=== PATIENT | female | born 1970 | race Caucasian/White ===

== ENCOUNTER → 2017-09-11 15:13 | Outpatient (CLI) | payer MEDICAID, SELFPAY ==
--- NOTE | 2017-09-11 | DI.MG.S_ITS ---
BILATERAL DIGITAL SCREENING MAMMOGRAM 3D/2D WITH CAD: 09/11/2017 CLINICAL: Routine screening. Baseline exam. Family history of breast cancer. No prior exams were available for comparison. The tissue of both breasts is heterogeneously dense. This may lower the sensitivity of mammography. Current study was also evaluated with a Computer Aided Detection (CAD) system. No significant masses, calcifications, or other findings are seen in either breast. IMPRESSION: NEGATIVE There is no mammographic evidence of malignancy. A 1 year screening mammogram is recommended. This exam was interpreted at Station ID: [id number]. NOTE: For mammograms, a report in lay terms will be sent to the patient. Approximately 15% of breast malignancies will not be visualized mammographically. In the management of a palpable breast mass, a negative mammogram must not discourage biopsy of a clinically suspicious lesion. Electronically Signed By: Gualberto amado/cat:09/11/2017 16:01:21 letter sent: Normal Exam ACR BI-RADS Category 1: Negative [id number]
== END ==
PROVIDERS: PCP Family Medicine; Visit Provider Family Medicine
DX: Z12.31 Encounter for screening mammogram for malignant neoplasm of breast (principal); Z80.3 Family history of malignant neoplasm of breast
CPT/HCPCS: 77063; 77067

== ENCOUNTER → 2017-09-17 16:05 | Outpatient (CLI) | payer MEDICAID, SELFPAY ==
--- NOTE | 2017-09-17 16:07 | DI.US.S_ITS ---
PROCEDURE: US PELVIC COMPLETE INDICATIONS: IUD strings lost TECHNIQUE: Real-time scanning was performed of the pelvic organs, with image documentation. Additional endovaginal scanning was necessary due to incomplete visualization of the adnexal and endometrial structures by transabdominal scanning. COMPARISON: CT, ABD/PELVIS W/CON (PNL), 02/05/2006, 11:21. FINDINGS: Transabdominal scanning: Limited scanning through the kidneys shows no hydronephrosis. No pathologic free abdominal or pelvic fluid. Endovaginal scanning: Uterus: Uterus is normal in size at 7.7 x 3.8 x 4.7 cm. The endometrium is not well-visualized. Intrauterine device in expected position. Ovaries: Bilateral simple ovarian cysts are present measuring up to 2.1 cm on the right and 3.2 cm on the left. There is a mildly complex cyst present also within the right ovary measuring up to 1.8 cm. Doppler assessment demonstrates no internal flow. IMPRESSION: 1. Intrauterine device in expected position. 2. Bilateral ovarian cysts, one of which on the right is mildly complex measuring up to 1.8 cm. Recommend short-term followup pelvic ultrasound in 6-12 weeks to assess for interval resolution. Dictated by: Uriah NAVAA Interpreted: Tanja Santiago MD on 09/17/2017 at 16:57 Approved by: Tanja Santiago MD, PhD on 09/18/2017 at 9:27
== END ==
PROVIDERS: PCP Family Medicine; Visit Provider Family Medicine
DX: T83.32XA Displacement of intrauterine contraceptive device, initial encounter (principal); N83.291 Other ovarian cyst, right side; N83.292 Other ovarian cyst, left side
CPT/HCPCS: 76830; 76856

== ENCOUNTER → 2017-10-14 10:50 | Outpatient (CLI) | payer MEDICAID, SELFPAY ==
[2017-10-14 14:27] LABS: Urine N gonorrhoeae NOT DETECTED
[2017-10-14 14:46] LABS: Urine Chlamydia NOT DETECTED
== END ==
PROVIDERS: PCP Family Medicine; Visit Provider Physician Assistant
DX: N72 Inflammatory disease of cervix uteri (principal)
CPT/HCPCS: 87070; 87075; 87205; 87210; 87491; 87591

== ENCOUNTER → 2018-01-06 09:51 | Outpatient (CLI) | payer MEDICAID, SELFPAY | PROVIDERS: PCP Family Medicine; Visit Provider Family Medicine | DX: N89.9 Noninflammatory disorder of vagina, unspecified (principal); N76.0 Acute vaginitis; N75.0 Cyst of Bartholin's gland | CPT/HCPCS: 87070; 87147; 87205; 87491; 87591 ==

== ENCOUNTER → 2018-01-21 14:32 | Outpatient (CLI) | payer MEDICAID, SELFPAY ==
--- NOTE | 2018-01-21 14:34 | DI.US.S_ITS ---
PROCEDURE: US PELVIC COMPLETE INDICATIONS: FOLLOW-UP OVARIAN CYSTS TECHNIQUE: Real-time scanning was performed of the pelvic organs, with image documentation. Additional endovaginal scanning was necessary due to incomplete visualization of the adnexal and endometrial structures by transabdominal scanning. COMPARISON: [facility], US, US PELVIC COMPLETE, 09/17/2017, 16:24. FINDINGS: Transabdominal scanning: Limited scanning through the kidneys shows no hydronephrosis. No pathologic free abdominal or pelvic fluid. Endovaginal scanning: Uterus: Uterus is normal in size at 8.1 x 3.5 x 4.8 cm. The endometrium not well-seen. IUD in expected position. 1.6 cm intramural fibroid and there is a small adjacent calcification measuring 5.0 mm. Ovaries: Right ovary measures 2.6 x 1.5 x 1.4 cm and the left 5.1 x 3.8 x 3.4 cm. Previously visualized complex right ovarian cyst has resolved. There is a new complex cyst involving the left ovary measuring 3.1 x 2.6 x 3.1 cm. 2 additional simple cyst involving the left ovary measuring up to 2.3 cm. Cyst visualized within the cul-de-sac measuring 4.3 x 2.6 x 3.3 cm. IMPRESSION: 1. Resolved previously visualized complex right ovarian cyst. 2. Apparent new complex cyst now involving the left ovary with fine low level echoes measure up to 3.1 cm which may represent a small hemorrhagic cyst or possibly an endometrioma. Short-term followup pelvic ultrasound in 6-12 weeks is recommended to assess for interval resolution. 3. 2 simple cysts involving the left ovary measuring up to 2.3 cm. 4. Presumed parovarian cyst within the cul-de-sac measuring up to 4.3 cm which can also be reassessed on followup examination. Dictated by: Uriah Varela [facility] Interpreted: Tanja Santiago MD on 01/21/2018 at 15:21 Approved by: Tanja Santiago MD, PhD on 01/21/2018 at 16:39
== END ==
PROVIDERS: PCP Family Medicine; Visit Provider Family Medicine
DX: N83.292 Other ovarian cyst, left side (principal); D25.1 Intramural leiomyoma of uterus; N85.8 Other specified noninflammatory disorders of uterus; Z97.5 Presence of (intrauterine) contraceptive device
CPT/HCPCS: 76830; 76856

== ENCOUNTER 2018-06-17 15:15 | Outpatient (RCR) | payer MEDICAID, SELFPAY ==
--- NOTE | 2018-05-12 16:05 | PT.OIE ---
Current Diagnoses Radiculopathy, lumbar region (05/12/18) Past Medical History (Last Reviewed 01/08/18 @ 18:36 by Silva Laws DO) Anxiety (Chronic 2006) Chronic back pain (Chronic 1994) Depression (Chronic 2006) Frequent UTI (Chronic Unknown) Genital warts (Chronic 1991) IBS (irritable bowel syndrome) (Chronic 2007) Painful menstrual periods (Chronic 1991) Abnormal Pap smear of cervix (Resolved 1991) Chickenpox (Resolved 1977) Chlamydia (Resolved 1985) Endometriosis (Resolved 1991) Fibroids (Resolved Unknown) Heavy menstrual period (Resolved 1991) Past Surgical History (Last Reviewed 01/08/18 @ 18:36 by Silva Laws DO) Hx of tonsillectomy (Resolved 1978) Hx of tubal ligation (Resolved 1994) Provider Visit Care Team Role Provider Type Silva Laws DO Attending Provider Physician Primary Care Provider Specialty: Family Practice Address: [address] [place] [address] Email: [email or web address] Physical Therapy Initial Evaluation PT-OP-A Visit Information Start: 05/12/18 17:01 Freq: Status: Active Protocol: Document 05/12/18 16:05 RCC (Rec: 05/12/18 17:30 RCC [email or web address]) Out-Patient Physical Therapy Visit Information Visit Information Visit Type Initial Evaluation Visit Start Time 16:05 Visit Stop Time 16:50 Total Visit Minutes 45 Visit Number 1 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 ago Current Complaints low back pain radiating into R buttock History of Current Condition Pt is a 47 y/o female presenting to physical therapy with a c/o R sided low back pain, with pain into R buttock . She notes occasionally pain into the R posterior and lateral thigh, with tingling but denies numbness. Denies any saddle numbness, or changes in bowel and bladder function. Pt notes a low back injury in her 20's when she was carrying a heavy back of concrete mix, she tripped and dropped the bag, bent forward, caught the bag but had multiple pops in low back and found to have multiple herniated discs. She has had chronic low back pain, which would come and go since then. Over the past month, pt notes pain has intensified, improving somewhat with anti- inflammatories, heat and ice. Pt had done PT in the past with good results. No new FRANSISCO for increased pain, but does admit that pain increased after a trip to/from [email or web address] from this area (prolonged sitting in car). 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 She works full-time. Future Testing and Treatments Planned radiograph and MRI if not improving Treatment Goals Patient/Caregiver Goals to be able to go to the gym to do cardio and weight lifting, improve core strength Prior Functional Status Baseline Function- Work/School no increase in back pain with work related tasks Current Functional Impairments (Reported) Functional Limitations- Work/School increased pain while at work due to prolonged standing, twisting, lifting Personal Factors Other Personal Factors That May Effect current every day smoker, h/o Therapy/Recovery disc herniations in her age of 20's. PT-OP-C Subjective Start: 05/12/18 17:01 Freq: Status: Active Protocol: Document 05/12/18 16:05 RCC (Rec: 05/12/18 17:30 RCC [email or web address]) OP-PT Subjective Patient Comments Patient Comments Low back pain was getting better this week until yesterday, she has had increased pain Patient Questionnaires Oswestry Low Back Index Oswestry Score 22 OP-PT Pain Assessment Location R low back and buttock Intensity 2 Scale Used Numeric (1 - 10) Frequency Intermittent Pain Aggravating Factors Position Standing Sitting Lifting Pain Alleviating Factors Cold Heat Medication PT-OP-D Balance Start: 05/12/18 17:01 Freq: Status: Active Protocol: Document 05/12/18 16:05 RCC (Rec: 05/12/18 17:30 RCC [email or web address]) Balance Tests Single Limb Standing Single Limb- Right 15 sec Single Limb- Left 15 sec PT-OP-F Manual Assessment Start: 05/12/18 17:01 Freq: Status: Active Protocol: Document 05/12/18 16:05 RCC (Rec: 05/12/18 17:30 RCC [email or web address]) Manual Assessments Soft Tissue Assessment Soft Tissue Mobility Assessment moderate tension in R QL, L1-5 paraspinals, piriformis, gluteus medius and jennifer Joint Mobility Assessment Joint Mobility Assessment hypermobile L1, L3-5 PT-OP-H Neuro Start: 05/12/18 17:01 Freq: Status: Active Protocol: Document 05/12/18 16:05 RCC (Rec: 05/12/18 17:30 RCC [email or web address]) Sensation Evaluation Gross Sensation Gross Sensation WNL Deep Tendon Reflex & Clonus Assessment Deep Tendon Reflex Bilateral Achilles Deep Tendon Reflex 2+ Normal Right Patellar Deep Tendon Reflex 2+ Normal Left Patellar Deep Tendon Reflex 3+ Normal But Brisk Ankle Clonus Bilateral Clonus Assessment Absent PT-OP-J Posture/Palpation/Skin Start: 05/12/18 17:01 Freq: Status: Active Protocol: Document 05/12/18 16:05 RCC (Rec: 05/12/18 17:30 RCC [email or web address]) Posture Evaluation Comments Posture Comments Mild lateral sidebent position to the L in the lumbar spine, pelvic shift to the R in frontal plane, increased WB on the LLE PT-OP-K Range of Motion Start: 05/12/18 17:01 Freq: Status: Active Protocol: Document 05/12/18 16:05 RCC (Rec: 05/12/18 17:30 RCC [email or web address]) Lumbar Spine Range of Motion Lumbar Spine Active Percentage Testing Position Standing Lateral Flexion Left 75 Lateral Flexion Right 50 ROM Limitations Soft Tissue Tightness Pain Active Degrees Testing Position Standing Flexion 80 Extension 15 ROM Limitations Soft Tissue Tightness Pain PT-OP-L Special Tests Start: 05/12/18 17:01 Freq: Status: Active Protocol: Document 05/12/18 16:05 RCC (Rec: 05/12/18 17:30 RCC [email or web address]) Special Tests Lumbar Spine Special Tests Prone Instability Test Test Results positive R Comments L1, L3-5 Slump Test Results positive B Manual Traction Test Results negative Straight Leg Raise Test Results positive R Hip Special Tests Scour Test Test Results negative B RHONA Test Results positive R Neural Special Tests- Lower Body Sciatic Nerve Tension Test Results positive B Femoral Nerve Tension Test Results positive R PT-OP-M Strength Start: 05/12/18 17:01 Freq: Status: Active Protocol: Document 05/12/18 16:05 RCC (Rec: 05/12/18 17:30 RCC [email or web address]) Hip Strength Hip Manual Muscle Testing Right Flexion (L2) 4+ Good+ Adduction 5 Normal External Rotation 5 Normal Internal Rotation 5 Normal Left Flexion (L2) 5 Normal Adduction 5 Normal External Rotation 5 Normal Internal Rotation 5 Normal Knee Strength Knee Manual Muscle Testing Right Flexion (S2) 5 Normal Extension (L3) 4+ Good+ Left Flexion (S2) 5 Normal Extension (L3) 5 Normal Ankle/Foot Strength Ankle and Foot Manual Muscle Testing Right Dorsiflexion (L4) 5 Normal Plantarflexion (S1) 4 Good Inversion 5 Normal Eversion (S1) 5 Normal Comments 15 reps SL heel raise Left Dorsiflexion (L4) 5 Normal Plantarflexion (S1) 5 Normal Inversion 5 Normal Eversion (S1) 5 Normal Comments 25 reps SL heel raise Toe Strength Toe Manual Muscle Testing Right Great Toe Extension 5 Normal Left Great Toe Extension 5 Normal PT-OP-Q Treatments Start: 05/12/18 17:01 Freq: Status: Active Protocol: Document 05/12/18 16:05 [facility] (Rec: 05/12/18 17:30 RCC [email or web address]) Therapeutic Exercises Supine Exercises SKC Side bilateral Reps/Minutes 30 sec hold piriformis stretch Side right Reps/Minutes 30 sec gluteal sets Side bilateral Reps/Minutes x10 Comments 5 sec hold (unable to do unilateral) TA activation Supine Exercise Name transverse abdominal activation Side bilateral Reps/Minutes x10 Comments 5 sec hold PT-OP-T Assessment and Plan Start: 05/12/18 17:01 Freq: Status: Active Protocol: Document 05/12/18 16:05 [facility] (Rec: 05/12/18 17:30 RCC [email or web address]) Physical Therapy Assessment Rehab Potential Rehabilitation Potential Good Evaluation Complexity Number of Personal Factors/Comorbidities 1-2 Number of Body Systems Impaired 4 or More Clinical Presentation at Evaluation Stable Impairments Impairments Pain Posture ROM Soft Tissue Mobility Strength Goals LE strength Impairment R hip and knee flexion weakness Alf Goal (LTG) 5/5 hip flexion and knee flexion with manual muscle testing without low back or buttock pain prior to d/c. LTG Duration 6 weeks Recreational Activities Impairment unable to go to the gym due to low back pain Short Term Goal (STG) pt will participate in gym cardio and resistance training 2 days per week for 45 min without increased low back pain. 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 LTG Duration 6 weeks Pain- low back and buttock Impairment 2/10 rating Alf Goal (LTG) 0/10 low back pain with normal work-related tasks prior to d /c. LTG Duration 6 weeks Modified Oswestry Impairment 22% perceived disability Short Term Goal (STG) <12% Modified Oswestry score to demonstrate improvements with functional activities STG Duration 3 weeks Business Education Instructor Goal (LTG) <6% Modified Oswestry score to demonstrate improvements with functional activities LTG Duration 6 weeks Assessment Summary Assessment Pt overall presents with increased tension/tone in the R quadratus lumborum, piriformis, gluteals, and lumbar paraspinals, as well as hypermobility of L1 and L3-5, with pain noted on the R with PA mobilizations. Pt would greatly benefit from skilled physical therapy interventions to decrease low back and buttock pain, centralize her symptoms, improve LE strength and core stability and to return to prior level of recreational activities and work-related tasks without increased low back pain. Pt's neuro signs WNL at this time, but positive SLR noted on the R. Pain mostly into extension of the lumbar spine, no pain with forward flexion, therefore will need to guide pt into activities that do not aggravate her low back pain once her tone is decreased. She was set up with a HEP today, and would benefit from Pt 1x/wk for 6 wks to continue to progress her HEP. Physical Therapy Plan Frequency and Duration Frequency of Treatment 1x/Week Duration of Treatment 6 weeks Plan of Care Start Date 05/12/18 Plan of Care End Date 06/23/18 Therapeutic Interventions Therapeutic Interventions Aquatic Therapy Home Exercise Program Joint Mobilizations Manual Therapy Neuromuscular Re-education Patient/Caregiver Education Self-Care/Home Management Soft Tissue Mobilization Taping Therapeutic Activities Therapeutic Exercises Modalities Cold Pack/Ice Massage Electric Stimulation Hot Packs Traction- Mechanical Ultrasound Next Visit Focus/Plan Next Note Type Treatment Note Next Visit Plan progress core stabilization as tolerated (start with flexion bias), modalities and manual therapy for pain control.
--- NOTE | 2018-06-10 16:45 | PT.OTN ---
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 ago Current Complaints low back pain radiating into R buttock History of Current Condition Pt is a 47 y/o female presenting to physical therapy with a c/o R sided low back pain, with pain into R buttock . She notes occasionally pain into the R posterior and lateral thigh, with tingling but denies numbness. Denies any saddle numbness, or changes in bowel and bladder function. Pt notes a low back injury in her 20's when she was carrying a heavy back of concrete mix, she tripped and dropped the bag, bent forward, caught the bag but had multiple pops in low back and found to have multiple herniated discs. She has had chronic low back pain, which would come and go since then. Over the past month, pt notes pain has intensified, improving somewhat with anti- inflammatories, heat and ice. Pt had done PT in the past with good results. No new FRANSISCO for increased pain, but does admit that pain increased after a trip to/from [place] from this area (prolonged sitting in car). 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 She works full-time. Future Testing and Treatments Planned radiograph and MRI if not improving Treatment Goals Patient/Caregiver Goals to be able to go to the gym to do cardio and weight lifting, improve core strength Prior Functional Status Baseline Function- Work/School no increase in back pain with work related tasks Current Functional Impairments (Reported) Functional Limitations- Work/School increased pain while at work due to prolonged standing, twisting, lifting Personal Factors Other Personal Factors That May Effect current every day smoker, h/o Therapy/Recovery disc herniations in her age of 20's. PT-OP-C Subjective Start: 05/12/18 17:01 Freq: Status: Active Protocol: Document 06/10/18 16:45 RCC (Rec: 06/10/18 17:55 RCC [email or web address]) OP-PT Subjective Patient Comments Patient Comments Pt states her pain has been good this week, she has joined [employer]. PT-OP-D Balance Start: 05/12/18 17:01 Freq: Status: Active Protocol: Document 05/12/18 16:05 RCC (Rec: 05/12/18 17:30 RCC [email or web address]) Balance Tests Single Limb Standing Single Limb- Right 15 sec Single Limb- Left 15 sec PT-OP-F Manual Assessment Start: 05/12/18 17:01 Freq: Status: Active Protocol: Document 06/10/18 16:45 RCC (Rec: 06/10/18 17:55 RCC [email or web address]) Manual Assessments Other Manual Assessments Other Manual Assessments neutral/even ASIS in supine PT-OP-H Neuro Start: 05/12/18 17:01 Freq: Status: Active Protocol: Document 05/12/18 16:05 RCC (Rec: 05/12/18 17:30 RCC [email or web address]) Sensation Evaluation Gross Sensation Gross Sensation WNL Deep Tendon Reflex & Clonus Assessment Deep Tendon Reflex Bilateral Achilles Deep Tendon Reflex 2+ Normal Right Patellar Deep Tendon Reflex 2+ Normal Left Patellar Deep Tendon Reflex 3+ Normal But Brisk Ankle Clonus Bilateral Clonus Assessment Absent PT-OP-J Posture/Palpation/Skin Start: 05/12/18 17:01 Freq: Status: Active Protocol: Document 05/12/18 16:05 RCC (Rec: 05/12/18 17:30 RCC [email or web address]) Posture Evaluation Comments Posture Comments Mild lateral sidebent position to the L in the lumbar spine, pelvic shift to the R in frontal plane, increased WB on the LLE PT-OP-K Range of Motion Start: 05/12/18 17:01 Freq: Status: Active Protocol: Document 05/12/18 16:05 RCC (Rec: 05/12/18 17:30 RCC [email or web address]) Lumbar Spine Range of Motion Lumbar Spine Active Percentage Testing Position Standing Lateral Flexion Left 75 Lateral Flexion Right 50 ROM Limitations Soft Tissue Tightness Pain Active Degrees Testing Position Standing Flexion 80 Extension 15 ROM Limitations Soft Tissue Tightness Pain PT-OP-L Special Tests Start: 05/12/18 17:01 Freq: Status: Active Protocol: Document 05/12/18 16:05 RCC (Rec: 05/12/18 17:30 RCC [email or web address]) Special Tests Lumbar Spine Special Tests Prone Instability Test Test Results positive R Comments L1, L3-5 Slump Test Results positive B Manual Traction Test Results negative Straight Leg Raise Test Results positive R Hip Special Tests Scour Test Test Results negative B RHONA Test Results positive R Neural Special Tests- Lower Body Sciatic Nerve Tension Test Results positive B Femoral Nerve Tension Test Results positive R PT-OP-M Strength Start: 05/12/18 17:01 Freq: Status: Active Protocol: Document 05/12/18 16:05 RCC (Rec: 05/12/18 17:30 RCC [email or web address]) Hip Strength Hip Manual Muscle Testing Right Flexion (L2) 4+ Good+ Adduction 5 Normal External Rotation 5 Normal Internal Rotation 5 Normal Left Flexion (L2) 5 Normal Adduction 5 Normal External Rotation 5 Normal Internal Rotation 5 Normal Knee Strength Knee Manual Muscle Testing Right Flexion (S2) 5 Normal Extension (L3) 4+ Good+ Left Flexion (S2) 5 Normal Extension (L3) 5 Normal Ankle/Foot Strength Ankle and Foot Manual Muscle Testing Right Dorsiflexion (L4) 5 Normal Plantarflexion (S1) 4 Good Inversion 5 Normal Eversion (S1) 5 Normal Comments 15 reps SL heel raise Left Dorsiflexion (L4) 5 Normal Plantarflexion (S1) 5 Normal Inversion 5 Normal Eversion (S1) 5 Normal Comments 25 reps SL heel raise Toe Strength Toe Manual Muscle Testing Right Great Toe Extension 5 Normal Left Great Toe Extension 5 Normal PT-OP-Q Treatments Start: 05/12/18 17:01 Freq: Status: Active Protocol: Document 06/10/18 16:45 RCC (Rec: 06/10/18 17:55 RCC [email or web address]) Cardio Equipment Elliptical Duration (Minutes) 2 Resistance 1 Other retro Recumbent Elliptical (Biodex) Duration (Minutes) 7 Resistance 1 Therapeutic Exercises Supine Exercises supine on foam roll Reps/Minutes 1 min Comments lying on foam roll working on PPT to maintain neutral spine sciatic nerve glide Side bilateral Reps/Minutes x5 each LE Comments tensioner PPT Supine Exercise Name posterior pelvic tilt Side bilateral Reps/Minutes x10 Comments tactile cuing SKC Side bilateral Reps/Minutes 30 sec hold TA activation Supine Exercise Name transverse abdominal activation Side bilateral Reps/Minutes x10 Comments 5 sec hold Standing Exercises triceps push down Side bilateral Resistance L4 Reps/Minutes x15 Other Exercises angry cat Side bilateral Reps/Minutes x10 Comments back to neutral (no cow/camel) PT-OP-T Assessment and Plan Start: 05/12/18 17:01 Freq: Status: Active Protocol: Document 06/10/18 16:45 RCC (Rec: 06/10/18 17:55 RCC [email or web address]) Physical Therapy Assessment Assessment Summary Assessment Pt required tactile cuing for PPT, as well as quadruped angry cat activity. She continues to require verbal cuing for core stabilization with standing exercises, but overall tolerated exercises well without c/o pain. Physical Therapy Plan Frequency and Duration Frequency of Treatment 1x/Week Duration of Treatment 6 weeks Plan of Care Start Date 05/12/18 Plan of Care End Date 06/23/18 Next Visit Focus/Plan Next Note Type Treatment Note Next Visit Plan advance core stabilization, TA and PPT on foam roll
--- NOTE | 2018-06-17 16:30 | PT.OTN ---
Current Diagnoses Radiculopathy, lumbar region (06/17/18) Physical Therapy Treatment Note PT-OP-A Visit Information Start: 05/12/18 17:01 Freq: Status: Active Protocol: Document 06/17/18 16:18 SA (Rec: 06/17/18 16:30 SA [email or web address]) Out-Patient Physical Therapy Visit Information Visit Information Visit Type Treatment Note Visit Start Time 15:15 Visit Stop Time 15:55 Total Visit Minutes 40 Visit Number 3 Number of TMD TEACHER Visits 1 PT-OP-B Current Condition Start: 05/12/18 17:01 Freq: Status: Active Protocol: Document 05/12/18 16:05 RCC (Rec: 05/12/18 17:30 RCC [email or web address]) Current Condition History of Current Condition Onset Date 1 mo. ago Current Complaints low back pain radiating into R buttock History of Current Condition Pt is a 47 y/o female presenting to physical therapy with a c/o R sided low back pain, with pain into R buttock . She notes occasionally pain into the R posterior and lateral thigh, with tingling but denies numbness. Denies any saddle numbness, or changes in bowel and bladder function. Pt notes a low back injury in her 20's when she was carrying a heavy back of concrete mix, she tripped and dropped the bag, bent forward, caught the bag but had multiple pops in low back and found to have multiple herniated discs. She has had chronic low back pain, which would come and go since then. Over the past month, pt notes pain has intensified, improving somewhat with anti- inflammatories, heat and ice. Pt had done PT in the past with good results. No new FRANSISCO for increased pain, but does admit that pain increased after a trip to/from [email or web address] from this area (prolonged sitting in car). 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 She works full-time. Future Testing and Treatments Planned radiograph and MRI if not improving Treatment Goals Patient/Caregiver Goals to be able to go to the gym to do cardio and weight lifting, improve core strength Prior Functional Status Baseline Function- Work/School no increase in back pain with work related tasks Current Functional Impairments (Reported) Functional Limitations- Work/School increased pain while at work due to prolonged standing, twisting, lifting Personal Factors Other Personal Factors That May Effect current every day smoker, h/o Therapy/Recovery disc herniations in her age of 20's. PT-OP-C Subjective Start: 05/12/18 17:01 Freq: Status: Active Protocol: Document 06/17/18 16:18 SA (Rec: 06/17/18 16:30 SA [email or web address]) OP-PT Subjective Patient Comments Patient Comments Pt reports progress, almost completely symtom free. Much more aware of core and able to stailize better with work tasks. PT-OP-D Balance Start: 05/12/18 17:01 Freq: Status: Active Protocol: Document 05/12/18 16:05 RCC (Rec: 05/12/18 17:30 RCC [email or web address]) Balance Tests Single Limb Standing Single Limb- Right 15 sec Single Limb- Left 15 sec PT-OP-F Manual Assessment Start: 05/12/18 17:01 Freq: Status: Active Protocol: Document 06/10/18 16:45 RCC (Rec: 06/10/18 17:55 RCC [email or web address]) Manual Assessments Other Manual Assessments Other Manual Assessments neutral/even ASIS in supine PT-OP-H Neuro Start: 05/12/18 17:01 Freq: Status: Active Protocol: Document 05/12/18 16:05 RCC (Rec: 05/12/18 17:30 RCC [email or web address]) Sensation Evaluation Gross Sensation Gross Sensation WNL Deep Tendon Reflex & Clonus Assessment Deep Tendon Reflex Bilateral Achilles Deep Tendon Reflex 2+ Normal Right Patellar Deep Tendon Reflex 2+ Normal Left Patellar Deep Tendon Reflex 3+ Normal But Brisk Ankle Clonus Bilateral Clonus Assessment Absent PT-OP-J Posture/Palpation/Skin Start: 05/12/18 17:01 Freq: Status: Active Protocol: Document 05/12/18 16:05 RCC (Rec: 05/12/18 17:30 RCC [email or web address]) Posture Evaluation Comments Posture Comments Mild lateral sidebent position to the L in the lumbar spine, pelvic shift to the R in frontal plane, increased WB on the LLE PT-OP-K Range of Motion Start: 05/12/18 17:01 Freq: Status: Active Protocol: Document 05/12/18 16:05 RCC (Rec: 05/12/18 17:30 RCC [email or web address]) Lumbar Spine Range of Motion Lumbar Spine Active Percentage Testing Position Standing Lateral Flexion Left 75 Lateral Flexion Right 50 ROM Limitations Soft Tissue Tightness Pain Active Degrees Testing Position Standing Flexion 80 Extension 15 ROM Limitations Soft Tissue Tightness Pain PT-OP-L Special Tests Start: 05/12/18 17:01 Freq: Status: Active Protocol: Document 05/12/18 16:05 RCC (Rec: 05/12/18 17:30 RCC [email or web address]) Special Tests Lumbar Spine Special Tests Prone Instability Test Test Results positive R Comments L1, L3-5 Slump Test Results positive B Manual Traction Test Results negative Straight Leg Raise Test Results positive R Hip Special Tests Scour Test Test Results negative B RHONA Test Results positive R Neural Special Tests- Lower Body Sciatic Nerve Tension Test Results positive B Femoral Nerve Tension Test Results positive R PT-OP-M Strength Start: 05/12/18 17:01 Freq: Status: Active Protocol: Document 05/12/18 16:05 [facility] (Rec: 05/12/18 17:30 RCC [email or web address]) Hip Strength Hip Manual Muscle Testing Right Flexion (L2) 4+ Good+ Adduction 5 Normal External Rotation 5 Normal Internal Rotation 5 Normal Left Flexion (L2) 5 Normal Adduction 5 Normal External Rotation 5 Normal Internal Rotation 5 Normal Knee Strength Knee Manual Muscle Testing Right Flexion (S2) 5 Normal Extension (L3) 4+ Good+ Left Flexion (S2) 5 Normal Extension (L3) 5 Normal Ankle/Foot Strength Ankle and Foot Manual Muscle Testing Right Dorsiflexion (L4) 5 Normal Plantarflexion (S1) 4 Good Inversion 5 Normal Eversion (S1) 5 Normal Comments 15 reps SL heel raise Left Dorsiflexion (L4) 5 Normal Plantarflexion (S1) 5 Normal Inversion 5 Normal Eversion (S1) 5 Normal Comments 25 reps SL heel raise Toe Strength Toe Manual Muscle Testing Right Great Toe Extension 5 Normal Left Great Toe Extension 5 Normal PT-OP-Q Treatments Start: 05/12/18 17:01 Freq: Status: Active Protocol: Document 06/17/18 16:18 SA (Rec: 06/17/18 16:30 SA [email or web address]) Cardio Equipment Recumbent Elliptical (Biodex) Duration (Minutes) 8 Resistance 2 Therapeutic Exercises Supine Exercises [place] stretch Side bilateral Reps/Minutes 20 x 2 each supine on foam roll Reps/Minutes 3 min Comments lying on foam roll working on PPT to maintain neutral spine sciatic nerve glide Side bilateral Reps/Minutes x5 each LE Comments tensioner PPT Supine Exercise Name posterior pelvic tilt Side bilateral Reps/Minutes x10 Comments tactile cuing SKC Side bilateral Reps/Minutes 30 sec hold TA activation Supine Exercise Name transverse abdominal activation Side bilateral Reps/Minutes x10 Comments 5 sec hold Sidelying Exercises PT ball pelvic tilts Equipment Used 65 cm ball Reps/Minutes 10x Sitting Exercises PT ball pelvic clocks Equipment Used 65 cm ball Reps/Minutes 10x Comments clock/counter clockwise Other Exercises angry cat Side bilateral Reps/Minutes 12x Comments back to neutral (no cow/camel) PT-OP-T Assessment and Plan Start: 05/12/18 17:01 Freq: Status: Active Protocol: Document 06/17/18 16:18 SA (Rec: 06/17/18 16:30 SA [email or web address]) Physical Therapy Assessment Progress Towards Goals Progress Towards Goals Progressing Toward Goals Assessment Summary Assessment Pt progressing well with significant decrease in LB symptoms, consistent with HEP. Given pigeon stretch and PT ball pelvic exercises for HEP. Pt tolerated progressions well. Physical Therapy Plan Next Visit Focus/Plan Next Note Type Treatment Note Next Visit Plan Pt states she feels really good and asks to move next appt out 2 weeks. Updated HEP, reviewed body mechanics for work and discussed progressions at gym where she plans to go 2x/wk. Re-assess next visit in 2 weeks.
--- NOTE | 2018-07-07 13:50 | PT.OPDS ---
Current Diagnoses Radiculopathy, lumbar region (06/17/18) Provider Visit Care Team Role Provider Type Silva Laws DO Attending Provider Physician Primary Care Provider Specialty: Family Practice Address: [address] [place] [address], [id number] Email: [email or web address] Visit Number Visit Number 3 Discharge Summary PT-OP-B Current Condition Start: 05/12/18 17:01 Freq: Status: Active Protocol: Document 05/12/18 16:05 RCC (Rec: 05/12/18 17:30 RCC [email or web address]) Current Condition History of Current Condition Onset Date 1 mo. ago Current Complaints low back pain radiating into R buttock History of Current Condition Pt is a 47 y/o female presenting to physical therapy with a c/o R sided low back pain, with pain into R buttock . She notes occasionally pain into the R posterior and lateral thigh, with tingling but denies numbness. Denies any saddle numbness, or changes in bowel and bladder function. Pt notes a low back injury in her 20's when she was carrying a heavy back of concrete mix, she tripped and dropped the bag, bent forward, caught the bag but had multiple pops in low back and found to have multiple herniated discs. She has had chronic low back pain, which would come and go since then. Over the past month, pt notes pain has intensified, improving somewhat with anti- inflammatories, heat and ice. Pt had done PT in the past with good results. No new FRANSISCO for increased pain, but does admit that pain increased after a trip to/from [employer] from this area (prolonged sitting in car). 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 Future Testing and Treatments Planned radiograph and MRI if not improving Treatment Goals Patient/Caregiver Goals to be able to go to the gym to do cardio and weight lifting, improve core strength Prior Functional Status Baseline Function- Work/School no increase in back pain with work related tasks Current Functional Impairments (Reported) Functional Limitations- Work/School increased pain while at work due to prolonged standing, twisting, lifting Personal Factors Other Personal Factors That May Effect current every day smoker, h/o Therapy/Recovery disc herniations in her age of 20's. PT-OP-C Subjective Start: 05/12/18 17:01 Freq: Status: Active Protocol: Document 07/07/18 13:46 RCC (Rec: 07/07/18 13:50 RCC [email or web address]) OP-PT Subjective Patient Comments Patient Comments Pt called into the clinic and requested d/c at this time, leaving a message stating she was doing great and does not feel like she needs to come to physical therapy anymore. PT-OP-D Balance Start: 05/12/18 17:01 Freq: Status: Active Protocol: Document 05/12/18 16:05 RCC (Rec: 05/12/18 17:30 RCC [email or web address]) Balance Tests Single Limb Standing Single Limb- Right 15 sec Single Limb- Left 15 sec PT-OP-F Manual Assessment Start: 05/12/18 17:01 Freq: Status: Active Protocol: Document 06/10/18 16:45 RCC (Rec: 06/10/18 17:55 RCC [email or web address]) Manual Assessments Other Manual Assessments Other Manual Assessments neutral/even ASIS in supine PT-OP-H Neuro Start: 05/12/18 17:01 Freq: Status: Active Protocol: Document 05/12/18 16:05 RCC (Rec: 05/12/18 17:30 RCC [email or web address]) Sensation Evaluation Gross Sensation Gross Sensation WNL Deep Tendon Reflex & Clonus Assessment Deep Tendon Reflex Bilateral Achilles Deep Tendon Reflex 2+ Normal Right Patellar Deep Tendon Reflex 2+ Normal Left Patellar Deep Tendon Reflex 3+ Normal But Brisk Ankle Clonus Bilateral Clonus Assessment Absent PT-OP-J Posture/Palpation/Skin Start: 05/12/18 17:01 Freq: Status: Active Protocol: Document 05/12/18 16:05 RCC (Rec: 05/12/18 17:30 RCC [email or web address]) Posture Evaluation Comments Posture Comments Mild lateral sidebent position to the L in the lumbar spine, pelvic shift to the R in frontal plane, increased WB on the LLE PT-OP-K Range of Motion Start: 05/12/18 17:01 Freq: Status: Active Protocol: Document 05/12/18 16:05 RCC (Rec: 05/12/18 17:30 RCC [email or web address]) Lumbar Spine Range of Motion Lumbar Spine Active Percentage Testing Position Standing Lateral Flexion Left 75 Lateral Flexion Right 50 ROM Limitations Soft Tissue Tightness Pain Active Degrees Testing Position Standing Flexion 80 Extension 15 ROM Limitations Soft Tissue Tightness Pain PT-OP-L Special Tests Start: 05/12/18 17:01 Freq: Status: Active Protocol: Document 05/12/18 16:05 RCC (Rec: 05/12/18 17:30 RCC [email or web address]) Special Tests Lumbar Spine Special Tests Prone Instability Test Test Results positive R Comments L1, L3-5 Slump Test Results positive B Manual Traction Test Results negative Straight Leg Raise Test Results positive R Hip Special Tests Scour Test Test Results negative B RHONA Test Results positive R Neural Special Tests- Lower Body Sciatic Nerve Tension Test Results positive B Femoral Nerve Tension Test Results positive R PT-OP-M Strength Start: 05/12/18 17:01 Freq: Status: Active Protocol: Document 05/12/18 16:05 RCC (Rec: 05/12/18 17:30 [facility] [email or web address]) Hip Strength Hip Manual Muscle Testing Right Flexion (L2) 4+ Good+ Adduction 5 Normal External Rotation 5 Normal Internal Rotation 5 Normal Left Flexion (L2) 5 Normal Adduction 5 Normal External Rotation 5 Normal Internal Rotation 5 Normal Knee Strength Knee Manual Muscle Testing Right Flexion (S2) 5 Normal Extension (L3) 4+ Good+ Left Flexion (S2) 5 Normal Extension (L3) 5 Normal Ankle/Foot Strength Ankle and Foot Manual Muscle Testing Right Dorsiflexion (L4) 5 Normal Plantarflexion (S1) 4 Good Inversion 5 Normal Eversion (S1) 5 Normal Comments 15 reps SL heel raise Left Dorsiflexion (L4) 5 Normal Plantarflexion (S1) 5 Normal Inversion 5 Normal Eversion (S1) 5 Normal Comments 25 reps SL heel raise Toe Strength Toe Manual Muscle Testing Right Great Toe Extension 5 Normal Left Great Toe Extension 5 Normal PT-OP-T Assessment and Plan Start: 05/12/18 17:01 Freq: Status: Active Protocol: Document 07/07/18 13:46 RCC (Rec: 07/07/18 13:50 [facility] [email or web address]) Physical Therapy Assessment Assessment Summary Assessment Pt self-reported feeling great and requesting d/c from physical therapy at this point. Pt was trained on core stability activities as well as proper pelvic alignment and positioning with relation to work-related tasks and functional activities. Objective measures were unable to be taken since initial evaluation on 05/12/2018. Pt attended only 3 physical therapy sessions including her initial evaluation. Recommend pt follow up with her PCP if symptoms return or worsen. She has an established HEP and should continue to perform this as instructed. Physical Therapy Plan Discharge Physical Therapy Discharge Reasons Patient Request
== END 2018-07-21 10:17 | disposition home or self-care (01) ==
LOC: PHYS 15:15
PROVIDERS: PCP Family Medicine; Visit Provider Family Medicine
DX: M54.16 Radiculopathy, lumbar region (principal)
CPT/HCPCS: 97110; 97161

== ENCOUNTER → 2020-08-16 10:49 | Outpatient (CLI) | payer OTHER, MEDICAID, SELFPAY ==
--- NOTE | 2020-08-16 | DI.RAD.S_ITS ---
PROCEDURE: XR LUMBAR SPINE 2-3V INDICATIONS: LOW BACK PAIN TECHNIQUE: 3 views of the lumbar spine were acquired. COMPARISON: None. FINDINGS: Bones: 5 [id number] vertebrae are present. There is normal bony alignment. No vertebral body compression fractures. No suspicious bony lesions. Convex right thoracolumbar scoliosis present. Disc space narrowing and hypertrophic facet joints noted at the thoracolumbar junction as well as in the lower lumbar spine particularly at L4-5 and L5-S1. Soft tissues: Overlying bowel gas pattern is normal. No suspicious soft tissue calcifications. Intrauterine device noted in the midline, and there are several surgical clips present as well IMPRESSION: Multilevel degenerative disc disease and arthropathy particularly lower lumbar spine. Associated degenerative thoracolumbar dextroscoliosis. Dictated by: Angelo Pina M.D. on 08/16/2020 at 12:46 Approved by: Angelo Pina M.D. on 08/16/2020 at 13:32
== END ==
PROVIDERS: PCP Family Medicine; Referring Provider Chiropractor; Visit Provider Chiropractor
DX: M54.5 Low back pain (principal); M51.36 Other intervertebral disc degeneration, lumbar region; M51.37 Other intervertebral disc degeneration, lumbosacral region; M47.816 Spondylosis without myelopathy or radiculopathy, lumbar region; M47.817 Spondylosis without myelopathy or radiculopathy, lumbosacral region; M41.35 Thoracogenic scoliosis, thoracolumbar region
CPT/HCPCS: 72100

== ENCOUNTER 2021-02-17 11:40 | Emergency (ER) | payer OTHER, MEDICAID, SELFPAY ==
[2021-02-17 12:01] VITALS: BP 134/88; PULSE 77; RESP 18; TEMP 36.9; O2SAT 99; BMI 22.8
--- NOTE | 2021-02-17 12:46 | ED_ITS ---
HPI - Back Pain/Injury General Chief Complaint: Back Pain/Injury Stated Complaint: bowel issues Time Seen by Provider: 02/17/21 12:45 Source: patient Mode of arrival: Ambulatory Limitations: no limitations History of Present Illness HPI Narrative: This is a 50-year-old female who comes in with complaint of rectal spasm and pain. Patient has a history of IBS and levator an eye syndrome. 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 Patient states since then she has had i ntermittent flares she can usually control it with hot baths and ibuprofen but for the last 2 days she has not. She has had quite a bit of rectal pain and spasm. 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 She denies fevers or chills. She denies any abdominal pain, no back or flank pain. No dysuria urgency or frequency. No black or bloody stools. She has been stooling but states the very small ?rabbit turds?. She states it is hard for her to have bowel movements when it is spasmed and painful. She does not take any other daily medications at this point. She has asked her physician for refills of her mental but does not have any. Patient denies any other major medical issues. She does smoke she drinks alcohol but does not use any illicit drugs. Related Data Previous Rx's Medication Instructions Recorded naproxen 500 mg tablet 500 mg PO BID #60 tab 04/13/18 oxycodone-acetaminophen 5 mg-325 2 tab PO Q4-6H PRN #24 tab 04/13/18 mg tablet (Percocet) bupropion HCl 300 mg 24 hr tablet, 300 mg PO QAM #90 tab 09/06/18 extended release dicyclomine 20 mg tablet 20 mg PO Q6H #120 tab 02/03/19 dicyclomine 20 mg tablet 20 mg PO QID PRN #20 tab 02/17/21 Allergies Allergy/AdvReac Type Severity Reaction Status Date / Time meperidine [From Demerol] Allergy Severe paralysis Verified 04/13/18 09:11 Penicillins [PENICILLINS] Allergy Unknown Verified 04/13/18 09:11 Review of Systems Review of Systems ROS Unobtainable: All systems reviewed & are unremarkable except as noted in HPI and below Patient History Medical History Abnormal Pap smear of cervix (1991) Anxiety (2006) Chickenpox (1977) Chlamydia (1985) Chronic back pain (1994) Depression (2006) Endometriosis (1991) Fibroids (Unknown) Frequent UTI (Unknown) Genital warts (1991) Heavy menstrual period (1991) IBS (irritable bowel syndrome) (2007) Painful menstrual periods (1991) Surgical History Hx of tonsillectomy (1978) Hx of tubal ligation (1994) Family History (Updated 10/21/17 @ 12:43 by Gisela Mckeon LPN) Father Age: 73 Heart disease Hypertension High cholesterol Mother Mental health problem Grandfather Heart disease Hypertension Grandmother No problems noted. Grandfather No problems noted. Grandmother Cancer Social History Smoking Status: Current every day smoker alcohol intake: current Smoking Status: Current every day smoker alcohol intake frequency: 3 or more drinks per day Substance Use Type: does not use Exam Narrative Exam Narrative: GENERAL: Alert and oriented x three, female in mild distress. HEENT: Head normocephalic, atraumatic, EOMI, pupils reactive, face symmetric, moist mucous membranes NECK: Supple, full range of motion CARDIOVASCULAR: Regular rate and rhythm without murmurs, rubs or gallops. RESPIRATORY: Breath sounds equal bilaterally, no wheezes rales or rhonchi. ABDOMEN: Soft, nontender. Normoactive bowel sounds all 4 quadrants. No guarding or rebound, rigidity, no mass, patient politely defers rectal exam. : No CVA tenderness EXTREMITIES: Normal range of motion, no clubbing or edema. Neurovascularly intact NEUROLOGICAL: Cranial nerves II through XII grossly intact. Moving all extremities SKIN: Warm, dry, no petechiae, no rashes or lesions. Initial Vital Signs Initial Vital Signs: Vital Signs Temperature 98.4 F 02/17/21 12:01 Pulse Rate 77 02/17/21 12:01 Respiratory Rate 18 02/17/21 12:01 Blood Pressure 134/88 02/17/21 12:01 Pulse Oximetry 99 02/17/21 12:01 Course Orders Ordered: Discontinued Medications Dicyclomine HCl (Dicyclomine 10 Mg Capsule) 20 mg PO NOW ONE Stop: 02/17/21 12:54 Last Admin: 02/17/21 13:09 Dose: 20 mg Documented by: GT Vital Signs Vital signs: Vital Signs - 8 hr 02/17/21 12:01 Temperature 98.4 F Pulse Rate 77 Respiratory Rate 18 Blood Pressure 134/88 Pulse Oximetry 99 MDM - Back Pain/Injury MDM Narrative Medical decision making narrative: This is a 50-year-old female who is having acute on chronic pain with rectal spasm which is typical of her Levator Ani Syndrome. She has had good relief with Bentyl in the past she was on it daily for many years but has not taken it for the past 2 years. She has tried hot baths and typical treatments which are appropriate with minimal improvement. Discussed short prescription for Bentyl and discussing with her physician about possibly using it as needed when she is not able to control her symptoms otherwise. Patient feels comfortable with this plan. Discharge Plan Departure Patient Disposition: Home Clinical Impression: Rectal sphincter spasm Activity Restrictions/Additional Instructions: Follow-up with your physician. This medication may be helpful as an intermittent medication when your symptoms flare. It is not recommended to take every day chronically. Continue with hot baths regularly. You may take dicyclomine 1 tablet every 6 hours as needed. If you are having hard stools or constipation short course of fiber or high- fiber foods can be helpful. Make sure you are drinking plenty of water so that these are effective. Prescription sent to [facility] in [place] Please return for fevers, new or worsening abdominal, back or rectal pain, black or bloody stools, vomiting, difficulty or inability to have a bowel movement, new urinary symptoms or other new or concerning symptoms. Prescriptions: New dicyclomine 20 mg tablet 20 mg PO QID PRN (Reason: spasms) Qty: 20 RF: 0 No Action oxycodone-acetaminophen [Percocet] 5-325 mg tablet 2 tab PO Q4-6H PRN (Reason: pain) Qty: 24 RF: 0 naproxen 500 mg tablet 500 mg PO BID Qty: 60 RF: 0 bupropion HCl 300 mg tablet extended release 24 hr 300 mg PO QAM Qty: 90 RF: 3 dicyclomine 20 mg tablet 20 mg PO Q6H Qty: 120 RF: 0 Referrals: Apple Summers MD [Primary Care Provider] -
[2021-02-17] MEDS: DICYCLOMINE 10 MG CAPSULE 20 MG PO (13:09)
== END 2021-02-17 13:15 | disposition home or self-care (01) ==
PROVIDERS: Emergency Provider Emergency Medicine; PCP Family Medicine
DX: K59.4 Anal spasm (principal)

== ENCOUNTER 2021-02-17 19:55 | Emergency (ER) | payer OTHER, MEDICAID, SELFPAY ==
[2021-02-17 19:57] VITALS: BP 157/94; PULSE 111; RESP 24; TEMP 36.8; O2SAT 95
== END 2021-02-17 21:46 | disposition left against medical advice (07) ==
PROVIDERS: Emergency Provider Emergency Medicine; PCP Family Medicine
DX: R10.9 Unspecified abdominal pain (principal)

== ENCOUNTER 2021-02-17 23:36 | Emergency (ER) | payer OTHER, MEDICAID, SELFPAY ==
[2021-02-17 23:50] VITALS: BP 185/115; PULSE 109; RESP 20; TEMP 37.3; O2SAT 100; BMI 23.6
--- NOTE | 2021-02-18 | ED.ABDPAIN ---
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 SHe had largely been well controlled for some time and had been taken off of her chronic meds (Bentyl) by her PCP about 2 years ago. She presents with about 3 days of severe rectal spasms. She was seen and evaluated earlier today and had the diagnosis of rectal spasm with prescription for Bentyl. She returns because after going home she was unable to control her symptoms. She denies any fever chills, she has had no nausea or vomiting and she denies any other abdominal pain. She states she has had no rectal bleeding or discharge. She denies hemorrhoids or other problems. Years ago she had the diagnosis of rectal prolapse and had a surgery which significantly helped her. She tends to experience significant relief when using a warm bath with Epson salts but during this episode her symptoms seem to come back immediately after getting out of the bath. She denies any dysuria, frequency or urgency. She otherwise denies any obvious provocation or palliation, she has no radiation, she states that it is keeping her awake at night which is admittedly making it more difficult for her to tolerate Related Data Previous Rx's Medication Instructions Recorded naproxen 500 mg tablet 500 mg PO BID #60 tab 04/13/18 oxycodone-acetaminophen 5 mg-325 2 tab PO Q4-6H PRN #24 tab 04/13/18 mg tablet (Percocet) bupropion HCl 300 mg 24 hr tablet, 300 mg PO QAM #90 tab 09/06/18 extended release dicyclomine 20 mg tablet 20 mg PO Q6H #120 tab 02/03/19 dicyclomine 20 mg tablet 20 mg PO QID PRN #20 tab 02/17/21 cyclobenzaprine 10 mg tablet 10 mg PO TID PRN #14 tab 02/18/21 oxycodone 5 mg tablet 5 mg PO Q4-6H PRN #10 tab 02/18/21 Allergies Allergy/AdvReac Type Severity Reaction Status Date / Time meperidine [From Demerol] Allergy Severe paralysis Verified 04/13/18 09:11 Penicillins [PENICILLINS] Allergy Unknown Verified 04/13/18 09:11 Review of Systems Review of Systems Narrative: GENERAL: Denies chills, fatigue, malaise, fever, sweats. HEENT: Denies sinus pain, ear pain, sore throat, difficulty swallowing, dizziness. RESPIRATORY: Denies dyspnea, cough, wheezing, hemoptysis, sputum. CARDIOVASCULAR: Denies chest pain, palpitations, orthopnea, edema, GASTROINTESTINAL: See HPI : Denies dysuria, frequency, incontinence, hematuria, urinary retention. MUSCULOSKELETAL: denies weakness, joint pain, or bony pain SKIN: Denies rash, skin lesions, or other NEUROLOGIC: Denies weakness, headache, numbness, change in speech, confusion, seizures, incoordination. PSYCHIATRIC: No concerning psychosocial issues. 12 point review of systems is negative except for those stated above Patient History Medical History Abnormal Pap smear of cervix (1991) Anxiety (2006) Chickenpox (1977) Chlamydia (1985) Chronic back pain (1994) Depression (2006) Endometriosis (1991) Fibroids (Unknown) Frequent UTI (Unknown) Genital warts (1991) Heavy menstrual period (1991) IBS (irritable bowel syndrome) (2007) Painful menstrual periods (1991) Surgical History Hx of tonsillectomy (1978) Hx of tubal ligation (1994) Family History Father Age: 73 Heart disease Hypertension High cholesterol Mother Mental health problem Grandfather Heart disease Hypertension Grandmother No problems noted. Grandfather No problems noted. Grandmother Cancer Social History Smoking Status: Current every day smoker alcohol intake: current Smoking Status: Current every day smoker alcohol intake frequency: 3 or more drinks per day Substance Use Type: does not use Exam Narrative Exam Narrative: GEN: AOx3 and in mild distress, tearful EYES: Pupils are equal, round, and reactive to light and accommodation. Extraoccular muscles are intact bilaterally. There is no subconjunctival hemorrhage or exudate. CHEST: Lungs are clear to auscultation bilaterally and free of wheezes, rales, or rhonchi. Heart rate is regular rhythm, there are no murmurs, clicks, rubs, or gallops. There is no chest wall tenderness. ABD: Abdomen is soft and nontender. There is no guarding or rebound. Bowel sounds are normal in all 4 quadrants. There is no mass or organomegaly. RECTAL: no bleeding, hemorrhoid, obvious fissure or internal mass EXT: Full painless ROM of all extremities with no loss of sensation or strength. SKIN: Warm, pink, and dry. No erythema or rash Initial Vital Signs Initial Vital Signs: Vital Signs Temperature 99.1 F 02/17/21 23:50 Pulse Rate 109 H 02/17/21 23:50 Respiratory Rate 20 02/17/21 23:50 Blood Pressure 185/115 H 02/17/21 23:50 Pulse Oximetry 100 02/17/21 23:50 Course Orders Ordered: Discontinued Medications Cyclobenzaprine HCl (Cyclobenzaprine 10 Mg Prepack) 1 bottle MISC SEEINSTR ONE Stop: 02/18/21 00:10 Last Admin: 02/18/21 00:22 Dose: 1 bottle Documented by: TAE Oxycodone/Acetaminophen (Oxycodone/Apap 5/325 Prepack) 1 bottle MISC SEEINSTR ONE Stop: 02/18/21 00:10 Last Admin: 02/18/21 00:22 Dose: 1 bottle Documented by: TAE Vital Signs Vital signs: Vital Signs - 8 hr 02/17/21 23:50 Temperature 99.1 F Pulse Rate 109 H Respiratory Rate 20 Blood Pressure 185/115 H Pulse Oximetry 100 Discharge Plan Departure Patient Disposition: Home Clinical Impression: Rectal sphincter spasm Activity Restrictions/Additional Instructions: *You have been diagnosed with [rectal pain due to spasming.] *What to do: *Please continue to take your regular medications as directed. [x ] New medication prescriptions sent to your pharmacy: [[facility] in [place] ] [ ] New medication written as a paper prescription [ ] No new medications given *Please follow up with your primary care provider in 2-3 days, call for an appointment. Let them know you were seen in the Emergency Department and that we ask that you be seen in follow up. We will electronically transmit a record of today's note if your PCP is in our system *I've also included contact information for our local surgery office. Please call the number listed below for follow-up, let them know you were seen in the emergency department and we would like you to be seen in follow-up. I will externally transmitted record of today's no *If you do not have a primary care provider please contact the [facility] Resource line at [phone]. They will ask some questions about your medical history and help get you set up with a doctor in the community. *Return to Emergency Department if you should have any new, worsening or concerning symptoms, such as [fever greater than 101 F, shaking chills, worsening pain, persistent vomiting or other bothersome symptoms] Prescriptions: New oxycodone 5 mg tablet 5 mg PO Q4-6H PRN (Reason: pain) Qty: 10 RF: 0 cyclobenzaprine 10 mg tablet 10 mg PO TID PRN (Reason: muscle spasm) Qty: 14 RF: 0 No Action oxycodone-acetaminophen [Percocet] 5-325 mg tablet 2 tab PO Q4-6H PRN (Reason: pain) Qty: 24 RF: 0 naproxen 500 mg tablet 500 mg PO BID Qty: 60 RF: 0 bupropion HCl 300 mg tablet extended release 24 hr 300 mg PO QAM Qty: 90 RF: 3 dicyclomine 20 mg tablet 20 mg PO Q6H Qty: 120 RF: 0 dicyclomine 20 mg tablet 20 mg PO QID PRN (Reason: spasms) Qty: 20 RF: 0 Referrals: Apple Summers MD [Primary Care Provider] -
[2021-02-18] MEDS: OXYCODONE/APAP 5/325 PREPACK 1 BOTTLE MISC (00:22)
[2021-02-18] MEDS: CYCLOBENZAPRINE 10 MG PREPACK 1 BOTTLE MISC (00:22)
== END 2021-02-18 00:27 | disposition home or self-care (01) ==
PROVIDERS: Emergency Provider Emergency Medicine; PCP Family Medicine
DX: K59.4 Anal spasm (principal); R10.9 Unspecified abdominal pain
CPT/HCPCS: 99281; 99282; 99283

== ENCOUNTER 2021-09-13 21:04 | Emergency (ER) | payer OTHER, MEDICAID, SELFPAY ==
[2021-09-13 21:18] VITALS: BP 167/92; PULSE 76; PULSE 98; RESP 16; TEMP 37.1; O2SAT 97; BMI 24.3
--- NOTE | 2021-09-13 21:27 | ED.NEUROSD ---
HPI - Neuro Symptoms/Deficit General Chief Complaint: Neuro Symptoms/Deficit Stated Complaint: Sharp pain in head, arm numb/not working right Time Seen by Provider: 09/13/21 21:16 Source: patient Mode of arrival: Ambulatory Limitations: no limitations History of Present Illness HPI Narrative: Patient is a 51-year-old female who comes to the emergency department for evaluation of a sudden onset of a sharp headache that has now resolved and now stating that her right arm is not working right. States she was sitting on the couch drinking beer when the symptoms started. Headache which sharp. Lasted for seconds and then completely resolved. She states that since that time she is unable to use her right hand normally. She states that it is tingling from her wrist to her fingers. She reports no other symptoms associated with the event. On Anticoagulants: No Related Data Previous Rx's Medication Instructions Recorded naproxen 500 mg tablet 500 mg PO BID #60 tabs 04/13/18 oxycodone-acetaminophen 5 mg-325 2 tab PO Q4-6H PRN pain #24 tabs 04/13/18 mg tablet (Percocet) bupropion HCl 300 mg 24 hr tablet, 300 mg PO QAM #90 tabs 09/06/18 extended release dicyclomine 20 mg tablet 20 mg PO Q6H #120 tabs 02/03/19 dicyclomine 20 mg tablet 20 mg PO QID PRN spasms #20 tabs 02/17/21 cyclobenzaprine 10 mg tablet 10 mg PO TID PRN muscle spasm #14 02/18/21 tabs oxycodone 5 mg tablet 5 mg PO Q4-6H PRN pain #10 tabs 02/18/21 Allergies Allergy/AdvReac Type Severity Reaction Status Date / Time meperidine [From Demerol] Allergy Severe paralysis Verified 04/13/18 09:11 Penicillins [PENICILLINS] Allergy Unknown Verified 04/13/18 09:11 amoxicillin Allergy Verified 09/13/21 21:18 Review of Systems Constitutional Constitutional: Reports system reviewed and no additional complaints, except as documented, Denies fever(s) and Reports headache(s) Eyes Eyes: Denies blurry vision, Denies change in vision and Denies diplopia ENT Ears, Nose, Mouth, and Throat: Denies vertigo, Reports headache(s) and Denies sore throat Cardiovascular Cardiovascular: Denies chest pain, Denies lightheadedness and Denies dyspnea Respiratory Respiratory: Denies cough and Denies dyspnea Gastrointestinal Gastrointestinal: Denies abdominal pain, Denies nausea and Denies vomiting Genitourinary Genitourinary: Reports system reviewed and no additional complaints, except as documented Musculoskeletal Musculoskeletal: Reports system reviewed and no additional complaints, except as documented Integumentary/Breasts Skin/Breast: Reports system reviewed and no additional complaints, except as documented Neurologic Neurologic: Reports system reviewed and no additional complaints, except as documented, Reports as per HPI, Denies vertigo and Reports headache(s) Psychiatric Psychiatric: Reports system reviewed and no additional complaints, except as documented Hematologic/Lymphatic On Anticoagulants: No Allergic/Immunologic Allergic/Immunologic: Reports system reviewed and no additional complaints, except as documented Patient History Medical History Abnormal Pap smear of cervix (1991) Anxiety (2006) Chickenpox (1977) Chlamydia (1985) Chronic back pain (1994) Depression (2006) Endometriosis (1991) Fibroids (Unknown) Frequent UTI (Unknown) Genital warts (1991) Heavy menstrual period (1991) IBS (irritable bowel syndrome) (2007) Painful menstrual periods (1991) Surgical History Hx of tonsillectomy (1978) Hx of tubal ligation (1994) Family History Father Age: 73 Heart disease Hypertension High cholesterol Mother Mental health problem Grandfather Heart disease Hypertension Grandmother No problems noted. Grandfather No problems noted. Grandmother Cancer Social History Smoking Status: Current every day smoker alcohol intake: current Smoking Status: Current every day smoker alcohol intake frequency: 3 or more drinks per day Substance Use Type: does not use Exam Initial Vital Signs Initial Vital Signs: Vital Signs Temperature 98.8 F 09/13/21 21:18 Pulse Rate 76 09/13/21 21:18 Respiratory Rate 16 09/13/21 21:18 Blood Pressure 167/92 H 09/13/21 21:18 Pulse Oximetry 97 09/13/21 21:18 Oxygen Delivery Method 09/13/21 21:18 Const General: cooperative HENMT Head: normal to inspection and normocephalic Mouth: moist mucous membranes Eyes Pupils: PERRL EOM: EOM intact bilaterally Chest Chest: normal inspection of the chest Resp Effort & Inspection: normal respiratory effort Auscultation: clear to auscultation bilaterally Cardio Rate: regular rate Rhythm: regular rhythm GI Inspection: normal to inspection and non-distended Skin General: no rashes or lesions noted Neuro General: patient alert, patient awake, gait normal and moves all extremities Cranial Nerves: CN's II-XI intact bilaterally Cognition: normal cognition Speech: speech normal Gait: normal gait Motor: muscle tone normal throughout and strength 5/5 throughout Sensory Exam: other (Reports decreased sensation to light touch from her wrist or fingers of the) Coordination: [id number] test normal and [id number] test normal Extrem General: normal to inspection and capillary refill normal Psych Appearance: disheveled Affect: anxious affect Scores NIH Stroke Scale Level of Conciousness: Alert, keenly responsive Ask month/age: Answers both questions correctly. Open/close eyes, close hand: Performs both tasks correctly Best gaze horizontal: Normal Visual cheng: No visual loss Facial palsy: Normal symetrical movement Left arm drift: No drift for full 10 sec Right arm drift: No drift for full 10 sec Left leg drift: No drift for full 5 sec Right leg drift: No drift for full 5 sec Limb ataxia: Absent Sensory on face/arms/legs: Mild to moderate sensory loss, can tell touch Best language: No aphasia, normal Dysarthria: Normal Extinction or inattention: No abnormality Total NIH Stroke scale score: 1 Course Orders Ordered: ED Orders 09/13/21 21:22 Basic Metabolic Panel Stat Complete Blood Count AUTO DIFF Stat 09/13/21 21:28 CT head/brain wo con Stat Vital Signs Vital signs: Vital Signs - 8 hr 09/13/21 21:18 09/13/21 21:18 09/13/21 21:30 Temperature 98.8 F Pulse Rate 76 98 H 76 Respiratory Rate 16 23 Blood Pressure 167/92 H Pulse Oximetry 97 97 97 Oxygen Delivery Method Room Air 09/13/21 21:31 09/13/21 21:31 09/13/21 22:00 Temperature Pulse Rate 77 70 Respiratory Rate 22 18 Blood Pressure 143/93 H Pulse Oximetry 95 93 Oxygen Delivery Method MDM - Neuro Symptoms/Deficit Lab Data Attestation: I reviewed the patient's lab results. Result diagrams: 09/13/21 21:22 09/13/21 21:22 Labs: Lab Results 09/13/21 09/13/21 Range/Units 21:22 21:22 WBC 9.5 (4.5-11.0) X10^3/uL RBC 4.25 (4.0-5.2) X10^6/uL Hgb 14.4 (12.0-16.0) g/dL Hct 41.4 (36-46) % MCV 97.5 (80-100) fL MCH 33.8 (26-34) PG MCHC 34.7 (30-36) % RDW 13.5 (11.6-14.8) % Plt Count 236 (150-400) X10^3/uL Neut % (Auto) 45.9 L (50-75) % Lymph % (Auto) 44.1 H (25-40) % [place] % (Auto) 8.5 (3-14) % Eos % (Auto) 0.4 L (2-4) % Baso % (Auto) 1.1 (0-2) % Neut # (Auto) 4400 (4878-4350) /uL Lymph # (Auto) 4200 (1164-0317) /uL [place] # (Auto) 800 (0-900) /uL Eos # (Auto) 0 (0-450) /uL Baso # (Auto) 100 (0-100) /uL Sodium 139 (137-145) mmol/L Potassium 3.7 (3.4-5.1) mmol/L Chloride 105 (98-107) mmol/L Carbon Dioxide 21 L (22-32) mmol/L BUN 9 (7-17) mg/dL Creatinine 0.73 (0.52-1.04) mg/dL Estimated GFR > 60 (>60) mL/min BUN/Creatinine Ratio 12.3 (6-22) Glucose 100 (70-100) mg/dL Calcium 8.6 (8.4-10.2) mg/dL Imaging Data CT scan - head: Radiologist's Impression: [address] [address] [address] Scan Report Signed Patient: Ines Novoa MR#: [id number] : 1970 Acct:[id number] Age/Sex: 51 / F Date of Service: 09/13/21 Loc: ED Accession Number: [id number] ?? Procedure: CT head/brain wo con Ordering Provider: Zach Orozco D.O. PROCEDURE:? CT HEAD/BRAIN WO CON ? INDICATIONS:? headache and right hand numb ? TECHNIQUE:? Noncontrast 5 mm thick angled axial sections acquired from the foramen magnum to the vertex, with coronal and sagittal reformats.? For radiation dose reduction, the following was used:? automated exposure control, adjustment of mA and/or kV according to patient size.? ? COMPARISON:? None. ? FINDINGS:? Image quality:? Excellent.? ? CSF spaces:? Basal cisterns are patent.? No extra-axial fluid collections.? Ventricles are normal in size and shape.? ? Brain:? No intracranial hemorrhage, mass, or mass effect.? Ely-white matter interface appears preserved.? ? Skull and face:? Calvarium and visualized facial bones are intact, without suspicious lesions.? ? Sinuses:? Visualized sinuses and mastoids are clear.? ? IMPRESSION:? ? 1. No acute intracranial abnormality. ? ? Dictated by: Hermes Garcia M.D. on 09/13/2021 at 21:53 ? ? Approved by: Hermes Garcia M.D. on 09/13/2021 at 21:54? [facility] Narrative Medical decision making narrative: Patient states her headache resolved prior to coming to the ER. Is difficult for her to describe her symptoms other than stating that her right arm was not working appropriately. She is anti score of 1 for subjective decreased sensation to light touch from her wrist to her fingers of her right hand. She reports no sensation changes to the right forearm compared to the left or the right upper arm compared to the left. She is able to do finger to nose. Strength is equal bilateral. He did take her a longer time to squeeze my fingers with her right hand compared to her left but she was able to do it and it was equal. Head CT was unremarkable however prior to my re-evaluation of the patient and informing her of the results of the CT scan the patient decided that she wanted to leave the emergency department. I was unable to talk with the patient prior to discharge that she was not given the results of her head CT nor discharge instructions nor return precautions. Discharge Plan Departure Patient Disposition: Left Against Medical Advice Clinical Impression: Hand paresthesia Prescriptions: No Action oxycodone-acetaminophen [Percocet] 5-325 mg tablet 2 tab PO Q4-6H PRN (Reason: pain) Qty: 24 0RF naproxen 500 mg tablet 500 mg PO BID Qty: 60 0RF bupropion HCl 300 mg tablet extended release 24 hr 300 mg PO QAM Qty: 90 3RF dicyclomine 20 mg tablet 20 mg PO Q6H Qty: 120 0RF dicyclomine 20 mg tablet 20 mg PO QID PRN (Reason: spasms) Qty: 20 0RF oxycodone 5 mg tablet 5 mg PO Q4-6H PRN (Reason: pain) Qty: 10 0RF cyclobenzaprine 10 mg tablet 10 mg PO TID PRN (Reason: muscle spasm) Qty: 14 0RF Referrals: Apple Summers MD [Primary Care Provider] - Stand Alone Forms: Against Medical Advice
--- NOTE | 2021-09-13 21:28 | DI.CT.S_ITS ---
PROCEDURE: CT HEAD/BRAIN WO CON INDICATIONS: headache and right hand numb TECHNIQUE: Noncontrast 5 mm thick angled axial sections acquired from the foramen magnum to the vertex, with coronal and sagittal reformats. For radiation dose reduction, the following was used: automated exposure control, adjustment of mA and/or kV according to patient size. COMPARISON: None. FINDINGS: Image quality: Excellent. CSF spaces: Basal cisterns are patent. No extra-axial fluid collections. Ventricles are normal in size and shape. Brain: No intracranial hemorrhage, mass, or mass effect. Ely-white matter interface appears preserved. Skull and face: Calvarium and visualized facial bones are intact, without suspicious lesions. Sinuses: Visualized sinuses and mastoids are clear. IMPRESSION: 1. No acute intracranial abnormality. Dictated by: Hermes Garcia M.D. on 09/13/2021 at 21:53 Approved by: Hermes Garcia M.D. on 09/13/2021 at 21:54
[2021-09-13 21:30] VITALS: PULSE 76; RESP 23; O2SAT 97
[2021-09-13 21:31] VITALS: BP 143/93; PULSE 77; RESP 22; O2SAT 95
[2021-09-13 21:38] LABS: Add Manual Diff / Slide Review NO; Basophils Absolute Auto 100 /uL (0-100); Basophils Percent Auto 1.1 % (0-2); Eosinophils Absolute Auto 0 /uL (0-450); Eosinophils Percent Auto 0.4 % (2-4); Hematocrit 41.4 % (36-46); Hemoglobin 14.4 g/dL (12.0-16.0); Lymphocytes Absolute Auto 4200 /uL (1100-4500); Lymphocytes Percent Auto 44.1 % (25-40); Mean Corpuscular HGB Conc 34.7 % (30-36); Mean Corpuscular Hemoglobin 33.8 PG (26-34); Mean Corpuscular Volume 97.5 fL (80-100); Monocytes Absolute Auto 800 /uL (0-900); Monocytes Percent Auto 8.5 % (3-14); Neutrophils Absolute Auto 4400 /uL (1500-7000); Neutrophils Percent Auto 45.9 % (50-75); Platelet Count 236 X10^3/uL (150-400); Red Blood Cell Count 4.25 X10^6/uL (4.0-5.2); Red Cell Distribution Width 13.5 % (11.6-14.8); White Blood Cell Count 9.5 X10^3/uL (4.5-11.0)
[2021-09-13 21:40] LABS: BUN Creatinine Ratio 12.3 (6-22); Blood Urea Nitrogen 9 mg/dL (7-17); Calcium 8.6 mg/dL (8.4-10.2); Carbon Dioxide 21 mmol/L (22-32); Chloride 105 mmol/L (98-107); Estimated Glomerular Filt Rate > 60 mL/min (>60); Glucose 100 mg/dL (70-100); HEMOLYSIS < 15 (0-50); Potassium 3.7 mmol/L (3.4-5.1); Sodium 139 mmol/L (137-145)
[2021-09-13 22:00] VITALS: PULSE 70; RESP 18; O2SAT 93
--- NOTE | 2021-09-13 22:44 | PC.NURSE ---
Pt left the ER without notifying staff. This RN attempted to walk after pt as she left the ER, but pt did not turn back. Pt had taken her own IV out and left it in her room. Provider had not spoken to pt regarding her results.
== END 2021-09-13 22:45 | disposition left against medical advice (07) ==
PROVIDERS: Emergency Provider Emergency Medicine; PCP Family Medicine
DX: R20.2 Paresthesia of skin (principal); R51.9 Headache, unspecified
CPT/HCPCS: 36415; 70450; 80048; 85025; 99283; 99284

== ENCOUNTER 2022-03-13 21:19 | Emergency (ER) | payer OTHER, MEDICAID, SELFPAY ==
[2022-03-13 21:25] VITALS: BP 112/72; PULSE 90; RESP 18; TEMP 36.6; O2SAT 97
--- NOTE | 2022-03-13 21:51 | DI.RAD.S_ITS ---
PROCEDURE: XR ACUTE ABDOMEN SERIES INDICATIONS: abdominal pain, decreased BM TECHNIQUE: One view chest and two views of the abdomen were acquired. COMPARISON: None. FINDINGS: Surgical changes and devices: None. Chest: Lungs are clear. Heart size is normal. No pleural effusions. No pneumoperitoneum. Abdomen: Bowel gas pattern appears within normal limits. No suspicious calcifications. An IUD and bilateral metallic clips are demonstrated in the uterus as well as Essure devices. Bones: No suspicious bony lesions. IMPRESSION: 1. No evidence of pneumoperitoneum. Dictated by: Hermes Garcia M.D. on 03/13/2022 at 23:23 Approved by: Hermes Garcia M.D. on 03/13/2022 at 23:27
--- NOTE | 2022-03-13 21:55 | PC.NURSE ---
Ambulatory to xray with steady gait
--- NOTE | 2022-03-13 22:08 | PC.NURSE ---
Returns to the room from radiology - ambulatory with steady gait
--- NOTE | 2022-03-14 06:14 | ED.ABDPAIN ---
HPI - Abdominal Pain General Chief Complaint: Abdominal Pain Stated Complaint: abd pain Time Seen by Provider: 03/13/22 21:21 Source: patient Mode of arrival: Ambulatory History of Present Illness HPI narrative: 51F smoker presents with a chief complaint abdominal pain and decreased bowel movements over the past few days. She states that a few weeks ago she had a laparoscopic surgery at an outside facility to help prepare a rectocele and has been taking pain medications. She denies nausea or vomiting. She is had no fever or chills. She states her pain is worse when she moves and improves with rest. She denies dysuria, frequency or urgency but does have a difficult time urinating. She denies runny nose, sore throat or cough. She has no chest pain or shortness of breath. Related Data Previous Rx's Medication Instructions Recorded naproxen 500 mg tablet 500 mg PO BID #60 tabs 04/13/18 oxycodone-acetaminophen 5 mg-325 2 tab PO Q4-6H PRN pain #24 tabs 04/13/18 mg tablet (Percocet) bupropion HCl 300 mg 24 hr tablet, 300 mg PO QAM #90 tabs 09/06/18 extended release dicyclomine 20 mg tablet 20 mg PO Q6H #120 tabs 02/03/19 dicyclomine 20 mg tablet 20 mg PO QID PRN spasms #20 tabs 02/17/21 cyclobenzaprine 10 mg tablet 10 mg PO TID PRN muscle spasm #14 02/18/21 tabs oxycodone 5 mg tablet 5 mg PO Q4-6H PRN pain #10 tabs 02/18/21 Allergies Allergy/AdvReac Type Severity Reaction Status Date / Time meperidine [From Demerol] Allergy Severe paralysis Verified 04/13/18 09:11 Penicillins [PENICILLINS] Allergy Unknown Verified 04/13/18 09:11 amoxicillin Allergy Verified 09/13/21 21:18 Review of Systems Review of Systems Narrative: GENERAL: Denies chills, fatigue, malaise, fever, sweats. HEENT: Denies sinus pain, ear pain, sore throat, difficulty swallowing, dizziness. RESPIRATORY: Denies dyspnea, cough, wheezing, hemoptysis, sputum. CARDIOVASCULAR: Denies chest pain, palpitations, orthopnea, edema, GASTROINTESTINAL: See HPI : See HPI MUSCULOSKELETAL: denies weakness, joint pain, or bony pain SKIN: Denies rash, skin lesions, or other NEUROLOGIC: Denies weakness, headache, numbness, change in speech, confusion, seizures, incoordination. PSYCHIATRIC: No concerning psychosocial issues. 12 point review of systems is negative except for those stated above Patient History Medical History Abnormal Pap smear of cervix (1991) Anxiety (2006) Chickenpox (1977) Chlamydia (1985) Chronic back pain (1994) Depression (2006) Endometriosis (1991) Fibroids (Unknown) Frequent UTI (Unknown) Genital warts (1991) Heavy menstrual period (1991) IBS (irritable bowel syndrome) (2007) Painful menstrual periods (1991) Surgical History Hx of tonsillectomy (1978) Hx of tubal ligation (1994) Family History Father Age: 74 Heart disease Hypertension High cholesterol Mother Mental health problem Grandfather Heart disease Hypertension Grandmother No problems noted. Grandfather No problems noted. Grandmother Cancer Social History Smoking Status: Current every day smoker alcohol intake: current Smoking Status: Current every day smoker alcohol intake frequency: 3 or more drinks per day Substance Use Type: does not use Exam Narrative Exam Narrative: GENERAL: 51] year old patient appears stated age. Well-developed patient, in mild distress. HEAD: Atraumatic. Normocephalic. EYES: Pupils equal round and reactive. Extraocular motions intact. No scleral icterus. No injection or drainage. ENT: Nose without bleeding, purulent drainage. Throat without erythema, tonsillar hypertrophy or exudate. Airway patent. NECK: Trachea midline. Non tender CARDIOVASCULAR: Regular rate and rhythm without murmurs, gallops, or rubs. RESPIRATORY: Clear to auscultation. Breath sounds equal bilaterally. No wheezes, rales, or rhonchi. GASTROINTESTINAL: Abdomen soft, moderate generalized tenderness, nondistended. Bowel sounds present in all 4 quadrants. Incisions are clean, dry and intact EXTREMITIES: No edema or joint tenderness. BACK: Nontender without deformity or crepitance. No flank tenderness. NEURO: AOx3. SKIN: No rash or erythema of visible areas Initial Vital Signs Initial Vital Signs: Vital Signs Temperature 98 F 03/13/22 21:25 Pulse Rate 90 03/13/22 21:25 Respiratory Rate 18 03/13/22 21:25 Blood Pressure 112/72 03/13/22 21:25 Pulse Oximetry 97 03/13/22 21:25 Oxygen Delivery Method 03/13/22 21:25 Course Course Course Narrative: Bedside bladder scan notes about 150 cc of urine. Orders Ordered: ED Orders 03/13/22 21:51 XR acute abdomen series Stat MDM - Abdominal Pain Imaging Data Abdominal x-ray: Radiologist's Impression: Close Chest/Abdomen X-ray (Signed) Hermes Garcia - 03/13/[address] (Signed) Hermes Garcia - 09/13/21 Lumbar Spine X-Ray (Signed) Angelo Pina - 08/16/20 Pelvis Ultrasound (Signed) Tanja Santiago - 01/21/18 Pelvis Ultrasound (Signed) Tanja Santiago - 09/17/17 Mammogram Screening (Signed) [place] - 09/11/17 [place] [address] XRay Report Signed Patient: Ines Novoa MR#: [id number] : 1970 Acct:[id number] Age/Sex: 51 / F Date of Service: 03/13/22 Loc: ED Accession Number: [id number] ?? Procedure: XR acute abdomen series Ordering Provider: Luis Enrique Rodriguez D.O. PROCEDURE:? XR ACUTE ABDOMEN SERIES ? INDICATIONS:? abdominal pain, decreased BM ? TECHNIQUE:? One view chest and two views of the abdomen were acquired.? ? COMPARISON:? None. ? FINDINGS:? ? Surgical changes and devices:? None.? ? Chest:? Lungs are clear.? Heart size is normal.? No pleural effusions.? No pneumoperitoneum.? ? Abdomen:? Bowel gas pattern appears within normal limits.? No suspicious calcifications.? An IUD and bilateral metallic clips are demonstrated in the uterus as well as Essure devices. ? Bones:? No suspicious bony lesions.? ? IMPRESSION:? ? 1. No evidence of pneumoperitoneum. ? ? Dictated by: Hermes Garcia M.D. on 03/13/2022 at 23:23 ? ? Approved by: Hermes Garcia M.D. on 03/13/2022 at 23:27 ? [facility] Narrative Medical decision making narrative: 51-year-old female smoker with relatively recent abdominal surgery presents with generalized abdominal pain and decreased bowel movements. Acute abdominal series is reassuring and demonstrates no sign of perforation or obstruction. Patient refused any further evaluation or workup and left against medical advice. She was awake, alert and oriented, speaking clearly without slurring and able to walk a straight line, she clearly demonstrating capacity to make her own decisions. She understands the risks and benefit of leaving prior to our evaluation which could include but is not limited to severe intra-abdominal problems such as problem with her surgery, significant infection, sepsis which could result in permanent disability or even . She understands that she may return immediately for any change and needs not fear any repercussions. She plans to follow up with her doctors and will return for worsening symptoms Discharge Plan Departure Patient Disposition: Left Against Medical Advice Clinical Impression: Patient left care setting after refusal of treatment Prescriptions: No Action oxycodone-acetaminophen [Percocet] 5-325 mg tablet 2 tab PO Q4-6H PRN (Reason: pain) Qty: 24 0RF naproxen 500 mg tablet 500 mg PO BID Qty: 60 0RF bupropion HCl 300 mg tablet extended release 24 hr 300 mg PO QAM Qty: 90 3RF dicyclomine 20 mg tablet 20 mg PO Q6H Qty: 120 0RF dicyclomine 20 mg tablet 20 mg PO QID PRN (Reason: spasms) Qty: 20 0RF oxycodone 5 mg tablet 5 mg PO Q4-6H PRN (Reason: pain) Qty: 10 0RF cyclobenzaprine 10 mg tablet 10 mg PO TID PRN (Reason: muscle spasm) Qty: 14 0RF Stand Alone Forms: Against Medical Advice
== END 2022-03-13 23:25 | disposition left against medical advice (07) ==
PROVIDERS: Emergency Provider Emergency Medicine; PCP Family Medicine
DX: R10.84 Generalized abdominal pain (principal); Z53.29 Procedure and treatment not carried out because of patient's decision for other reasons
CPT/HCPCS: 51798; 74022; 99283

== ENCOUNTER → 2022-06-10 16:02 | Outpatient (CLI) | payer OTHER, MEDICAID, SELFPAY ==
--- NOTE | 2022-06-10 16:05 | DI.RAD.S_ITS ---
PROCEDURE: XR LUMBAR SPINE 2-3V INDICATIONS: Lumbar pain TECHNIQUE: 3 views of the lumbar spine were acquired. COMPARISON: [facility], , XR LUMBAR SPINE 2-3V, 08/16/2020, 11:01. FINDINGS: Mild lumbar levoscoliosis centered at L3. No listhesis. Vertebral body heights maintained. Diffuse mild to moderate degenerative changes in the lumbar spine from L2-L3 through L5-S1 characterized by disc height loss and degenerative endplate change. Moderate to severe facet hypertrophy resulting in at least [id number] neural foraminal narrowing from L3-L4 through L5-S1. IMPRESSION: At least moderate lumbar spine degenerative changes from L2-L3 through L5-S1. Findings similar to 08/16/2020 exam. MRI could be considered. Dictated by: Armin Chaney M.D. on 06/11/2022 at 11:28 Approved by: Armin Chaney M.D. on 06/11/2022 at 11:29
== END ==
PROVIDERS: PCP Family Medicine; Referring Provider Family Medicine; Visit Provider Family Medicine
DX: M47.816 Spondylosis without myelopathy or radiculopathy, lumbar region (principal); M47.817 Spondylosis without myelopathy or radiculopathy, lumbosacral region; M54.50 Low back pain, unspecified
CPT/HCPCS: 72100

== ENCOUNTER → 2023-02-12 11:26 | Outpatient (CLI) | payer OTHER, MEDICAID, SELFPAY ==
--- NOTE | 2023-02-12 11:27 | DI.MG.S_ITS ---
BILATERAL DIGITAL SCREENING MAMMOGRAM 3D/2D WITH CAD: 02/12/2023 CLINICAL: Routine screening. Family history of breast cancer. Comparison is made to exam dated: 09/11/2017 mammogram - . There are scattered areas of fibroglandular density in both breasts (category b / 25%-50% glandular tissue). Current study was also evaluated with a Computer Aided Detection (CAD) system. No significant masses, calcifications, or other findings are seen in either breast. There has been no significant interval change. IMPRESSION: NEGATIVE There is no mammographic evidence of malignancy. A 1 year screening mammogram is recommended. Based on the Tyrer Cuzick model (a risk assessment model) the patient's lifetime risk is 15.7% and her 10 year risk is 4.0%. According to the ACR, ACS, and NCCN guidelines, an annual breast MRI exam along with mammogram is recommended if the patient's lifetime risk is 20% or greater. This exam was interpreted at Station ID: [id number]. NOTE: For mammograms, a report in lay terms will be sent to the patient. Approximately 15% of breast malignancies will not be visualized mammographically. In the management of a palpable breast mass, a negative mammogram must not discourage biopsy of a clinically suspicious lesion. Electronically Signed By: Polly [email or web address]/cat:02/12/2023 17:00:43 letter sent: Normal Exam ACR BI-RADS Category 1: Negative [id number]
== END ==
PROVIDERS: PCP Family Medicine; Referring Provider Family Medicine; Visit Provider Family Medicine
DX: Z12.31 Encounter for screening mammogram for malignant neoplasm of breast (principal); Z80.3 Family history of malignant neoplasm of breast
CPT/HCPCS: 77063; 77067

== ENCOUNTER 2023-06-17 17:28 | Emergency (ER) | payer OTHER, MEDICAID, SELFPAY ==
[2023-06-17 17:34] VITALS: BP 111/70; PULSE 70; RESP 20; TEMP 36.1; O2SAT 96; BMI 25.8
--- NOTE | 2023-06-17 18:15 | ED_ITS ---
HPI - Female Genitourinary General Chief complaint: Urogenital-Female Stated complaint: thinks she has a uti Time Seen by Provider: 06/17/23 17:53 Source: patient Mode of arrival: Ambulatory History of Present Illness HPI Narrative: 53-year-old female presents for 1 week of urinary frequency, cloudy urine. Patient thinks that she may have a urinary tract infection. She states that she has felt ?lousy? over the last 2-3 days, but today she felt very fatigued and wanted to spend all day in bed. Her symptoms today caused her to come to the emergency department. She denies back pain, fevers, chills, nausea, vomiting. Denies recent antibiotic use or recent UTI. Related Data Previous Rx's Medication Instructions Recorded naproxen 500 mg tablet 500 mg PO BID #60 tabs 04/13/18 oxycodone-acetaminophen 5 mg-325 2 tab PO Q4-6H PRN pain #24 tabs 04/13/18 mg tablet (Percocet) bupropion HCl 300 mg 24 hr tablet, 300 mg PO QAM #90 tabs 09/06/18 extended release dicyclomine 20 mg tablet 20 mg PO Q6H #120 tabs 02/03/19 dicyclomine 20 mg tablet 20 mg PO QID PRN spasms #20 tabs 02/17/21 cyclobenzaprine 10 mg tablet 10 mg PO TID PRN muscle spasm #14 02/18/21 tabs oxycodone 5 mg tablet 5 mg PO Q4-6H PRN pain #10 tabs 02/18/21 cephalexin 500 mg capsule 500 mg PO Q12H #14 caps 06/17/23 Allergies Allergy/AdvReac Type Severity Reaction Status Date / Time meperidine [From Demerol] Allergy Severe paralysis Verified 04/13/18 09:11 Penicillins [PENICILLINS] Allergy Unknown Verified 04/13/18 09:11 amoxicillin Allergy Verified 09/13/21 21:18 Review of Systems Review of Systems Narrative: See HPI Patient History Medical History Anxiety (2006) Chickenpox (1977) Chronic back pain (1994) Fibroids (Unknown) Heavy menstrual period (1991) Painful menstrual periods (1991) Endometriosis (1991) Genital warts (1992) Chlamydia (1985) Abnormal Pap smear of cervix (1991) Frequent UTI (Unknown) IBS (irritable bowel syndrome) (2007) Depression (2007) Surgical History Hx of tubal ligation (1994) Hx of tonsillectomy (1978) Family History Father Age: 74 Heart disease Hypertension High cholesterol Mother Mental health problem Grandfather Heart disease Hypertension Grandmother No problems noted. Grandfather No problems noted. Grandmother Cancer tobacco type: cigarettes alcohol intake frequency: 3 or more drinks per day Alcohol type: beer Substance Use Type: does not use Exam Initial Vital Signs Initial Vital Signs: Vital Signs Temperature 97.0 F L 06/17/23 17:34 Pulse Rate 70 06/17/23 17:34 Respiratory Rate 20 06/17/23 17:34 Blood Pressure 111/70 06/17/23 17:34 Pulse Oximetry 96 06/17/23 17:34 Oxygen Delivery Method Room Air 06/17/23 17:34 Const: Awake, alert, no acute distress, nontoxic appearing Cardiac: regular rate, regular rhythm RESP: unlabored, clear bilaterally, no wheezing GI: Soft, nontender, nondistended, no rebound, no guarding MSK back: No midline tenderness, no CVA tenderness bilaterally Skin: Warm, Dry, intact, no rashes Neuro: AO x3, CN II-XII grossly intact, moves all extremities Course Orders Ordered: ED Orders 06/17/23 17:50 Urine Culture Stat Urine Microscopic Stat Discontinued Medications Ondansetron HCl (Ondansetron 4 Mg/2 Ml Inj) 4 mg IV NOW PRN PRN Reason: Nausea And Vomiting Ondansetron HCl (Ondansetron 4 Mg Odt) 4 mg SL NOW PRN PRN Reason: Nausea And Vomiting Vital Signs Vital signs: Vital Signs - 8 hr 06/17/23 17:34 06/17/23 18:18 06/17/23 18:18 Temperature 97.0 F L Pulse Rate 70 75 Respiratory Rate 20 Blood Pressure 111/70 103/68 Pulse Oximetry 96 99 Oxygen Delivery Method Room Air 06/17/23 18:19 06/17/23 18:19 Temperature Pulse Rate 72 Respiratory Rate Blood Pressure 115/69 Pulse Oximetry 98 Oxygen Delivery Method MDM - Female Genitourinary Lab Data Labs: Lab Results 06/17/23 Range/Units 17:50 Urine RBC 0-1/hpf (0-5/HPF) Urine WBC 1-5/hpf (0-5/HPF) Ur Squamous Epith Cells 0-1 /hpf (0-5/HPF) Urine Bacteria Many (>30) H (None) Ur Culture Indicated? Specimen cultured Vol Urine Centrifuged 10ml (spun) Urine Dip Bedside Urine Glucose Negative Bedside Urine Bilirubin - Negative Bedside Urine Ketone - Negative Urine Specific Morrison 1.010 Bedside Urine Occult Blood + Bedside Urine pH 7.5 Bedside Urine Protein - Negative Bedside Urine Urobilinogen - Negative Bedside Urine Nitrite + Positive Bedside Urine Leukocytes - Negative Esterase MDM Narrative Medical decision making narrative: Nontoxic patient presenting for symptoms consistent with urinary tract infection. Physical exam is benign, there is no CVA tenderness, vitals are normal, no concern for pyelonephritis or sepsis at this time. Patient advised of urinalysis results, antibiotics sent to pharmacy of choice. ED return precautions discussed at bedside. Patient expressed understanding of the plan and is in agreement at this time. All questions answered at the time of discharge. Discharge Plan Departure Patient Disposition: Home Clinical Impression: Urinary tract infection Instructions: DI for Urinary Tract Infection (UTI) Activity Restrictions/Additional Instructions: Drink plenty of fluids. When you use the restroom wipe from front to back to prevent introducing infection. If you have sexual intercourse urinate immediately afterwards Prescriptions: New cephalexin 500 mg capsule 500 mg PO Q12H Qty: 14 0RF No Action oxycodone-acetaminophen [Percocet] 5-325 mg tablet 2 tab PO Q4-6H PRN (Reason: pain) Qty: 24 0RF naproxen 500 mg tablet 500 mg PO BID Qty: 60 0RF bupropion HCl 300 mg tablet extended release 24 hr 300 mg PO QAM Qty: 90 3RF dicyclomine 20 mg tablet 20 mg PO Q6H Qty: 120 0RF dicyclomine 20 mg tablet 20 mg PO QID PRN (Reason: spasms) Qty: 20 0RF oxycodone 5 mg tablet 5 mg PO Q4-6H PRN (Reason: pain) Qty: 10 0RF cyclobenzaprine 10 mg tablet 10 mg PO TID PRN (Reason: muscle spasm) Qty: 14 0RF Referrals: Stephenie Bear MD [Primary Care Provider] - Stand Alone Forms: Patient Portal/API
[2023-06-17 18:18] VITALS: BP 103/68; PULSE 75; O2SAT 99
[2023-06-17 18:18] LABS: Bacteria Urine Many (>30); Culture Indicated Urine Specimen Cultured; RBC Urine 0-1/HPF (0-5/HPF); Squamous Epithelial Cell Urine 0-1 /HPF (0-5/HPF); Urine Volume 10mL (spun); WBC Urine 1-5/HPF (0-5/HPF)
[2023-06-17 18:19] VITALS: BP 115/69; PULSE 72; O2SAT 98
== END 2023-06-17 18:35 | disposition home or self-care (01) ==
PROVIDERS: Emergency Medicine; Emergency Provider Emergency Medicine; PCP Family Medicine
DX: N39.0 Urinary tract infection, site not specified (principal)
CPT/HCPCS: 81003; 81015; 87077; 87086; 87186; 99282

== ENCOUNTER 2023-06-30 20:36 | Emergency (ER) | payer OTHER, MEDICAID, SELFPAY ==
[2023-06-30] VITALS (9 sets, daily range): BP systolic 91–163; BP diastolic 59–66; PULSE 68–80; RESP 19; TEMP 36.3–36.9; O2SAT 96–99; BMI 23.6
--- NOTE | 2023-06-30 20:58 | DI.RAD.S_ITS ---
PROCEDURE: XR CHEST 1V INDICATIONS: SOB TECHNIQUE: One view of the chest was acquired. COMPARISON: None. FINDINGS: Surgical changes and devices: None. Lungs and pleura: Lungs are clear. No pleural effusions or pneumothorax. Mediastinum: Mediastinal contours appear normal. Heart size is normal. Bones and chest wall: No suspicious bony lesions. Overlying soft tissues appear unremarkable. IMPRESSION: No acute cardiopulmonary abnormality is seen. Dictated by: Desmond Herbert M.D. on 06/30/2023 at 21:44 Approved by: Desmond Herbert M.D. on 06/30/2023 at 21:46
--- NOTE | 2023-06-30 20:59 | PC.NURSE ---
Pt states she thinks she just needs a new prescription for antibiotics. Pt denied any chest pain, abd pain, denied any fevers. Does endorse general malaise and fatigue.
[2023-06-30 21:46] LABS: Influenza A - CEPHEID Flu A NEGATIVE (NEGATIVE); Influenza B - CEPHEID Flu B NEGATIVE (NEGATIVE); Respiratory Syncytial Virus Negative (Negative)
[2023-06-30 21:48] LABS: COVID-19 CEPHEID 4-PLEX PCR Negative (Negative)
--- NOTE | 2023-06-30 22:03 | ED.GENADULT ---
HPI - General Adult General Chief complaint: Shortness of Breath/Dyspnea Stated complaint: difficulty breathing, sick Time Seen by Provider: 06/30/23 20:53 Source: patient Mode of arrival: Ambulatory History of Present Illness HPI narrative: patient is a 53-year-old female. She does smoke. No diagnose lung issues. Was seen here in the emergency department several weeks ago. Was diagnosed with a urinary tract infection. She was having UTI symptoms at the time. She completed the course of antibiotics. States those symptoms have improved however she still feels poorly. Having quite a bit of malaise. No chest pain. She is having difficulty breathing specifically with exertion. No cough. No fevers. She did see her primary care provider. She would labs drawn. She was told that everything was low she does not know specifically what the lab values were. She has not followed up with her primary doctor regarding this. She denies abdominal pain. No lower extremity swelling. States she has not short of breath when she lays down at night. She has no chest pain with exertion. Related Data Home Medications Medication Instructions Recorded Confirmed dicyclomine 20 mg tablet 20 mg PO BID 06/30/23 06/30/23 losartan 50 mg-hydrochlorothiazide 1 tab PO DAILY 06/30/23 06/30/23 12.5 mg tablet Allergies Allergy/AdvReac Type Severity Reaction Status Date / Time meperidine [From Demerol] Allergy Severe paralysis Verified 06/30/23 20:39 Penicillins [PENICILLINS] AdvReac Unknown Hives Verified 06/30/23 20:39 amoxicillin AdvReac Hives Verified 06/30/23 20:39 Review of Systems Constitutional Constitutional: Reports system reviewed and no additional complaints, except as documented Cardiovascular Cardiovascular: Reports system reviewed and no additional complaints, except as documented Respiratory Respiratory: Reports system reviewed and no additional complaints, except as documented Gastrointestinal Gastrointestinal: Reports system reviewed and no additional complaints, except as documented Integumentary/Breasts Skin/Breast: Reports system reviewed and no additional complaints, except as documented Patient History Medical History Anxiety (2006) Chickenpox (1977) Chronic back pain (1994) Fibroids (Unknown) Heavy menstrual period (1991) Painful menstrual periods (1991) Endometriosis (1991) Genital warts (1991) Chlamydia (1985) Abnormal Pap smear of cervix (1991) Frequent UTI (Unknown) IBS (irritable bowel syndrome) (2007) Depression (2007) Surgical History Hx of tubal ligation (1994) Hx of tonsillectomy (1978) Family History Father Age: 74 Heart disease Hypertension High cholesterol Mother Mental health problem Grandfather Heart disease Hypertension Grandmother No problems noted. Grandfather No problems noted. Grandmother Cancer Social History Smoking Status: Current every day smoker alcohol intake: current Smoking Status: Current every day smoker tobacco type: cigarettes alcohol intake frequency: 3 or more drinks per day Alcohol type: beer Substance Use Type: does not use Exam Initial Vital Signs Initial Vital Signs: Vital Signs Temperature 97.3 F L 06/30/23 20:39 Pulse Rate 80 06/30/23 20:39 Respiratory Rate 19 06/30/23 20:39 Blood Pressure 97/59 L 06/30/23 20:39 Pulse Oximetry 97 06/30/23 20:39 Oxygen Delivery Method Room Air 06/30/23 20:39 HENMT Head: normal to inspection and normocephalic Resp Effort & Inspection: normal respiratory effort Auscultation: clear to auscultation bilaterally Cardio Rate: regular rate Rhythm: regular rhythm GI Inspection: normal to inspection Skin General: no rashes or lesions noted Neuro General: patient alert, patient awake and moves all extremities Extrem General: No edema Course Orders Ordered: ED Orders 06/30/23 20:58 XR chest 1V Stat EKG-12 Lead Stat 06/30/23 21:04 Covid-19 + FLU A/B + RSV - PCR Stat 06/30/23 22:11 Complete Blood Count AUTO DIFF Stat Comprehensive Metabolic Panel Stat D Dimer Stat Lipase Stat NT-proBNP (BNP-Adult 18+) Stat Troponin & CK Cardiac Panel Stat Vital Signs Vital signs: Vital Signs - 8 hr 06/30/23 20:39 06/30/23 20:52 06/30/23 20:54 Temperature 97.3 F L 98.4 F Pulse Rate 80 68 Respiratory Rate 19 Blood Pressure 97/59 L Pulse Oximetry 97 98 99 Oxygen Delivery Method Room Air Room Air 06/30/23 20:55 06/30/23 22:10 06/30/23 22:16 Temperature Pulse Rate 70 Respiratory Rate Blood Pressure 91/60 163/63 H Pulse Oximetry 98 Oxygen Delivery Method Room Air 06/30/23 22:16 06/30/23 22:34 06/30/23 23:32 Temperature 98.2 F Pulse Rate 68 Respiratory Rate Blood Pressure Pulse Oximetry 97 97 Oxygen Delivery Method Room Air Room Air 06/30/23 23:33 06/30/23 23:33 Temperature Pulse Rate 73 Respiratory Rate Blood Pressure 104/66 Pulse Oximetry 96 Oxygen Delivery Method Room Air Medical Decision Making Lab Data Lab results reviewed: Yes I reviewed the patient's lab results. 06/30/23 22:11 06/30/23 22:11 Labs: Lab Results 06/30/23 06/30/23 Range/Units 21:04 22:11 WBC 10.0 (4.5-11.0) X10^3/uL RBC 4.00 (4.0-5.2) X10^6/uL Hgb 13.7 (12.0-16.0) g/dL Hct 39.5 (36-46) % MCV 98.6 (80-100) fL MCH 34.2 H (26-34) PG MCHC 34.7 (30-36) % RDW 14.2 (11.6-14.8) % Plt Count 276 (150-400) X10^3/uL Neut % (Auto) 46.4 L (50-75) % Lymph % (Auto) 40.2 H (25-40) % [place] % (Auto) 11.8 (3-14) % Eos % (Auto) 0.2 L (2-4) % Baso % (Auto) 1.4 (0-2) % Neut # (Auto) 4600 (1741-1618) /uL Lymph # (Auto) 4000 (8403-4768) /uL [place] # (Auto) 1200 H (0-900) /uL Eos # (Auto) 0 (0-450) /uL Baso # (Auto) 100 (0-100) /uL D-Dimer 367 (<500) ng/ml Sodium 139 (137-145) mmol/L Potassium 3.2 L (3.4-5.1) mmol/L Chloride 101 (98-107) mmol/L Carbon Dioxide 31 (22-32) mmol/L BUN 13 (7-17) mg/dL Creatinine 1.18 H (0.52-1.04) mg/dL Estimated GFR 56 L (>60) mL/min BUN/Creatinine Ratio 11.0 (6-22) Glucose 98 (70-100) mg/dL Calcium 8.9 (8.4-10.2) mg/dL Total Bilirubin 0.6 (0.2-1.3) mg/dL AST 30 (14-36) IU/L ALT 22 (<35) IU/L Alkaline Phosphatase 108 (38-126) U/L Total Creatine Kinase 105 (30-135) U/L Troponin I < 0.012 (0.01-0.034) ng/mL NT-Pro-B Natriuret Pep 81 (<125) pg/mL Total Protein 7.2 (6.3-8.2) g/dL Albumin 4.1 (3.5-5.0) g/dL Globulin 3.1 (1.7-4.1) g/dL Albumin/Globulin Ratio 1.3 (1.0-2.8) Lipase 86 (23-300) U/L SARS-CoV-2 (PCR) Negative (Negative) Influenza A (RT-PCR) Flu a negative (NEGATIVE) Influenza B (RT-PCR) Flu b negative (NEGATIVE) RSV (PCR) Negative (Negative) Imaging Data Chest x-ray: Radiologist's Impression: PROCEDURE: XR CHEST 1V INDICATIONS: SOB TECHNIQUE: One view of the chest was acquired. COMPARISON: None. FINDINGS: Surgical changes and devices: None. Lungs and pleura: Lungs are clear. No pleural effusions or pneumothorax. Mediastinum: Mediastinal contours appear normal. Heart size is normal. Bones and chest wall: No suspicious bony lesions. Overlying soft tissues appear unremarkable. IMPRESSION: No acute cardiopulmonary abnormality is seen. ECG Data Attestation: I personally reviewed and interpreted this ECG as follows: Interpretation: sinus rhythm Ventricular rate is 71 Normal axis Normal QRS Nonspecific ST T wave changes MDM Narrative Medical decision making narrative: Patient is having dyspnea on exertion but is not in heart failure today. BNP is normal. EKG is unremarkable. Chest x-ray is unremarkable. No signs of infection. D-dimer is negative. Low suspicion for ACS. There was no indication for antibiotics. She was no lower extremity swelling. I had a extensive discussion with her regarding her symptoms. She understands that there was no definitive diagnosis made today although it does not appear to be anything emergent based on her workup today. We discussed specific return precautions. Will have her contact her primary doctor for follow-up as she may need further evaluation to include pulmonary function tests. She was given return precautions. She expressed understanding and agreement. Discharge Plan Departure Patient Disposition: Home Clinical Impression: Shortness of Breath Instructions: DI for Shortness of Breath, How to Manage Shortness of Breath Activity Restrictions/Additional Instructions: I do recommend that you continue to take all of your medications as directed. Contact your primary care doctor to discuss further evaluation to include potentially having pulmonary function tests. Return to the emergency department for new or worsening symptoms. Prescriptions: No Action losartan-hydrochlorothiazide 50-12.5 mg tablet 1 tab PO DAILY dicyclomine 20 mg tablet 20 mg PO BID Referrals: Stephenie Bear MD [Primary Care Provider] - Stand Alone Forms: Patient Portal/API
[2023-06-30 22:18] LABS: Add Manual Diff / Slide Review NO; Basophils Absolute Auto 100 /uL (0-100); Basophils Percent Auto 1.4 % (0-2); Eosinophils Absolute Auto 0 /uL (0-450); Eosinophils Percent Auto 0.2 % (2-4); Hematocrit 39.5 % (36-46); Hemoglobin 13.7 g/dL (12.0-16.0); Lymphocytes Absolute Auto 4000 /uL (1100-4500); Lymphocytes Percent Auto 40.2 % (25-40); Mean Corpuscular HGB Conc 34.7 % (30-36); Mean Corpuscular Hemoglobin 34.2 PG (26-34); Mean Corpuscular Volume 98.6 fL (80-100); Monocytes Absolute Auto 1200 /uL (0-900); Monocytes Percent Auto 11.8 % (3-14); Neutrophils Absolute Auto 4600 /uL (1500-7000); Neutrophils Percent Auto 46.4 % (50-75); Platelet Count 276 X10^3/uL (150-400); Red Cell Distribution Width 14.2 % (11.6-14.8)
[2023-06-30 22:30] LABS: HEMOLYSIS < 15 (0-50)
[2023-06-30 22:35] LABS: Alanine Aminotransferase 22 IU/L (<35); Albumin 4.1 g/dL (3.5-5.0); Albumin Globulin Ratio 1.3 (1.0-2.8); Alkaline Phosphatase 108 U/L (38-126); Aspartate Aminotransferase 30 IU/L (14-36); Bilirubin Total 0.6 mg/dL (0.2-1.3); Blood Urea Nitrogen 13 mg/dL (7-17); Calcium 8.9 mg/dL (8.4-10.2); Carbon Dioxide 31 mmol/L (22-32); Chloride 101 mmol/L (98-107); Creatine Kinase 105 U/L (30-135); Estimated Glomerular Filt Rate 56 mL/min (>60); Globulin 3.1 g/dL (1.7-4.1); Glucose 98 mg/dL (70-100); Lipase 86 U/L (23-300); Potassium 3.2 mmol/L (3.4-5.1); Sodium 139 mmol/L (137-145); Total Protein 7.2 g/dL (6.3-8.2)
[2023-06-30 22:45] LABS: NT-proBNP (BNP-Adult 18+) 81 pg/mL (<125)
[2023-06-30 22:46] LABS: D Dimer 367 ng/ml (<500)
[2023-06-30 22:49] LABS: Troponin I < 0.012 ng/mL (0.01-0.034)
== END 2023-06-30 23:40 | disposition home or self-care (01) ==
PROVIDERS: Emergency Provider Emergency Medicine; PCP Family Medicine
DX: R53.81 Other malaise (principal); R06.02 Shortness of breath
CPT/HCPCS: 0241U; 36415; 71045; 80053; 82550; 83690; 83880; 84484; 85025; 85379; 93005; 99283; 99284

== ENCOUNTER 2023-07-05 17:39 | Emergency (ER) | payer OTHER, MEDICAID, SELFPAY ==
[2023-07-05] VITALS (10 sets, daily range): BP systolic 99–147; BP diastolic 60–85; PULSE 70–103; RESP 14–20; TEMP 36.6; O2SAT 94–99; BMI 24.3
[2023-07-05 18:19] LABS: Add Manual Diff / Slide Review NO; Basophils Absolute Auto 100 /uL (0-100); Basophils Percent Auto 0.7 % (0-2); Eosinophils Absolute Auto 0 /uL (0-450); Eosinophils Percent Auto 0.1 % (2-4); Hematocrit 40.5 % (36-46); Hemoglobin 13.9 g/dL (12.0-16.0); Lymphocytes Absolute Auto 3700 /uL (1100-4500); Lymphocytes Percent Auto 33.9 % (25-40); Mean Corpuscular HGB Conc 34.2 % (30-36); Mean Corpuscular Hemoglobin 33.5 PG (26-34); Mean Corpuscular Volume 97.9 fL (80-100); Monocytes Absolute Auto 700 /uL (0-900); Monocytes Percent Auto 6.4 % (3-14); Neutrophils Absolute Auto 6400 /uL (1500-7000); Neutrophils Percent Auto 58.9 % (50-75); Platelet Count 249 X10^3/uL (150-400); Red Blood Cell Count 4.14 X10^6/uL (4.0-5.2); Red Cell Distribution Width 13.6 % (11.6-14.8); White Blood Cell Count 10.8 X10^3/uL (4.5-11.0)
[2023-07-05] MEDS: SODIUM CHLORIDE 0.9% 1,000 ML 1000 ML IV (18:23)
[2023-07-05 18:24] LABS: Alanine Aminotransferase 29 IU/L (<35); Albumin 4.1 g/dL (3.5-5.0); Albumin Globulin Ratio 1.4 (1.0-2.8); Alkaline Phosphatase 118 U/L (38-126); Aspartate Aminotransferase 53 IU/L (14-36); BUN Creatinine Ratio 15.5 (6-22); Bilirubin Total 0.7 mg/dL (0.2-1.3); Blood Urea Nitrogen 13 mg/dL (7-17); Calcium 8.6 mg/dL (8.4-10.2); Carbon Dioxide 27 mmol/L (22-32); Chloride 98 mmol/L (98-107); Estimated Glomerular Filt Rate > 60 mL/min (>60); Glucose 106 mg/dL (70-100); HEMOLYSIS < 15 (0-50); Lipase 80 U/L (23-300); Potassium 3.2 mmol/L (3.4-5.1); Sodium 136 mmol/L (137-145); Total Protein 7.1 g/dL (6.3-8.2)
[2023-07-05] MEDS: KETOROLAC 30 MG/ML VIAL 15 MG IV (18:25)
[2023-07-05] MEDS: ONDANSETRON 4 MG/2 ML INJ IV (18:26)
--- NOTE | 2023-07-05 19:17 | ED_ITS ---
HPI - Abdominal Pain General Chief Complaint: Abdominal Pain Stated Complaint: abd pain Time Seen by Provider: 07/05/23 18:15 Source: patient Mode of arrival: Ambulatory Limitations: no limitations History of Present Illness HPI narrative: This is a 53-year-old female, chronic tobacco abuse, hypertension history of IBS, prior rectal prolapse with surgery x3 who presents with concern/complaint of abdominal pain, rectal pain and recurrent prolapse. Patient states that it we will sort of go back inside after she has a bowel but has not increasingly painful. She states she has had surgery 3 times on the rectum for this. She follows with Dr. Higgins at [facility]. She states she had recently been ill with bronchitis and a UTI was slowly improving but still feeling unwell. She has had chronic diarrhea which is normal for her. She does describe a small amount of blood in her stool which she states is typical from hemorrhoids. She has been bloated increasingly distended and also had pain in her lower abdomen. She has had some nausea and vomiting intermittently over the last couple weeks. She states no fevers or chills. Her cough and cold symptoms have improved. She has had multiple colonoscopies in the past, tubal ligation had a device placed in her uterus for fibroid. She is on prescription medication for hypertension. Patient states she is allergies to penicillin, Demerol and sulfa. She does use tobacco daily, she does drink alcohol, no recreational drugs. Dr. Liriano is her primary care at the [facility]. She follows with Dr. Higgins at [facility] surgically and follows with gastroenterology. Related Data Home Medications Medication Instructions Recorded Confirmed dicyclomine 20 mg tablet 20 mg PO BID 06/30/23 06/30/23 losartan 50 mg-hydrochlorothiazide 1 tab PO DAILY 06/30/23 06/30/23 12.5 mg tablet Previous Rx's Medication Instructions Recorded ondansetron 4 mg disintegrating 4 mg PO Q6H PRN nausea and 07/05/23 tablet vomiting #10 tabs oxycodone-acetaminophen 5 mg-325 1 tab PO Q6H PRN pain #5 tabs 07/05/23 mg tablet (Percocet) Allergies Allergy/AdvReac Type Severity Reaction Status Date / Time meperidine [From Demerol] Allergy Severe paralysis Verified 06/30/23 20:39 Penicillins [PENICILLINS] AdvReac Unknown Hives Verified 06/30/23 20:39 amoxicillin AdvReac Hives Verified 06/30/23 20:39 Review of Systems Review of Systems ROS Unobtainable: All systems reviewed & are unremarkable except as noted in HPI and below Patient History Medical History (Updated 07/05/23 @ 20:52 by Lesly Dasilva DO) Anxiety (2006) Chickenpox (1977) Chronic back pain (1994) Fibroids (Unknown) Heavy menstrual period (1991) Painful menstrual periods (1991) Endometriosis (1991) Genital warts (1991) Chlamydia (1985) Abnormal Pap smear of cervix (1991) Frequent UTI (Unknown) IBS (irritable bowel syndrome) (2007) Depression (2006) Surgical History Hx of tubal ligation (1994) Hx of tonsillectomy (1978) Family History Father Age: 75 Heart disease Hypertension High cholesterol Mother Mental health problem Grandfather Heart disease Hypertension Grandmother No problems noted. Grandfather No problems noted. Grandmother Cancer Social History Smoking Status: Current every day smoker alcohol intake: current Smoking Status: Current every day smoker tobacco type: cigarettes alcohol intake frequency: 3 or more drinks per day Alcohol type: beer Substance Use Type: does not use Exam Narrative Exam Narrative: GENERAL: Alert and oriented x three, [id number] distress. HEENT: Head normocephalic, atraumatic, EOMI, pupils reactive, face symmetric, moist mucous membranes NECK: Supple, full range of motion CARDIOVASCULAR: Regular rate and rhythm without murmurs, rubs or gallops. RESPIRATORY: Breath sounds equal bilaterally, no wheezes rales or rhonchi. ABDOMEN: Soft, generalized abdominal discomfort, moderately distended. Normoactive bowel sounds all 4 quadrants. No guarding or rebound, rigidity, no mass, on rectal exam no prolapse visualized, patient does appear to have a small external hemorrhoid. On digital rectal exam patient has tenderness but no mass. : No CVA tenderness EXTREMITIES: Normal range of motion, no clubbing or edema. Neurovascularly intact NEUROLOGICAL: Cranial nerves II through XII grossly intact. Moving all extremities SKIN: Warm, dry, no petechiae, no rashes or lesions. Initial Vital Signs Initial Vital Signs: Vital Signs Temperature 97.9 F 07/05/23 17:40 Pulse Rate 103 H 07/05/23 17:40 Respiratory Rate 20 07/05/23 17:40 Blood Pressure 141/65 H 07/05/23 17:40 Pulse Oximetry 96 07/05/23 17:40 Oxygen Delivery Method Room Air 07/05/23 17:40 Course Orders Ordered: ED Orders 07/05/23 17:48 EKG-12 Lead Stat 07/05/23 17:57 Complete Blood Count AUTO DIFF Stat Comprehensive Metabolic Panel Stat Lipase Stat 07/05/23 19:33 Urine Microscopic Stat 07/05/23 19:42 CT abdomen pelvis w con Stat Discontinued Medications Sodium Chloride (Normal Saline 0.9%) 1,000 mls @ 1,000 mls/hr IV BOLUS ONE Stop: 07/05/23 19:15 Last Infusion: 07/05/23 21:04 Dose: Infused Documented By: Admin: 07/05/23 18:23 Dose: 1,000 mls/hr Documented By: GHISLAINE Ketorolac Tromethamine (Ketorolac 30 Mg/Ml Vial) 15 mg IV NOW ONE Stop: 07/05/23 18:17 Last Admin: 07/05/23 18:25 Dose: 15 mg Documented By: GHISLAINE Morphine Sulfate (Morphine 4 Mg/Ml Inj) 4 mg IV NOW ONE Stop: 07/05/23 19:44 Last Admin: 07/05/23 20:01 Dose: 4 mg Documented By: MALLORY Ondansetron HCl (Ondansetron 4 Mg Odt) 4 mg PO NOW PRN PRN Reason: Nausea And Vomiting Ondansetron HCl (Ondansetron 4 Mg/2 Ml Inj) 4 mg IV NOW PRN PRN Reason: Nausea And Vomiting Last Admin: 07/05/23 18:26 Dose: 4 mg Documented By: GHISLAINE Oxycodone/Acetaminophen (Oxycodone/Apap 5/325 Prepack) 1 bottle MISC DIRECTED ONE Stop: 07/05/23 20:57 Last Admin: 07/05/23 21:04 Dose: 1 bottle Documented By: MALLORY Vital Signs Vital signs: Vital Signs - 8 hr 07/05/23 17:40 07/05/23 18:10 07/05/23 18:11 Temperature 97.9 F Pulse Rate 103 H Respiratory Rate 20 Blood Pressure 141/65 H 99/66 Pulse Oximetry 96 99 Oxygen Delivery Method Room Air 07/05/23 18:11 07/05/23 18:30 07/05/23 18:30 Temperature Pulse Rate 88 78 Respiratory Rate 18 Blood Pressure 121/70 Pulse Oximetry 95 96 Oxygen Delivery Method 07/05/23 19:00 07/05/23 19:30 07/05/23 19:35 Temperature Pulse Rate 70 81 Respiratory Rate 16 18 Blood Pressure 147/85 H Pulse Oximetry 98 Oxygen Delivery Method 07/05/23 19:35 07/05/23 20:01 07/05/23 20:02 Temperature Pulse Rate 81 77 Respiratory Rate 14 18 Blood Pressure 124/60 Pulse Oximetry 94 97 Oxygen Delivery Method 07/05/23 20:02 07/05/23 20:30 07/05/23 20:30 Temperature Pulse Rate 79 73 Respiratory Rate 20 18 Blood Pressure 136/62 Pulse Oximetry 97 96 Oxygen Delivery Method MDM - Abdominal Pain Lab Data 07/05/23 17:57 07/05/23 17:57 Labs: Lab Results 07/05/23 07/05/23 Range/Units 17:57 19:33 WBC 10.8 (4.5-11.0) X10^3/uL RBC 4.14 (4.0-5.2) X10^6/uL Hgb 13.9 (12.0-16.0) g/dL Hct 40.5 (36-46) % MCV 97.9 (80-100) fL MCH 33.5 (26-34) PG MCHC 34.2 (30-36) % RDW 13.6 (11.6-14.8) % Plt Count 249 (150-400) X10^3/uL Neut % (Auto) 58.9 (50-75) % Lymph % (Auto) 33.9 (25-40) % [place] % (Auto) 6.4 (3-14) % Eos % (Auto) 0.1 L (2-4) % Baso % (Auto) 0.7 (0-2) % Neut # (Auto) 6400 (9620-0388) /uL Lymph # (Auto) 3700 (6649-3191) /uL [place] # (Auto) 700 (0-900) /uL Eos # (Auto) 0 (0-450) /uL Baso # (Auto) 100 (0-100) /uL Sodium 136 L (137-145) mmol/L Potassium 3.2 L (3.4-5.1) mmol/L Chloride 98 (98-107) mmol/L Carbon Dioxide 27 (22-32) mmol/L BUN 13 (7-17) mg/dL Creatinine 0.84 (0.52-1.04) mg/dL Estimated GFR > 60 (>60) mL/min BUN/Creatinine Ratio 15.5 (6-22) Glucose 106 H (70-100) mg/dL Calcium 8.6 (8.4-10.2) mg/dL Total Bilirubin 0.7 (0.2-1.3) mg/dL AST 53 H (14-36) IU/L ALT 29 (<35) IU/L Alkaline Phosphatase 118 (38-126) U/L Total Protein 7.1 (6.3-8.2) g/dL Albumin 4.1 (3.5-5.0) g/dL Globulin 3.0 (1.7-4.1) g/dL Albumin/Globulin Ratio 1.4 (1.0-2.8) Lipase 80 (23-300) U/L Urine RBC None seen (0-5/HPF) Urine WBC None seen (0-5/HPF) Ur Squamous Epith Cells 0-1 /hpf (0-5/HPF) Urine Bacteria Few (2-10) H (None) Ur Culture Indicated? Cult not indicated Vol Urine Centrifuged 10ml (spun) Point of care testing: Urine Dip Bedside Urine Glucose Negative Bedside Urine Bilirubin - Negative Bedside Urine Ketone - Negative Urine Specific [place] 1.01 Bedside Urine Occult Blood +/- Bedside Urine pH 7.5 Bedside Urine Protein +/- 15 Bedside Urine Urobilinogen - Negative Bedside Urine Nitrite - Negative Bedside Urine Leukocytes - Negative Esterase Imaging Data CT scan - abdomen/pelvis: Radiologist's Impression: Close Abdomen/Pelvis CT (Signed) Lila Gamble - 07/05/23 Launch?[address] [address] [address] Scan Report Signed Patient: Ines Novoa MR#: [id number] : 1970 Acct:[id number] Age/Sex: 53 / F Date of Service: 07/05/23 Loc: ED Accession Number: [id number] Procedure: CT abdomen pelvis w con Ordering Provider: Lesly Dasilva D.O. PROCEDURE: CT ABDOMEN PELVIS W CON INDICATIONS: rectal pain/abd pain, hx of prolapse sx x 3, none on exam TECHNIQUE: After the administration of intravenous contrast, axial sections acquired from the lung bases to the pubic symphysis. Coronal and sagittal reformats were performed. For radiation dose reduction, the following was used: automated exposure control, adjustment of mA and/or kV according to patient size. COMPARISON: Pelvic ultrasound 01/21/2018. FINDINGS: Image quality: Diagnostic. Lower Chest: No significant findings. ABDOMEN: Liver: No solid mass. Hepatic steatosis. Gallbladder: No radiopaque gallstones or wall thickening. Biliary ducts: No biliary dilation. Pancreas: No ductal dilation. Spleen: Size is within normal limits. Adrenal Glands: There is a 1.6 centimeter left adrenal nodule (2/25). Kidneys and Ureters: No hydronephrosis. No solid mass. No complex renal cystic lesion which requires follow up. Stomach and Bowel: Normal colonic caliber, without significant wall thickening. Mild rectal wall thickening with hyperdense material. No surrounding inflammation. A few scattered colonic diverticula without acute inflammation. Peritoneum: No abnormal intraperitoneal fluid. No free air. Ventral Wall: No significant ventral hernia. Abdominal Nodes: No retroperitoneal or mesenteric adenopathy by size criteria. Vessels: Aorta and inferior vena cava are normal in size. PELVIS: Pelvic Organs: IUD is present. Uterine calcifications, as previously seen on prior pelvic ultrasound. Surgical clips are seen in the bilateral adnexal region. Left adnexal 2.7 centimeter left simple appearing cystic structure, probable ovarian cyst. Bladder: No bladder wall thickening, accounting for underdistention. Pelvic Nodes: No enlarged lymph nodes. Miscellaneous: No inguinal hernias are seen. Bones: No aggressive osseous abnormality. Degenerative changes of the visualized spine. No acute vertebral body compression fracture. IMPRESSION: Mild rectal wall thickening with hyperdense material may represent postsurgical changes. Left adrenal 1.6 centimeter nodule is indeterminate. Recommend nonemergent adrenal protocol CT or MRI. Hepatic steatosis. Approved by: Lila Gamble M.D.,Ph.D. on 07/05/2023 at 20:24 ECG Data Attestation: I personally reviewed and interpreted this ECG as follows: Prior ECG tracings: not available for review Interpretation: Sinus rhythm rate 88 UT 154 QRS 82 [address]TC [address] No acute [address] elevation depression noted. Patient has prior from June 29 with no acute change. MDM Narrative Medical decision making narrative: 53-year-old female with acute on chronic rectal pain, abdominal pain with history of rectal prolapse and levator and I muscle issues with surgery x3 in the past most recently in the past year with Dr. Higgins at [facility]. Patient has had chronic diarrhea which is not new or different but has had increased rectal pain and feels like-she is having prolapse out she sometimes test push the rectum back in. It has been increasing uncomfortable and she does not have follow up until mid July with Dr. Higgins's. She is also describing some distention abdominal pain in his had some intermittent nausea and vomiting. Patient is hemodynamically stable. Labs show white count of 10.8 hemoglobin of 13.9 platelets of 249. Chemistry shows a sodium of 136 potassium of 3.2, chloride 98 CO2 of 27 BUN 13 creatinine 0.84, glucose of 106, total bili is 0.7 with a AST of 53 otherwise negative LFTs. Lipase is 80. Point of care urine shows protein specific gravity is 1.010 EKG shows sinus rhythm with no acute EKG changes. Discussed with patient with her abdominal discomfort on top of her rectal pain, as well as intermittent nausea vomiting felt appropriate to get a CT abdomen pelvis to rule out for partial obstruction, colitis/diverticulitis or fluid collection. Imaging shows left adrenal nodule 1.6 cm indeterminate recommend nonurgent adrenal protocol CT or MRI, hepatic steatosis and mild rectal wall thickening with hyperdense material could represent postsurgical changes. There is no surrounding inflammation and a few diverticula without scattered inflammation. Discussed with patient plan for her to follow up with her surgeon Dr. Higgins on July 16. Short course of pain medication and follow up for of the adrenal nodule reveiwed. Patient answered all questions. Patient did request prescription for Zofran as well. Discharge Plan Departure Patient Disposition: Home Clinical Impression: Anal or rectal pain, Adrenal nodule Activity Restrictions/Additional Instructions: Follow up with Dr. Higgins. Your imaging does show some thickening at the rectum but this could be secondary to postsurgical changes there are no inflammatory changes or obvious infection changes today. Your CT does show an adrenal nodule that is 1.6 cm, discussed with your physician they may follow up with an adrenal protocol CT or MRI. You may take Tylenol up to a 1000 mg every 6 hours as needed for pain. If you take the Percocet do not take Tylenol with this. Maximum Tylenol is 4000 mg in 24 hours. This medication can make you sleepy do not drive, perform hazardous activities or make any major decisions while taking it. This medication will make you constipated please take a stool softener once to twice daily until stools are soft and regular. Prescription sent to [facility] in [place]. Please return for fevers, persistent vomiting, lightheadedness or passing out, new or worsening abdominal back or flank pain, persistently black or bloody stools or other new or concerning changes. Prescriptions: New oxycodone-acetaminophen [Percocet] 5-325 mg tablet 1 tab PO Q6H PRN (Reason: pain) Qty: 5 0RF ondansetron 4 mg tablet,disintegrating 4 mg PO Q6H PRN (Reason: nausea and vomiting) Qty: 10 0RF No Action losartan-hydrochlorothiazide 50-12.5 mg tablet 1 tab PO DAILY dicyclomine 20 mg tablet 20 mg PO BID Referrals: Stephenie Bear MD [Primary Care Provider] - Konstantin Higgins MD [Non-Staff] - Stand Alone Forms: Patient Portal/API
--- NOTE | 2023-07-05 19:42 | DI.CT.S_ITS ---
PROCEDURE: CT ABDOMEN PELVIS W CON INDICATIONS: rectal pain/abd pain, hx of prolapse sx x 3, none on exam TECHNIQUE: After the administration of intravenous contrast, axial sections acquired from the lung bases to the pubic symphysis. Coronal and sagittal reformats were performed. For radiation dose reduction, the following was used: automated exposure control, adjustment of mA and/or kV according to patient size. COMPARISON: Pelvic ultrasound 01/21/2018. FINDINGS: Image quality: Diagnostic. Lower Chest: No significant findings. ABDOMEN: Liver: No solid mass. Hepatic steatosis. Gallbladder: No radiopaque gallstones or wall thickening. Biliary ducts: No biliary dilation. Pancreas: No ductal dilation. Spleen: Size is within normal limits. Adrenal Glands: There is a 1.6 centimeter left adrenal nodule (2/). Kidneys and Ureters: No hydronephrosis. No solid mass. No complex renal cystic lesion which requires follow up. Stomach and Bowel: Normal colonic caliber, without significant wall thickening. Mild rectal wall thickening with hyperdense material. No surrounding inflammation. A few scattered colonic diverticula without acute inflammation. Peritoneum: No abnormal intraperitoneal fluid. No free air. Ventral Wall: No significant ventral hernia. Abdominal Nodes: No retroperitoneal or mesenteric adenopathy by size criteria. Vessels: Aorta and inferior vena cava are normal in size. PELVIS: Pelvic Organs: IUD is present. Uterine calcifications, as previously seen on prior pelvic ultrasound. Surgical clips are seen in the bilateral adnexal region. Left adnexal 2.7 centimeter left simple appearing cystic structure, probable ovarian cyst. Bladder: No bladder wall thickening, accounting for underdistention. Pelvic Nodes: No enlarged lymph nodes. Miscellaneous: No inguinal hernias are seen. Bones: No aggressive osseous abnormality. Degenerative changes of the visualized spine. No acute vertebral body compression fracture. IMPRESSION: Mild rectal wall thickening with hyperdense material may represent postsurgical changes. Left adrenal 1.6 centimeter nodule is indeterminate. Recommend nonemergent adrenal protocol CT or MRI. Hepatic steatosis. Approved by: Lila Gamble M.D.,Ph.D. on 07/05/2023 at 20:24
[2023-07-05 19:56] LABS: Bacteria Urine Few (2-10); Culture Indicated Urine Cult Not Indicated; RBC Urine None Seen (0-5/HPF); Squamous Epithelial Cell Urine 0-1 /HPF (0-5/HPF); Urine Volume 10mL (spun); WBC Urine None Seen (0-5/HPF)
[2023-07-05] MEDS: MORPHINE 4 MG/ML INJ IV (20:01)
[2023-07-05] MEDS: OXYCODONE/APAP 5/325 PREPACK 1 BOTTLE MISC (21:04)
== END 2023-07-05 21:12 | disposition home or self-care (01) ==
PROVIDERS: Emergency Provider Emergency Medicine; PCP Family Medicine
DX: K62.89 Other specified diseases of anus and rectum (principal); E27.8 Other specified disorders of adrenal gland; R10.9 Unspecified abdominal pain
CPT/HCPCS: 36415; 74177; 80053; 81003; 81015; 83690; 85025; 93005; 93010; 96361; 96374; 96375; 99284; J1885; J2270; J2405; Q9967

== ENCOUNTER 2023-07-17 13:56 | Emergency (ER) | payer OTHER, SELFPAY ==
[2023-07-17 14:23] VITALS: BP 137/71; PULSE 79; RESP 18; TEMP 36.4; O2SAT 99; BMI 24.3
[2023-07-17 14:42] LABS: Add Manual Diff / Slide Review NO; Basophils Absolute Auto 100 /uL (0-100); Basophils Percent Auto 0.9 % (0-2); Eosinophils Absolute Auto 0 /uL (0-450); Eosinophils Percent Auto 0.3 % (2-4); Hematocrit 36.6 % (36-46); Hemoglobin 12.6 g/dL (12.0-16.0); Lymphocytes Absolute Auto 2800 /uL (1100-4500); Lymphocytes Percent Auto 33.9 % (25-40); Mean Corpuscular HGB Conc 34.6 % (30-36); Mean Corpuscular Volume 98.3 fL (80-100); Monocytes Absolute Auto 700 /uL (0-900); Monocytes Percent Auto 8.4 % (3-14); Neutrophils Absolute Auto 4700 /uL (1500-7000); Neutrophils Percent Auto 56.5 % (50-75); Platelet Count 295 X10^3/uL (150-400); Red Blood Cell Count 3.72 X10^6/uL (4.0-5.2); Red Cell Distribution Width 14.5 % (11.6-14.8); White Blood Cell Count 8.3 X10^3/uL (4.5-11.0)
[2023-07-17 14:56] LABS: Alanine Aminotransferase 21 IU/L (<35); Albumin 3.9 g/dL (3.5-5.0); Albumin Globulin Ratio 1.3 (1.0-2.8); Alkaline Phosphatase 106 U/L (38-126); Aspartate Aminotransferase 34 IU/L (14-36); BUN Creatinine Ratio 15.7 (6-22); Bilirubin Total 0.4 mg/dL (0.2-1.3); Blood Urea Nitrogen 8 mg/dL (7-17); Calcium 8.7 mg/dL (8.4-10.2); Carbon Dioxide 25 mmol/L (22-32); Chloride 102 mmol/L (98-107); Estimated Glomerular Filt Rate > 60 mL/min (>60); Globulin 3.1 g/dL (1.7-4.1); Glucose 122 mg/dL (70-100); HEMOLYSIS < 15 (0-50); Lipase 64 U/L (23-300); Sodium 137 mmol/L (137-145)
[2023-07-17 14:58] LABS: Potassium 2.7 mmol/L (3.4-5.1)
--- NOTE | 2023-07-17 15:38 | DI.CT.S_ITS ---
PROCEDURE: CT ABDOMEN PELVIS W CON INDICATIONS: pain hx rectal prolapse swelling, right sided pain TECHNIQUE: After the administration of intravenous contrast, axial sections acquired from the lung bases to the pubic symphysis. Coronal and sagittal reformats were performed. For radiation dose reduction, the following was used: automated exposure control, adjustment of mA and/or kV according to patient size. COMPARISON: [facility], CT, CT ABDOMEN PELVIS W CON, 07/05/2023, 19:46. FINDINGS: Image quality: Diagnostic. Lower Chest: No significant findings. ABDOMEN: Liver: No solid mass. Gallbladder: No radiopaque gallstones or wall thickening. Biliary ducts: No biliary dilation. Pancreas: No ductal dilation. Spleen: Size is within normal limits. Adrenal Glands: No adrenal nodules. Kidneys and Ureters: No hydronephrosis. No solid mass. No complex renal cystic lesion which requires follow up. Stomach and Bowel: There is fatty infiltration of the wall of the right colon suggesting chronic inflammation. The wall of the right colon and cecum is not abnormally thickened. An appendix is not visualized. There are no findings suggesting acute appendicitis. No dilated loops of bowel or thickened loops of bowel noted. Distal rectal clips. Peritoneum: No abnormal intraperitoneal fluid. No free air. Ventral Wall: No significant ventral hernia. Abdominal Nodes: No retroperitoneal or mesenteric adenopathy by size criteria. Vessels: Aorta and inferior vena cava are normal in size. PELVIS: Pelvic Organs: An IUD is in place. Bilateral adnexal clips are noted. Posterior pelvic floor relaxation is noted. Bladder: No bladder wall thickening, accounting for underdistention. Pelvic Nodes: No enlarged lymph nodes. Miscellaneous: No inguinal hernias are seen. Bones: No aggressive osseous abnormality. Lumbar degenerative change. IMPRESSION: 1. No evidence acute abdominal process. 2. There is a degree of posterior pelvic floor relaxation. Dictated by: Manjinder oNlasco M.D. on 07/17/2023 at 16:24 Approved by: Manjinder Nolasco M.D. on 07/17/2023 at 16:41
[2023-07-17 17:25] VITALS: BP 125/66; PULSE 74; O2SAT 98
[2023-07-17 17:38] VITALS: BP 125/94; PULSE 70; O2SAT 98
[2023-07-17 18:00] VITALS: BP 142/72; PULSE 70; O2SAT 95
--- NOTE | 2023-07-17 18:17 | ED_ITS ---
HPI - Abdominal Pain General Chief Complaint: Abdominal Pain Stated Complaint: per pt extended belly for 3hrs, swelling on feet Time Seen by Provider: 07/17/23 15:39 Source: patient Mode of arrival: Ambulatory History of Present Illness HPI narrative: 53-year-old female presents for evaluation of generalized abdominal bloating as well as bilateral ankle swelling. Patient has history of rectal prolapse requiring surgical correction, she was at her surgeon's office when she complained of abdominal distention and bloating and she states her surgeon told her to come to the ER for evaluation. Ankles have been swollen for several weeks, nothing seems to make this better or worse. Patient denies chest pain, shortness of breath, history of heart failure. Related Data Home Medications Medication Instructions Recorded Confirmed dicyclomine 20 mg tablet 20 mg PO BID 06/30/23 06/30/23 losartan 50 mg-hydrochlorothiazide 1 tab PO DAILY 06/30/23 06/30/23 12.5 mg tablet Previous Rx's Medication Instructions Recorded ondansetron 4 mg disintegrating 4 mg PO Q6H PRN nausea and 07/05/23 tablet vomiting #10 tabs oxycodone-acetaminophen 5 mg-325 1 tab PO Q6H PRN pain #5 tabs 07/05/23 mg tablet (Percocet) Allergies Allergy/AdvReac Type Severity Reaction Status Date / Time meperidine [From Demerol] Allergy Severe paralysis Verified 06/30/23 20:39 Penicillins [PENICILLINS] AdvReac Unknown Hives Verified 06/30/23 20:39 amoxicillin AdvReac Hives Verified 06/30/23 20:39 Review of Systems Review of Systems Narrative: Negative except as noted above Patient History Medical History Anxiety (2006) Chickenpox (1977) Chronic back pain (1994) Fibroids (Unknown) Heavy menstrual period (1991) Painful menstrual periods (1991) Endometriosis (1991) Genital warts (1991) Chlamydia (1985) Abnormal Pap smear of cervix (1991) Frequent UTI (Unknown) IBS (irritable bowel syndrome) (2007) Depression (2006) Surgical History Hx of tubal ligation (1994) Hx of tonsillectomy (1978) Family History Father Age: 75 Heart disease Hypertension High cholesterol Mother Mental health problem Grandfather Heart disease Hypertension Grandmother No problems noted. Grandfather No problems noted. Grandmother Cancer Social History Smoking Status: Current every day smoker alcohol intake: current Smoking Status: Current every day smoker tobacco type: cigarettes alcohol intake frequency: 3 or more drinks per day Alcohol type: beer Substance Use Type: does not use Exam Initial Vital Signs Initial Vital Signs: Vital Signs Temperature 97.5 F L 07/17/23 14:23 Pulse Rate 79 07/17/23 14:23 Respiratory Rate 18 07/17/23 14:23 Blood Pressure 137/71 07/17/23 14:23 Pulse Oximetry 99 07/17/23 14:23 Oxygen Delivery Method Room Air 07/17/23 14:23 Const: Awake, alert, no acute distress, nontoxic appearing Cardiac: regular rate, regular rhythm RESP: unlabored, clear bilaterally, no wheezing GI: Soft, nontender, nondistended MSK: Trace pitting edema to ankles bilaterally Skin: Warm, Dry, intact, no rashes Neuro: AO x3, CN II-XII grossly intact, moves all extremities Course Orders Ordered: Discontinued Medications Ondansetron HCl (Ondansetron 4 Mg Odt) 4 mg PO NOW PRN PRN Reason: Nausea And Vomiting Ondansetron HCl (Ondansetron 4 Mg/2 Ml Inj) 4 mg IV NOW PRN PRN Reason: Nausea And Vomiting Potassium Chloride (Potassium Chloride 20 Meq Tab) 40 meq PO NOW ONE Stop: 07/17/23 18:34 Last Admin: 07/17/23 18:42 Dose: 40 meq Documented By: GLADYS Vital Signs Vital signs: Vital Signs - 8 hr 07/17/23 14:23 07/17/23 17:25 Temperature 97.5 F L Pulse Rate 79 74 Respiratory Rate 18 Blood Pressure 137/71 125/66 Pulse Oximetry 99 98 Oxygen Delivery Method Room Air Room Air MDM - Abdominal Pain Differential Diagnosis Differential diagnosis: Likely abdominal pain, acute appendicitis and calculus of kidney Lab Data 07/17/23 14:35 07/17/23 14:35 Labs: Lab Results 07/17/23 07/17/23 Range/Units 14:35 18:03 WBC 8.3 (4.5-11.0) X10^3/uL RBC 3.72 L (4.0-5.2) X10^6/uL Hgb 12.6 (12.0-16.0) g/dL Hct 36.6 (36-46) % MCV 98.3 (80-100) fL MCH 34.0 (26-34) PG MCHC 34.6 (30-36) % RDW 14.5 (11.6-14.8) % Plt Count 295 (150-400) X10^3/uL Neut % (Auto) 56.5 (50-75) % Lymph % (Auto) 33.9 (25-40) % [place] % (Auto) 8.4 (3-14) % Eos % (Auto) 0.3 L (2-4) % Baso % (Auto) 0.9 (0-2) % Neut # (Auto) 4700 (9332-3466) /uL Lymph # (Auto) 2800 (3912-7428) /uL [place] # (Auto) 700 (0-900) /uL Eos # (Auto) 0 (0-450) /uL Baso # (Auto) 100 (0-100) /uL Sodium 137 (137-145) mmol/L Potassium 2.7 L* (3.4-5.1) mmol/L Chloride 102 (98-107) mmol/L Carbon Dioxide 25 (22-32) mmol/L BUN 8 (7-17) mg/dL Creatinine 0.51 L (0.52-1.04) mg/dL Estimated GFR > 60 (>60) mL/min BUN/Creatinine Ratio 15.7 (6-22) Glucose 122 H (70-100) mg/dL Calcium 8.7 (8.4-10.2) mg/dL Total Bilirubin 0.4 (0.2-1.3) mg/dL AST 34 (14-36) IU/L ALT 21 (<35) IU/L Alkaline Phosphatase 106 (38-126) U/L Total Protein 7.0 (6.3-8.2) g/dL Albumin 3.9 (3.5-5.0) g/dL Globulin 3.1 (1.7-4.1) g/dL Albumin/Globulin Ratio 1.3 (1.0-2.8) Lipase 64 (23-300) U/L Urine RBC 0-1/hpf (0-5/HPF) Urine WBC None seen (0-5/HPF) Ur Squamous Epith Cells 0-1 /hpf (0-5/HPF) Urine Bacteria Occasional (0-1) (None) Ur Culture Indicated? Cult not indicated Vol Urine Centrifuged 10ml (spun) Point of care testing: Urine Dip Bedside Urine Glucose Negative Bedside Urine Bilirubin - Negative Bedside Urine Ketone - Negative Urine Specific [place] 1.010 Bedside Urine Occult Blood +/- Bedside Urine pH 6.0 Bedside Urine Protein - Negative Bedside Urine Urobilinogen - Negative Bedside Urine Nitrite - Negative Bedside Urine Leukocytes - Negative Esterase Imaging Data CT scan - abdomen/pelvis: Radiologist's Impression: PROCEDURE: CT ABDOMEN PELVIS W CON INDICATIONS: pain hx rectal prolapse swelling, right sided pain TECHNIQUE: After the administration of intravenous contrast, axial sections acquired from the lung bases to the pubic symphysis. Coronal and sagittal reformats were performed. For radiation dose reduction, the following was used: automated exposure control, adjustment of mA and/or kV according to patient size. COMPARISON: [facility], CT, CT ABDOMEN PELVIS W CON, 07/05/2023, 19:46. FINDINGS: Image quality: Diagnostic. Lower Chest: No significant findings. ABDOMEN: Liver: No solid mass. Gallbladder: No radiopaque gallstones or wall thickening. Biliary ducts: No biliary dilation. Pancreas: No ductal dilation. Spleen: Size is within normal limits. Adrenal Glands: No adrenal nodules. Kidneys and Ureters: No hydronephrosis. No solid mass. No complex renal cystic lesion which requires follow up. Stomach and Bowel: There is fatty infiltration of the wall of the right colon suggesting chronic inflammation. The wall of the right colon and cecum is not abnormally thickened. An appendix is not visualized. There are no findings suggesting acute appendicitis. No dilated loops of bowel or thickened loops of bowel noted. Distal rectal clips. Peritoneum: No abnormal intraperitoneal fluid. No free air. Ventral Wall: No significant ventral hernia. Abdominal Nodes: No retroperitoneal or mesenteric adenopathy by size criteria. Vessels: Aorta and inferior vena cava are normal in size. PELVIS: Pelvic Organs: An IUD is in place. Bilateral adnexal clips are noted. Posterior pelvic floor relaxation is noted. Bladder: No bladder wall thickening, accounting for underdistention. Pelvic Nodes: No enlarged lymph nodes. Miscellaneous: No inguinal hernias are seen. Bones: No aggressive osseous abnormality. Lumbar degenerative change. IMPRESSION: 1. No evidence acute abdominal process. 2. There is a degree of posterior pelvic floor relaxation. Dictated by: Manjinder Nolasco M.D. on 07/17/2023 at 16:24 Approved by: Manjinder Nolasco M.D. on 07/17/2023 at 16:41 US - DVT: Radiologist's Impression: PROCEDURE: US PERIPH VENOUS LOW EXTREM BI INDICATIONS: BLE EDEMA TECHNIQUE: Real-time imaging, as well as color and pulse Doppler interrogation, were performed of the deep veins of both legs from the inguinal ligament to the popliteal fossa, with documentation of the visualized calf veins. COMPARISON: None. FINDINGS: Right: The common femoral, femoral, popliteal, and the visualized calf veins are normally compressible, and free of intraluminal thrombus. Color and pulse Doppler demonstrate normal phasic intravascular flow. There is normal augmentation response to distal compression maneuver. Left: The common femoral, femoral, popliteal, and the visualized calf veins are normally compressible, and free of intraluminal thrombus. Color and pulse Doppler demonstrate normal phasic intravascular flow. There is normal augmentation response to distal compression maneuver. IMPRESSION: No findings of deep venous thrombosis in either lower extremity. Dictated by: Hugo Amezcua M.D. on 07/17/2023 at 19:52 Approved by: Hugo Amezcua M.D. on 07/17/2023 at 19:52 [facility] Narrative Medical decision making narrative: Several hours of abdominal distention and bilateral ankle swelling. Abdomen is soft with no significant reproducible tenderness to light or deep palpation, no peritoneal signs. Laboratory work is significant for potassium of 2.7, oral repletion ordered in the emergency department. Other laboratory work is unremarkable. CT of the abdomen and pelvis shows no findings that would explain patient's reported distention and bloating. Ultrasound of the lower extremities negative for DVT. Patient counseled to elevate her legs when at rest and to wear compression stockings. She was advised of her low potassium and counseled to eat potassium rich foods for the next several days. Encouraged PCP follow up if she continues to experience bloating and the sensation of distention Discharge Plan Departure Patient Disposition: Home Clinical Impression: Abdominal bloating, Leg swelling Instructions: Intestinal Gas (Alternative Therapy), DI for Peripheral Edema -- Bilateral Activity Restrictions/Additional Instructions: Your laboratory work and imaging today was significant for hypokalemia or low potassium. Eat potassium rich foods over the next several days and follow up with your primary care physician. No definitive reason for your abdominal bloating or leg swelling was found on your imaging today. I recommend close follow up with your primary care physician, especially if you continue to experience symptoms Prescriptions: No Action oxycodone-acetaminophen [Percocet] 5-325 mg tablet 1 tab PO Q6H PRN (Reason: pain) Qty: 5 0RF ondansetron 4 mg tablet,disintegrating 4 mg PO Q6H PRN (Reason: nausea and vomiting) Qty: 10 0RF losartan-hydrochlorothiazide 50-12.5 mg tablet 1 tab PO DAILY dicyclomine 20 mg tablet 20 mg PO BID Referrals: Stephenie Bear MD [Primary Care Provider] - Stand Alone Forms: Patient Portal/API
[2023-07-17 18:30] VITALS: BP 124/68; PULSE 66; O2SAT 95
--- NOTE | 2023-07-17 18:38 | DI.US.S_ITS ---
PROCEDURE: US PERIPH VENOUS LOW EXTREM BI INDICATIONS: BLE EDEMA TECHNIQUE: Real-time imaging, as well as color and pulse Doppler interrogation, were performed of the deep veins of both legs from the inguinal ligament to the popliteal fossa, with documentation of the visualized calf veins. COMPARISON: None. FINDINGS: Right: The common femoral, femoral, popliteal, and the visualized calf veins are normally compressible, and free of intraluminal thrombus. Color and pulse Doppler demonstrate normal phasic intravascular flow. There is normal augmentation response to distal compression maneuver. Left: The common femoral, femoral, popliteal, and the visualized calf veins are normally compressible, and free of intraluminal thrombus. Color and pulse Doppler demonstrate normal phasic intravascular flow. There is normal augmentation response to distal compression maneuver. IMPRESSION: No findings of deep venous thrombosis in either lower extremity. Dictated by: Hugo Amezcua M.D. on 07/17/2023 at 19:52 Approved by: Hugo Amezcua M.D. on 07/17/2023 at 19:52
[2023-07-17 18:41] LABS: Bacteria Urine Occasional (0-1); Culture Indicated Urine Cult Not Indicated; RBC Urine 0-1/HPF (0-5/HPF); Squamous Epithelial Cell Urine 0-1 /HPF (0-5/HPF); Urine Volume 10mL (spun); WBC Urine None Seen (0-5/HPF)
[2023-07-17] MEDS: POTASSIUM CHLORIDE 20 MEQ TAB 40 MEQ PO (18:42)
[2023-07-17 19:00] VITALS: BP 127/62; PULSE 77; RESP 20; TEMP 36.4; O2SAT 97
== END 2023-07-17 20:03 | disposition home or self-care (01) ==
PROVIDERS: Emergency Medicine; Emergency Provider Emergency Medicine; PCP Family Medicine
DX: R14.0 Abdominal distension (gaseous) (principal); R60.9 Edema, unspecified
CPT/HCPCS: 36415; 74177; 80053; 81003; 81015; 83690; 85025; 93970; 99283; 99284; Q9967

== ENCOUNTER → 2023-08-15 11:02 | Outpatient (CLI) | payer OTHER, SELFPAY | PROVIDERS: PCP Family Medicine; Visit Provider Nurse Practitioner Family | DX: R30.0 Dysuria (principal) | CPT/HCPCS: 87077; 87086; 87186 ==

== ENCOUNTER → 2023-10-02 10:51 | Outpatient (CLI) | payer OTHER, SELFPAY ==
[2023-10-02 12:26] LABS: Follicle Stimulating Hormone 62.8 mIU/mL
[2023-10-02 12:39] LABS: TSH w/ Reflex to FT4 1.27 uIU/mL (0.47-4.68)
== END ==
PROVIDERS: PCP Family Medicine; Referring Provider Family Medicine; Visit Provider Family Medicine
DX: N95.1 Menopausal and female climacteric states (principal)
CPT/HCPCS: 36415; 83001; 84146; 84443

== ENCOUNTER 2023-10-05 08:16 | Inpatient (IN) | payer OTHER, SELFPAY ==
[2023-10-05] VITALS (19 sets, daily range): BP systolic 91–122; BP diastolic 53–75; PULSE 64–83; RESP 12–22; TEMP 36.5–36.9; O2SAT 92–99; BMI 22.8
--- NOTE | 2023-10-05 08:29 | DI.RAD.S_ITS ---
PROCEDURE: XR CHEST 1V INDICATIONS: chest pain TECHNIQUE: One view of the chest was acquired. COMPARISON: [facility], CR, XR CHEST 1V, 06/30/2023, 21:18. FINDINGS: Surgical changes and devices: None. Lungs and pleura: Minimal streaky medial left lower lobe opacities. Mediastinum: Mediastinal contours appear normal. Heart size is normal. Bones and chest wall: No suspicious bony lesions. Overlying soft tissues appear unremarkable. IMPRESSION: Minimal left lower lobe opacities possibly atelectasis versus developing pneumonia. Dictated by: Maria E Tobias M.D. on 10/05/2023 at 8:56 Approved by: Maria E Tobias M.D. on 10/05/2023 at 8:56
--- NOTE | 2023-10-05 08:39 | EKG_ITS ---
[place] [id number] [place] [id number] Test Date: 2023-10-05 Pat Name: Ines Novoa Department: [facility] Room: Gender: Female [employer]: AURA : 1970 Requested By: Order Number: [id number] Reading MD: Darren Garza Measurements Intervals [place] Rate: 66 P: 3 MT: 158 QRS: 54 QRSD: 90 T: 46 QT: 436 QTc: 457 Interpretive Statements Normal sinus rhythm Nonspecific ST abnormality Electronically Signed On 10-06-2023 18:25:43 PDT by Darren Garza
[2023-10-05 08:58] LABS: Add Manual Diff / Slide Review NO; Basophils Absolute Auto 0 /uL (0-100); Basophils Percent Auto 0.4 % (0-2); Eosinophils Absolute Auto 0 /uL (0-450); Eosinophils Percent Auto 0.1 % (2-4); Hematocrit 35.5 % (36-46); Hemoglobin 12.5 g/dL (12.0-16.0); Lymphocytes Absolute Auto 3100 /uL (1100-4500); Lymphocytes Percent Auto 27.5 % (25-40); Mean Corpuscular HGB Conc 35.3 % (30-36); Mean Corpuscular Hemoglobin 34.8 PG (26-34); Mean Corpuscular Volume 98.8 fL (80-100); Monocytes Absolute Auto 800 /uL (0-900); Monocytes Percent Auto 7.2 % (3-14); Neutrophils Absolute Auto 7300 /uL (1500-7000); Neutrophils Percent Auto 64.8 % (50-75); Platelet Count 213 X10^3/uL (150-400); Red Blood Cell Count 3.59 X10^6/uL (4.0-5.2); Red Cell Distribution Width 14.7 % (11.6-14.8); White Blood Cell Count 11.3 X10^3/uL (4.5-11.0)
[2023-10-05 09:02] LABS: INR 1.1 (0.9-1.3); Prothrombin Time 12.9 SECONDS (9.4-12.5)
[2023-10-05 09:05] LABS: PTT Partial Thromboplastin Tim 26 SECONDS (25.1-36.5)
[2023-10-05 09:08] LABS: Alanine Aminotransferase 21 IU/L (<35); Albumin 3.9 g/dL (3.5-5.0); Albumin Globulin Ratio 1.4 (1.0-2.8); Alkaline Phosphatase 149 U/L (38-126); Aspartate Aminotransferase 26 IU/L (14-36); BUN Creatinine Ratio 10.1 (6-22); Bilirubin Total 0.7 mg/dL (0.2-1.3); Blood Urea Nitrogen 8 mg/dL (7-17); Calcium 8.3 mg/dL (8.4-10.2); Carbon Dioxide 28 mmol/L (22-32); Chloride 92 mmol/L (98-107); Creatine Kinase 77 U/L (30-135); Estimated Glomerular Filt Rate > 60 mL/min (>60); Globulin 2.8 g/dL (1.7-4.1); Glucose 132 mg/dL (70-100); Magnesium 1.1 mg/dL (1.6-2.3); Sodium 124 mmol/L (137-145); Total Protein 6.7 g/dL (6.3-8.2)
[2023-10-05 09:18] LABS: Troponin I < 0.012 ng/mL (0.01-0.034)
[2023-10-05 09:23] LABS: Potassium 2.4 mmol/L (3.4-5.1)
[2023-10-05 09:24] LABS: HEMOLYSIS 18 (0-50)
[2023-10-05 09:31] LABS: NT-proBNP (BNP-Adult 18+) 287 pg/mL (<125)
[2023-10-05 09:41] LABS: Lipase 7308 U/L (23-300)
--- NOTE | 2023-10-05 09:46 | ED_ITS ---
HPI - Chest Pain General Chief Complaint: Chest Pain Stated Complaint: abd/chest pain, nausea Time Seen by Provider: 10/05/23 09:46 History of Present Illness HPI narrative: 53-year-old woman with a history of irritable bowel syndrome, prior rectal prolapse requiring surgical intervention notes she has been having significant diarrhea all last week increasing cramping this week in the cramping was so severe that awoke her from sleep this morning. She has been passing gas up until about midnight but none past that. She is becoming increasingly nauseated. She states the pain is diffuse through her abdomen worse with movement does radiate up into her chest but is not of overt chest pain or palpitations. She has not noted any black or bloody stools, no bloody emesis. No headaches no dyspnea and no recent fevers. Related Data Home Medications Medication Instructions Recorded Confirmed dicyclomine 20 mg tablet 20 mg PO BID 06/30/23 08/15/23 losartan 50 mg-hydrochlorothiazide 1 tab PO DAILY 06/30/23 08/15/23 12.5 mg tablet levonorgestrel 21 mcg/24 hours (8 intrauterine 08/15/23 08/15/23 yrs) 52 mg intrauterine device (Mirena) loperamide 2 mg capsule 2 mg PO Q6H PRN 08/15/23 08/15/23 (Anti-Diarrheal (loperamide)) omeprazole magnesium 20 mg 20 mg PO BID 08/15/23 08/15/23 capsule,delayed release Previous Rx's Medication Instructions Recorded ondansetron 4 mg disintegrating 4 mg PO Q6H PRN nausea and 07/05/23 tablet vomiting #10 tabs Allergies Allergy/AdvReac Type Severity Reaction Status Date / Time meperidine [From Demerol] Allergy Severe paralysis Verified 08/15/23 10:53 Penicillins [PENICILLINS] AdvReac Unknown Hives Verified 08/15/23 10:53 amoxicillin AdvReac Hives Verified 08/15/23 10:53 Review of Systems Review of Systems Narrative: Pertinent positive and negative findings as per HPI Patient History Medical History (Updated 10/05/23 @ 12:16 by Josy Lynch MD) Anxiety (2006) Chickenpox (1977) Chronic back pain (1994) Fibroids (Unknown) Heavy menstrual period (1991) Painful menstrual periods (1991) Endometriosis (1992) Genital warts (1992) Chlamydia (1985) Abnormal Pap smear of cervix (1991) Frequent UTI (Unknown) IBS (irritable bowel syndrome) (2007) Depression (2006) Surgical History Hx of tubal ligation (1994) Hx of tonsillectomy (1978) Family History Father Age: 76 Heart disease Hypertension High cholesterol Mother Mental health problem Grandfather Heart disease Hypertension Grandmother No problems noted. Grandfather No problems noted. Grandmother Cancer Social History Smoking Status: Current every day smoker alcohol intake: current Smoking Status: Current every day smoker tobacco type: cigarettes alcohol intake frequency: 3 or more drinks per day Alcohol type: beer Substance Use Type: does not use Exam Initial Vital Signs Initial Vital Signs: Vital Signs Temperature 98.4 F 10/05/23 08:24 Pulse Rate 70 10/05/23 08:24 Respiratory Rate 20 10/05/23 08:24 Blood Pressure 91/53 L 10/05/23 08:24 Pulse Oximetry 98 10/05/23 08:24 Oxygen Delivery Method Room Air 10/05/23 08:24 General: Healthy appearing, with significant abdominal pain Able to give a complete and coherent history. Well-nourished well-developed HEENT: Moist mucous membranes, normal sclera with reactive pupils, Respiratory: Lungs are clear to auscultation, no wheezing no rales no rhonchi. Full and symmetrical air movement Cardiac: Regular rate and rhythm no murmurs no bruits Abdomen: Slightly tympanitic, moderate distention, borborygmi appreciated. Tenderness with palpation but no rebound Skin: Warm and dry, no rashes Neurologic: Grossly neurologically intact with no obvious asymmetries or abnormalities Extremities: No trauma, well perfused, no lower extremity edema Psych: Cooperative, appropriate insight and affect Course Orders Ordered: ED Orders 10/05/23 08:29 XR chest 1V Stat EKG-12 Lead Stat 10/05/23 08:48 Complete Blood Count AUTO DIFF Stat Comprehensive Metabolic Panel Stat Lipase Stat Magnesium Stat NT-proBNP (BNP-Adult 18+) Stat PTT Partial Thromboplastin Levon Stat Prothrombin Time INR Stat Troponin & CK Cardiac Panel Stat 10/05/23 09:59 CT abdomen pelvis w con Stat Hydromorphone HCl (Hydromorphone 0.5 Mg Inj) 0.5 mg IV Q15MIN PRN PRN Reason: Pain, Last Admin: 10/05/23 12:06 Dose: 0.5 mg Documented By: Admin: 10/05/23 11:18 Dose: 0.5 mg Documented By: ANGELINE POTASSIUM CHLORIDE IN WATER (Potassium Cl 10 Meq/100 Ml Larisa) 10 meq in 100 mls @ 100 mls/hr IV Q1H VERONICA Stop: 10/05/23 13:59 Last Admin: 10/05/23 12:07 Dose: 100 mls/hr Documented By: Infusion: 10/05/23 11:19 Dose: Infused Documented By: Admin: 10/05/23 10:19 Dose: 100 mls/hr Documented By: TOMI Sodium Chloride (Normal Saline 0.9%) 1,000 mls @ 150 mls/hr IV CONT VERONICA Last Admin: 10/05/23 10:56 Dose: 150 mls/hr Documented By: TOMI Discontinued Medications Aspirin (Aspirin 81 Mg Chew Tab) 324 mg PO NOW ONE Stop: 10/05/23 08:30 Last Admin: 10/05/23 11:02 Dose: Not Given Documented By: TOMI Hydromorphone HCl (Hydromorphone 1 Mg Inj) 1 mg IV NOW ONE Stop: 10/05/23 09:59 Last Admin: 10/05/23 10:18 Dose: 1 mg Documented By: TOMI Magnesium Sulfate (Magnesium Sulfate) 2 gm in 50 mls @ 150 mls/hr IV NOW ONE Stop: 10/05/23 10:17 Last Infusion: 10/05/23 11:59 Dose: Infused Documented By: ROSALIND Co-signed By: ANGELINE Admin: 10/05/23 10:56 Dose: 150 mls/hr Documented By: TOMI Co-signed By: KENDALL Sodium Chloride (Normal Saline 0.9%) 1,000 mls @ 1,000 mls/hr IV BOLUS ONE Stop: 10/05/23 10:57 Last Infusion: 10/05/23 11:21 Dose: Infused Documented By: Admin: 10/05/23 10:18 Dose: 1,000 mls/hr Documented By: TOMI Ketorolac Tromethamine (Ketorolac 30 Mg/Ml Vial) 15 mg IV NOW ONE Stop: 10/05/23 09:59 Last Admin: 10/05/23 10:18 Dose: 15 mg Documented By: TOMI Ondansetron HCl (Ondansetron 4 Mg/2 Ml Inj) 4 mg IV NOW ONE Stop: 10/05/23 09:59 Last Admin: 10/05/23 10:18 Dose: 4 mg Documented By: TOMI Vital Signs Vital signs: Vital Signs - 8 hr 10/05/23 08:24 10/05/23 08:33 10/05/23 08:39 Temperature 98.4 F Pulse Rate 70 70 68 Respiratory Rate 20 22 Blood Pressure 91/53 L Pulse Oximetry 98 97 97 Oxygen Delivery Method Room Air 10/05/23 08:39 10/05/23 09:00 10/05/23 09:00 Temperature Pulse Rate 65 Respiratory Rate Blood Pressure 103/63 100/62 Pulse Oximetry 97 Oxygen Delivery Method 10/05/23 09:30 10/05/23 09:30 10/05/23 10:00 Temperature Pulse Rate 64 Respiratory Rate Blood Pressure 112/66 112/66 Pulse Oximetry 96 Oxygen Delivery Method 10/05/23 10:00 10/05/23 10:30 10/05/23 10:30 Temperature Pulse Rate 69 73 Respiratory Rate 16 Blood Pressure 121/73 Pulse Oximetry 98 Oxygen Delivery Method 10/05/23 10:44 10/05/23 10:44 10/05/23 11:00 Temperature Pulse Rate 83 67 Respiratory Rate 15 17 Blood Pressure 122/73 Pulse Oximetry 98 98 Oxygen Delivery Method MDM - Chest Pain Lab Data 10/05/23 08:48 10/05/23 08:48 Labs: Lab Results 10/05/23 Range/Units 08:48 WBC 11.3 H (4.5-11.0) X10^3/uL RBC 3.59 L (4.0-5.2) X10^6/uL Hgb 12.5 (12.0-16.0) g/dL Hct 35.5 L (36-46) % MCV 98.8 (80-100) fL MCH 34.8 H (26-34) PG MCHC 35.3 (30-36) % RDW 14.7 (11.6-14.8) % Plt Count 213 (150-400) X10^3/uL Neut % (Auto) 64.8 (50-75) % Lymph % (Auto) 27.5 (25-40) % [place] % (Auto) 7.2 (3-14) % Eos % (Auto) 0.1 L (2-4) % Baso % (Auto) 0.4 (0-2) % Neut # (Auto) 7300 H (0440-6818) /uL Lymph # (Auto) 3100 (3269-8202) /uL [place] # (Auto) 800 (0-900) /uL Eos # (Auto) 0 (0-450) /uL Baso # (Auto) 0 (0-100) /uL PT 12.9 H (9.4-12.5) SECONDS INR 1.1 (0.9-1.3) APTT 26 (25.1-36.5) SECONDS Sodium 124 L (137-145) mmol/L Potassium 2.4 L* (3.4-5.1) mmol/L Chloride 92 L (98-107) mmol/L Carbon Dioxide 28 (22-32) mmol/L BUN 8 (7-17) mg/dL Creatinine 0.79 (0.52-1.04) mg/dL Estimated GFR > 60 (>60) mL/min BUN/Creatinine Ratio 10.1 (6-22) Glucose 132 H (70-100) mg/dL Calcium 8.3 L (8.4-10.2) mg/dL Magnesium 1.1 L (1.6-2.3) mg/dL Total Bilirubin 0.7 (0.2-1.3) mg/dL AST 26 (14-36) IU/L ALT 21 (<35) IU/L Alkaline Phosphatase 149 H (38-126) U/L Total Creatine Kinase 77 (30-135) U/L Troponin I < 0.012 (0.01-0.034) ng/mL NT-Pro-B Natriuret Pep 287 H (<125) pg/mL Total Protein 6.7 (6.3-8.2) g/dL Albumin 3.9 (3.5-5.0) g/dL Globulin 2.8 (1.7-4.1) g/dL Albumin/Globulin Ratio 1.4 (1.0-2.8) Lipase 7308 H (23-300) U/L Imaging Data CT scan - abdomen/pelvis: Radiologist's Impression: PROCEDURE: CT ABDOMEN PELVIS W CON INDICATIONS: abd pain, ? pancreatitis TECHNIQUE: After the administration of intravenous contrast, axial sections acquired from the lung bases to the pubic symphysis. Coronal and sagittal reformats were performed. For radiation dose reduction, the following was used: automated exposure control, adjustment of mA and/or kV according to patient size. COMPARISON: [facility], CT, CT ABDOMEN PELVIS W CON, 07/17/2023, 16:00. FINDINGS: Image quality: Diagnostic. Lower Chest: No significant findings. ABDOMEN: Liver: No solid mass. Liver measures 22 cm with steatosis. Gallbladder: No radiopaque gallstones or wall thickening. Biliary ducts: No biliary dilation. Pancreas: No ductal dilation. There is minimal fluid surrounding portions of the distal pancreatic body and tail. Mild edema is present the pancreatic head. There is prominent fluid surrounding the duodenal C-loop extending to the pancreatic head. Spleen: Size is within normal limits. Adrenal Glands: No adrenal nodules. Kidneys and Ureters: No hydronephrosis. No solid mass. No complex renal cystic lesion which requires follow up. Stomach and Bowel: There is fluid surrounding the duodenal C-loop as well as the adjacent pancreatic head with mild edema. There is incomplete distention of the sigmoid colon with diverticula. Peritoneum: No abnormal intraperitoneal fluid. No free air. Ventral Wall: No significant ventral hernia. Abdominal Nodes: No retroperitoneal or mesenteric adenopathy by size criteria. Vessels: Aorta and inferior vena cava are normal in size. PELVIS: Pelvic Organs: IUD as well as bilateral adnexal clips. Bladder: No bladder wall thickening, accounting for underdistention. Pelvic Nodes: No enlarged lymph nodes. Miscellaneous: No inguinal hernias are seen. Bones: No aggressive osseous abnormality. IMPRESSION: Fluid is present surrounding the duodenal C-loop extending to the pancreatic head with demonstrates mild edema. Mild peripancreatic fluid is present adjacent to the pancreatic body and/tail without edema within the pancreatic parenchyma within these regions. While findings could be related to primary pancreatitis with secondary inflammation of the duodenum, duodenitis with secondary pancreatitis cannot be excluded. Diverticulosis. Hepatomegaly with steatosis. Dictated by: Maria E Tobias M.D. on 10/05/2023 at 11:51 MDM Narrative Medical decision making narrative: CC: Worsening abdominal pain Complicating co-morbidities: Irritable bowel syndrome history of rectal prolapse Data collected from: patient Medical records reviewed: Patient was seen in the emergency department mid July with abdominal pain, and 3 visits in June and did have to abdominal ultrasounds in June and July Differential considered: Bowel obstruction, constipation, complications than her Rectal surgery, intra-abdominal abscess Exam documented above, pertinent findings include: Significant abdominal pain with moderate distention Lab Test results independently reviewed as above. Pertinent findings: White count is slightly elevated at 11.3 without significant left shift. No significant anemia Chemistries show low-sodium at 1:24 a.m., low potassium 2.4, appropriate creatinine at 0.79. Calcium is slightly low at 8.3 magnesium is low at 1.1. Alk-phos minimally elevated at 149 Lipase is significantly elevated at 7308 Imaging studies independently reviewed: CT scan is consistent with acute pancreatitis likely developing ileus Treatments: Fluids, hydromorphone, Toradol, parenteral potassium and magnesium Re-evaluations:1215 patient is feeling slightly better. We discussed her alcohol use. She is at moderate risk for withdrawal syndrome. Understands the need for hospitalization Discussion: 53-year-old woman with a history of irritable bowel syndrome significant diarrhea all last week presents with increasing abdominal pain and distention. Lab work suggests acute pancreatitis with an elevated lipase at greater than 7000. CT scan corroborates this with inflammation around the pancreas particularly the pancreatic head without evidence of obstruction or pseudocyst. There was no evidence of sepsis or other severe infection. She was responding nicely to initial fluids. We will need hospitalization for pain control secondary to her pancreatitis as well as electrolyte replacement secondary to the severe diarrhea from last week. Patient notes that she does drink too much and reports ?I do come from a long line of alcoholics?. She states she typically has 1-2 [place] alcoholic beverages per night but sometimes we will do more. She does not typically have morning withdrawal symptoms in his never had seizures. Discharge Plan Departure Patient Disposition: Admitted As Inpatient Clinical Impression: Acute hyponatremia, Acute hypokalemia, Hypomagnesemia Acute alcoholic pancreatitis Qualifiers: Acute pancreatitis complication: no infection or necrosis Qualified Code(s): K 85.20 - Alcohol induced acute pancreatitis without necrosis or infection
--- NOTE | 2023-10-05 09:59 | DI.CT.S_ITS ---
PROCEDURE: CT ABDOMEN PELVIS W CON INDICATIONS: abd pain, ? pancreatitis TECHNIQUE: After the administration of intravenous contrast, axial sections acquired from the lung bases to the pubic symphysis. Coronal and sagittal reformats were performed. For radiation dose reduction, the following was used: automated exposure control, adjustment of mA and/or kV according to patient size. COMPARISON: [facility], CT, CT ABDOMEN PELVIS W CON, 07/17/2023, 16:00. FINDINGS: Image quality: Diagnostic. Lower Chest: No significant findings. ABDOMEN: Liver: No solid mass. Liver measures 22 cm with steatosis. Gallbladder: No radiopaque gallstones or wall thickening. Biliary ducts: No biliary dilation. Pancreas: No ductal dilation. There is minimal fluid surrounding portions of the distal pancreatic body and tail. Mild edema is present the pancreatic head. There is prominent fluid surrounding the duodenal C-loop extending to the pancreatic head. Spleen: Size is within normal limits. Adrenal Glands: No adrenal nodules. Kidneys and Ureters: No hydronephrosis. No solid mass. No complex renal cystic lesion which requires follow up. Stomach and Bowel: There is fluid surrounding the duodenal C-loop as well as the adjacent pancreatic head with mild edema. There is incomplete distention of the sigmoid colon with diverticula. Peritoneum: No abnormal intraperitoneal fluid. No free air. Ventral Wall: No significant ventral hernia. Abdominal Nodes: No retroperitoneal or mesenteric adenopathy by size criteria. Vessels: Aorta and inferior vena cava are normal in size. PELVIS: Pelvic Organs: IUD as well as bilateral adnexal clips. Bladder: No bladder wall thickening, accounting for underdistention. Pelvic Nodes: No enlarged lymph nodes. Miscellaneous: No inguinal hernias are seen. Bones: No aggressive osseous abnormality. IMPRESSION: Fluid is present surrounding the duodenal C-loop extending to the pancreatic head with demonstrates mild edema. Mild peripancreatic fluid is present adjacent to the pancreatic body and/tail without edema within the pancreatic parenchyma within these regions. While findings could be related to primary pancreatitis with secondary inflammation of the duodenum, duodenitis with secondary pancreatitis cannot be excluded. Diverticulosis. Hepatomegaly with steatosis. Dictated by: Maria E Tobias M.D. on 10/05/2023 at 11:51 Approved by: Maria E Tobias M.D. on 10/05/2023 at 11:54
[2023-10-05] MEDS: HYDROMORPHONE 1 MG INJ IV ×4 (10:18→22:51)
[2023-10-05] MEDS: KETOROLAC 30 MG/ML VIAL 15 MG IV (10:18)
[2023-10-05] MEDS: SODIUM CHLORIDE 0.9% 1,000 ML 1000 ML IV (10:18)
[2023-10-05] MEDS: ONDANSETRON 4 MG/2 ML INJ IV ×2 (10:18→14:17)
[2023-10-05] MEDS: POTASSIUM CHLORIDE IN WATER 10 MEQ/100 ML PIGGYBACK 100 MEQ IV ×4 (10:19→14:32)
[2023-10-05] MEDS: SODIUM CHLORIDE 0.9% 1,000 ML 150 ML IV ×2 (10:56→17:02)
[2023-10-05] MEDS: MAGNESIUM SULFATE 2 GM/50 ML PIGGYBACK IV (10:56)
[2023-10-05] MEDS: HYDROMORPHONE 0.5 MG INJ IV ×4 (11:18→14:17)
[2023-10-05] MEDS: ACETAMINOPHEN 325 MG TABLET 650 MG PO (15:31)
[2023-10-05] MEDS: OXYCODONE IR 5 MG TABLET PO (15:32)
[2023-10-05] MEDS: NICOTINE 21 MG PATCH TOP (16:56)
--- NOTE | 2023-10-05 17:01 | P.HP_ITS ---
History of Present Illness History of Present Illness Date Patient Seen: 10/05/23 Time Patient Seen: 17:01 Chief complaint: abd/chest pain, nausea Narrative: This is a 53 year old female who presents with abdominal pain. She has been dealing with IBS-(presumed D) and had recent episode of abdominal pain, diarrhea, nausea and vomiting a few days ago. her diarrhea improved with a few doses of loperamide but she had another episode of emesis this morning and worsening abdominal pain. Her abdominal pain is more diffuse, epigastric burning but also cramping sensation throughout. It does not radiate to the back. Emesis is nb/nb. No melena or hematochesia and denies fever or chills. She usually drinks 7-9 white claws or similar drinks daily. She has been admitted for outpatient detox but never to the hospital but has had prior treatment for withdrawal. CT scan showed duodenitis and mild pancreatic inflammation. Lipase was 7308. Sodium was 124 and potassium was 2.4. She was admitted for further management. [facility] Medical History Anxiety (2006) Chickenpox (1977) Chronic back pain (1994) Fibroids (Unknown) Heavy menstrual period (1991) Painful menstrual periods (1991) Endometriosis (1991) Genital warts (1991) Chlamydia (1985) Abnormal Pap smear of cervix (1991) Frequent UTI (Unknown) IBS (irritable bowel syndrome) (2007) Depression (2006) Surgical History Hx of tubal ligation (1994) Hx of tonsillectomy (1978) Family History Father Age: 76 Heart disease Hypertension High cholesterol Mother Mental health problem Grandfather Heart disease Hypertension Grandmother No problems noted. Grandfather No problems noted. Grandmother Cancer Social History household members: family Smoking Status: Current every day smoker alcohol intake: current Meds Home Medications and Allergies Home Medications Medication Instructions Recorded Confirmed Type atorvastatin 40 mg tablet 40 mg PO DAILY 10/05/23 10/05/23 History loperamide 2 mg capsule 2 mg PO 4XD PRN Diarrhea 10/05/23 10/05/23 History losartan 50 mg-hydrochlorothiazide 1 tab PO DAILY 10/05/23 10/05/23 History 12.5 mg tablet omeprazole 20 mg capsule,delayed 20 mg PO BID 10/05/23 10/05/23 History release Allergies Allergy/AdvReac Type Severity Reaction Status Date / Time meperidine [From Demerol] Allergy Severe paralysis Verified 08/15/23 10:53 Penicillins [PENICILLINS] AdvReac Unknown Hives Verified 08/15/23 10:53 amoxicillin AdvReac Hives Verified 08/15/23 10:53 Review of Systems Review of Systems Narrative: All other systems reviewed with the patient and are negative unless otherwise stated. Exam Vital Signs (past 8 hours): - 10/05/23 09:30 10/05/23 09:30 10/05/23 10:00 Pulse Rate 64 Respiratory Rate Blood Pressure 112/66 112/66 Pulse Oximetry 96 Oxygen Delivery Method Oxygen Flow Rate 10/05/23 10:00 10/05/23 10:30 10/05/23 10:30 Pulse Rate 69 73 Respiratory Rate 16 Blood Pressure 121/73 Pulse Oximetry 98 Oxygen Delivery Method Oxygen Flow Rate 10/05/23 10:44 10/05/23 10:44 10/05/23 11:00 Pulse Rate 83 67 Respiratory Rate 15 17 Blood Pressure 122/73 Pulse Oximetry 98 98 Oxygen Delivery Method Oxygen Flow Rate 10/05/23 11:30 10/05/23 11:30 10/05/23 12:00 Pulse Rate 71 Respiratory Rate 13 Blood Pressure 114/66 118/69 Pulse Oximetry 97 Oxygen Delivery Method Oxygen Flow Rate 10/05/23 12:00 10/05/23 12:30 10/05/23 12:31 Pulse Rate 69 72 74 Respiratory Rate 12 18 Blood Pressure Pulse Oximetry 94 95 96 Oxygen Delivery Method Oxygen Flow Rate 10/05/23 12:31 10/05/23 13:00 10/05/23 13:01 Pulse Rate 70 72 Respiratory Rate 13 12 Blood Pressure 100/60 Pulse Oximetry 93 92 Oxygen Delivery Method Oxygen Flow Rate 10/05/23 13:01 10/05/23 13:30 10/05/23 13:58 Pulse Rate 69 Respiratory Rate 13 Blood Pressure 121/66 Pulse Oximetry 94 Oxygen Delivery Method Room Air Oxygen Flow Rate 10/05/23 14:00 10/05/23 15:01 Pulse Rate 71 Respiratory Rate 15 Blood Pressure Pulse Oximetry 94 94 Oxygen Delivery Method Room Air Oxygen Flow Rate 0 Oxygen Delivery Method Room Air Oxygen Flow Rate 0 Narrative Exam Narrative: General:? Patient is well developed and well nourished, in no distress at this time though appears uncomfortable walking around. HEENT:? Normocephalic, atraumatic, extraocular muscles intact, oral pharynx is clear and mucous membranes are moist. Neck: supple and symmetric, trachea is midline, no cervical adenopathy. Negative for JVD Chest:? Normal AP diameter and contour without kyphoscoliosis, no tachypnea, equal chest rise bilaterally. Lungs:? CTA b/l no wheezing rhonchi or rales. Cardio:?RRR no m/r/g. Abdomen: soft, non-distended, primarily epigastric tenderness Musculoskeletal:? Muscle strength and tone are equal within normal limits, no deformity. Extremities: No edema or joint effusions. Skin:? Pale,? Warm to touch,dry and intact without rashes, ulcerations or petechiae.? Objective Labs 10/05/23 08:48 10/05/23 08:48 Labs: Laboratory Results - last 24 hr 10/05/23 08:48 WBC 11.3 H RBC 3.59 L Hgb 12.5 Hct 35.5 L MCV 98.8 MCH 34.8 H MCHC 35.3 RDW 14.7 Plt Count 213 Neut % (Auto) 64.8 Lymph % (Auto) 27.5 [place] % (Auto) 7.2 Eos % (Auto) 0.1 L Baso % (Auto) 0.4 Neut # (Auto) 7300 H Lymph # (Auto) 3100 [place] # (Auto) 800 Eos # (Auto) 0 Baso # (Auto) 0 PT 12.9 H INR 1.1 APTT 26 Sodium 124 L Potassium 2.4 L* Chloride 92 L Carbon Dioxide 28 BUN 8 Creatinine 0.79 Estimated GFR > 60 BUN/Creatinine Ratio 10.1 Glucose 132 H Calcium 8.3 L Magnesium 1.1 L Total Bilirubin 0.7 AST 26 ALT 21 Alkaline Phosphatase 149 H Total Creatine Kinase 77 Troponin I < 0.012 NT-Pro-B Natriuret Pep 287 H Total Protein 6.7 Albumin 3.9 Globulin 2.8 Albumin/Globulin Ratio 1.4 Lipase 7308 H Assessment & Plan Assessment & Plan narrative: 1. Acute alcoholic pancreatitis - likely developed pancreatitis a few days ago, had been unable to drink much or keep much food down - check TG level to rule out alternative cause of pancreatitis - okay for CLD, advance diet as tolerated or if worsening symptoms reduce to NPO - continue IV fluids - CT imaging without biliary pathologies, no AST/ALT elevations or elevated bilirubin to suggest biliary pancreatitis. 2. Hyponatremia - likley hypovolemia - continue NS for IV fluids - repeat BMP ordered for tomorrow 3. Hypokalemia and hypomagnesemia - repleted, continue to follow with repeat chemistries tomorrow. 4. IBS-D - continue loperamide prn 5. Alcohol use - CIWA protocol ordered given history of withdrawal - prn ativan for withdrawal. - seizure precautions. Code: Full, surrogate is patient's mother DVT: Lovenox daily I have utilized all available immediate resources to obtain, update, or review the patient's current medications. Dispo: patient admitted under inpatient status. likely will discharge home. Additional history obtained via discussions with the ER provider. These discussions contributed to the creation of the above assessment and plan. I have reviewed patient's presenting documentation, labs, and imaging personally. Quality VTE Deep Vein Thrombosis/Pulmonary Embolism Present on Admission: No
[2023-10-05 17:29] LABS: Triglycerides 112 mg/dL (35-150)
[2023-10-05] MEDS: OXYCODONE IR 10 MG TABLET PO (18:04)
[2023-10-05] MEDS: PANTOPRAZOLE DR 20 MG TABLET PO (20:06)
[2023-10-05] MEDS: MELATONIN 3 MG TABLET 9 MG PO (20:06)
[2023-10-05] MEDS: SODIUM CHLORIDE 0.9% FLUSH 10 ML IV (20:06)
[2023-10-06] VITALS (7 sets, daily range): BP systolic 101–125; BP diastolic 57–77; PULSE 70–82; RESP 16–20; TEMP 35.8–36.6; O2SAT 95–98
[2023-10-06] MEDS: SODIUM CHLORIDE 0.9% 1,000 ML 150 ML IV ×2 (01:18→16:22)
[2023-10-06] MEDS: OXYCODONE IR 5 MG TABLET PO (01:46)
[2023-10-06 04:59] LABS: Add Manual Diff / Slide Review NO; Basophils Absolute Auto 0 /uL (0-100); Basophils Percent Auto 0.3 % (0-2); Eosinophils Absolute Auto 0 /uL (0-450); Hematocrit 31.7 % (36-46); Hemoglobin 11.1 g/dL (12.0-16.0); Lymphocytes Absolute Auto 1200 /uL (1100-4500); Lymphocytes Percent Auto 12.4 % (25-40); Mean Corpuscular HGB Conc 35.1 % (30-36); Mean Corpuscular Hemoglobin 35.2 PG (26-34); Mean Corpuscular Volume 100.3 fL (80-100); Monocytes Absolute Auto 600 /uL (0-900); Monocytes Percent Auto 5.9 % (3-14); Neutrophils Absolute Auto 8100 /uL (1500-7000); Neutrophils Percent Auto 81.4 % (50-75); Platelet Count 171 X10^3/uL (150-400); Red Blood Cell Count 3.16 X10^6/uL (4.0-5.2); Red Cell Distribution Width 14.9 % (11.6-14.8); White Blood Cell Count 9.9 X10^3/uL (4.5-11.0)
[2023-10-06 05:26] LABS: Alanine Aminotransferase 18 IU/L (<35); Albumin 3.4 g/dL (3.5-5.0); Albumin Globulin Ratio 1.3 (1.0-2.8); Alkaline Phosphatase 126 U/L (38-126); Aspartate Aminotransferase 24 IU/L (14-36); BUN Creatinine Ratio 9.5 (6-22); Bilirubin Total 0.7 mg/dL (0.2-1.3); Blood Urea Nitrogen 6 mg/dL (7-17); Calcium 7.7 mg/dL (8.4-10.2); Carbon Dioxide 24 mmol/L (22-32); Chloride 101 mmol/L (98-107); Estimated Glomerular Filt Rate > 60 mL/min (>60); Globulin 2.7 g/dL (1.7-4.1); Glucose 97 mg/dL (70-100); HEMOLYSIS < 15 (0-50); Magnesium 1.8 mg/dL (1.6-2.3); Potassium 3.2 mmol/L (3.4-5.1); Sodium 130 mmol/L (137-145); Total Protein 6.1 g/dL (6.3-8.2)
[2023-10-06] MEDS: ACETAMINOPHEN 325 MG TABLET 650 MG PO ×2 (06:07→21:30)
[2023-10-06] MEDS: HYDROMORPHONE 1 MG INJ IV (08:21)
[2023-10-06] MEDS: ENOXAPARIN 40 MG/0.4 ML SYRINGE SUBCUT (08:21)
[2023-10-06] MEDS: PANTOPRAZOLE DR 20 MG TABLET PO ×2 (08:21→21:30)
[2023-10-06] MEDS: FOLIC ACID 1 MG TABLET PO (08:22)
[2023-10-06] MEDS: MULTIVITAMIN 1 TABLET 1 TAB PO (08:22)
[2023-10-06] MEDS: THIAMINE 100 MG TABLET PO (08:22)
[2023-10-06] MEDS: NICOTINE 21 MG PATCH TOP (08:22)
[2023-10-06] MEDS: HYDROMORPHONE 2 MG INJ IV ×4 (09:51→18:55)
--- NOTE | 2023-10-06 11:47 | CM.DANOTE ---
DCP Assessment Note Pt is a 53yo F here with acute alcoholic pancreatitis. PMH of IBS. PCP Stephenie Liriano Payer [employer] PPO and self pay POTATO CHIP FRIER reviewed EMR. Per hospitalist in morning rounds, working on controlling pt's pain today and clears, hopeful to advance diet tomorrow. Pt has been ambulating halls. POTATO CHIP FRIER met with pt, mother, and friend in room. Pt pleasant and chatty. reports pain is better today. hopeful to dc home tomorrow. Reports living indep in [place]. Pt reports long hx of alcohol treatment, periods of sobriety, and periods of relapse. Over the last few months she's had 7-9 alcoholic beverages most days, mainly white claws. Has not had as much lately due to GI concerns. Reports GI doctor prescribed her med that was too expensive and made her nauseated, plans to follow up with her to see about new meds. Pt reports history of many inpt and op alcohol use treatment. Hx of AA. reports no other illicit Reports has been looking for a therapist in area, waiting on calls back from a few. POTATO CHIP FRIER provided website/local MH resources and a good RX coupon. Pt appreciative. Reports hx of [facility], denies need for resources but plans to restart with their services. Reports does not want AA resource and is very familiar with the local programs. Mother reports she is a good local support and will do her best to help support in her sobriety. Pt denies other CM needs at this time P: anticipate home once able to tolerate a normal diet (Tomorrow?) and to f/u with OP MH/[facility] providers. No identified barriers to safe dc home. Family to transport. CM team will continue to follow as needed. MIQUEL Watson Discharge Planning/Care Management CM Discharge Assessment Start: 10/06/23 11:46 Freq: Status: Active Protocol: Document 10/06/23 11:46 ROJELIO (Rec: 10/06/23 11:47 [id number]) Discharge Planning Assessment Assigned Sql Application Developer MIQUEL Zambrano DPOA/Assigned Designee Name mother Siddiqui Contact Information [phone] Advance Directives? No History Provided By Patient Prior Living Arrangements Apartment/Condo Independent with ADL's Yes Is patient alert and oriented? Yes Barriers to Discharge No Discharge Plan Home Transportation Arrangement family in [place] Referrals Initiated None needed Whiteboard Updated in Patient Room with Yes name and ext. # of Sql Application Developer Review Status In Process Please Provide Date Initial DC 10/06/23 Assessment Was Performed Next Review Type Continued Stay Review
--- NOTE | 2023-10-06 12:17 | PM.PN.1 ---
Subjective Subjective Interval history: This is a 53-year-old female admitted with probable alcoholic pancreatitis. She has continued abdominal pain, though it is slightly improved. Tolerating a minimal amount of clears today. Exam Vital Signs (past 8 hours): - 10/06/23 05:54 10/06/23 05:54 10/06/23 09:00 Temperature 97.8 F 96.4 F L Pulse Rate 70 72 Respiratory Rate 16 20 Blood Pressure 109/69 102/61 Pulse Oximetry 95 95 98 Oxygen Delivery Method Room Air Oxygen Flow Rate 0 0 0 Oxygen Delivery Method Room Air Oxygen Flow Rate 0 Narrative Exam Narrative: General:? Patient is well developed and well nourished, in no distress at this time though appears uncomfortable walking around. HEENT:? Normocephalic, atraumatic, extraocular muscles intact, oral pharynx is clear and mucous membranes are moist. Neck: supple and symmetric, trachea is midline, no cervical adenopathy. Negative for JVD Chest:? Normal AP diameter and contour without kyphoscoliosis, no tachypnea, equal chest rise bilaterally. Lungs:? CTA b/l no wheezing rhonchi or rales. Cardio:?RRR no m/r/g. Abdomen: soft, non-distended, primarily epigastric tenderness Musculoskeletal:? Muscle strength and tone are equal within normal limits, no deformity. Extremities: No edema or joint effusions. Skin:? Pale,? Warm to touch,dry and intact without rashes, ulcerations or petechiae.? Objective Labs 10/06/23 04:46 10/06/23 04:46 Labs: Laboratory Results - last 24 hr 10/05/23 10/06/23 17:10 04:46 WBC 9.9 RBC 3.16 L Hgb 11.1 L Hct 31.7 L MCV 100.3 H MCH 35.2 H MCHC 35.1 RDW 14.9 H Plt Count 171 Neut % (Auto) 81.4 H Lymph % (Auto) 12.4 L [place] % (Auto) 5.9 Eos % (Auto) 0.0 L Baso % (Auto) 0.3 Neut # (Auto) 8100 H Lymph # (Auto) 1200 [place] # (Auto) 600 Eos # (Auto) 0 Baso # (Auto) 0 Sodium 130 L Potassium 3.2 L Chloride 101 Carbon Dioxide 24 BUN 6 L Creatinine 0.63 Estimated GFR > 60 BUN/Creatinine Ratio 9.5 Glucose 97 Calcium 7.7 L Magnesium 1.8 Total Bilirubin 0.7 AST 24 ALT 18 Alkaline Phosphatase 126 Total Protein 6.1 L Albumin 3.4 L Globulin 2.7 Albumin/Globulin Ratio 1.3 Triglycerides 112 PFSH Medical History Anxiety (2006) Chickenpox (1977) Chronic back pain (1994) Fibroids (Unknown) Heavy menstrual period (1991) Painful menstrual periods (1991) Endometriosis (1991) Genital warts (1991) Chlamydia (1985) Abnormal Pap smear of cervix (1991) Frequent UTI (Unknown) IBS (irritable bowel syndrome) (2007) Depression (2006) Surgical History Hx of tubal ligation (1994) Hx of tonsillectomy (1978) Family History Father Age: 76 Heart disease Hypertension High cholesterol Mother Mental health problem Grandfather Heart disease Hypertension Grandmother No problems noted. Grandfather No problems noted. Grandmother Cancer Social History household members: family Smoking Status: Current every day smoker alcohol intake: current Assessment & Plan Assessment & Plan narrative: 1. Acute alcoholic pancreatitis - likely developed pancreatitis a few days prior to admission, she had been unable to drink much or keep much food down -triglyceride level was unremarkable -continue CLD, advance diet as tolerated or if worsening symptoms reduce to NPO - continue IV fluids today as she remains mildly hyponatremic. - CT imaging without biliary pathologies, no AST/ALT elevations or elevated bilirubin to suggest biliary pancreatitis. 2. Hyponatremia - likley hypovolemia, improved thus far from 124 to 130 today. - continue NS for IV fluids - repeat BMP ordered for tomorrow 3. Hypokalemia and hypomagnesemia - repleted with 40 meQ IV potassium today, continue to follow with repeat chemistries tomorrow. Mg improved to 1.8. 4. IBS-D - continue loperamide prn 5. Alcohol use - CIWA protocol ordered given history of withdrawal - prn ativan for withdrawal. - seizure precautions. Code: Full, surrogate is patient's mother DVT: Lovenox daily I have utilized all available immediate resources to obtain, update, or review the patient's current medications. Dispo: patient admitted under inpatient status. likely will discharge home in a couple more days, pending improvement in pain and diet tolerance. Additional history obtained via discussions with case management and bedside staff. These discussions contributed to the creation of the above assessment and plan. I have reviewed patient's presenting documentation, labs, and imaging personally. Quality VTE Deep Vein Thrombosis/Pulmonary Embolism Present on Admission: No
[2023-10-06] MEDS: POTASSIUM CHLORIDE IN WATER 10 MEQ/100 ML PIGGYBACK 100 MEQ IV (13:14)
[2023-10-06] MEDS: POTASSIUM CHLORIDE IN WATER 10 MEQ/100 ML PIGGYBACK 75 MEQ IV (14:19)
--- NOTE | 2023-10-06 15:25 | DIET.CONS ---
Dietary Consultation Note Admission Date: 10/05/2023 12:49 Assessment: 53 y F admitted for probable alcoholic pancreatitis. Nutrition screened for low MNA. Met with pt in room. Reports little po intake past 4-5 days before admission, bites of foods/snack only, <50% of EER. On Day 2 of CLD. Reports up and down appetite correlating with IBS-D symptoms the past 4-6 wks. Reports rx medication for IBS-D was not helpful. Per H&P, intake of 7-9 white claws or similar drink daily. Nutrition focused physical exam: No significant findings Ht: 175.26 cm Wt: 70.307 kg BMI: 22.8 UBW: 74.843 kg 06/30/23 (-6% loss in 3.5 months, not significant) Last BM: 10/06/23 (10/06/23 12:54) MNA: 10 Matt Score: 21 Diet: 10/05/23 Lunch Clear Liquid Diet Diet Modifications: Nutrition Percent Meal Consumed 75% 10/06/23 12:54 Percent Meal Consumed 100% 10/06/23 09:28 Percent Meal Consumed 100% 10/05/23 18:00 Labs: RBC 3.16 X10^6/uL (4.0-5.2) L 10/06/23 04:46 Hgb 11.1 g/dL (12.0-16.0) L 10/06/23 04:46 Hct 31.7 % (36-46) L 10/06/23 04:46 Creatinine 0.63 mg/dL (0.52-1.04) 10/06/23 04:46 NT-Pro-B Natriuret Pep 287 pg/mL (<125) H 10/05/23 08:48 Nutrition Diagnosis: Inadequate energy intake r/t decreased ability to consume sufficient intake in setting of altercations in GI function aeb 6-7 days <50% of EER, acute alcoholic pancreatitis Interventions: 1. Clears w/ clear ONS prn 2. Diet advancement as tolerated Monitoring/Evaluations: diet advancement, po intakes, ONS as needed Electronically Signed by: Antonette Ortiz 10/06/23 15:25 Clinical Dietitian [address] [address]
[2023-10-06] MEDS: POTASSIUM CHLORIDE IN WATER 10 MEQ/100 ML PIGGYBACK 50 MEQ IV ×2 (15:56→18:34)
[2023-10-06] MEDS: OXYCODONE IR 10 MG TABLET PO (21:30)
[2023-10-06] MEDS: MELATONIN 3 MG TABLET 9 MG PO (21:30)
[2023-10-06] MEDS: SODIUM CHLORIDE 0.9% FLUSH 10 ML IV (21:31)
[2023-10-07] MEDS: SODIUM CHLORIDE 0.9% 1,000 ML 150 ML IV (01:26)
[2023-10-07 05:07] LABS: Add Manual Diff / Slide Review NO; Basophils Absolute Auto 100 /uL (0-100); Basophils Percent Auto 0.8 % (0-2); Eosinophils Absolute Auto 0 /uL (0-450); Hematocrit 28.4 % (36-46); Hemoglobin 9.9 g/dL (12.0-16.0); Lymphocytes Absolute Auto 1200 /uL (1100-4500); Lymphocytes Percent Auto 14.8 % (25-40); Mean Corpuscular HGB Conc 34.8 % (30-36); Mean Corpuscular Hemoglobin 35.6 PG (26-34); Mean Corpuscular Volume 102.3 fL (80-100); Monocytes Absolute Auto 500 /uL (0-900); Monocytes Percent Auto 6.8 % (3-14); Neutrophils Absolute Auto 6200 /uL (1500-7000); Neutrophils Percent Auto 77.6 % (50-75); Platelet Count 145 X10^3/uL (150-400); Red Blood Cell Count 2.77 X10^6/uL (4.0-5.2); Red Cell Distribution Width 14.8 % (11.6-14.8); White Blood Cell Count 7.9 X10^3/uL (4.5-11.0)
[2023-10-07 05:21] LABS: Alanine Aminotransferase 14 IU/L (<35); Albumin 2.9 g/dL (3.5-5.0); Albumin Globulin Ratio 1.1 (1.0-2.8); Alkaline Phosphatase 108 U/L (38-126); Aspartate Aminotransferase 20 IU/L (14-36); BUN Creatinine Ratio 5.9 (6-22); Bilirubin Total 0.8 mg/dL (0.2-1.3); Blood Urea Nitrogen 3 mg/dL (7-17); Calcium 7.5 mg/dL (8.4-10.2); Carbon Dioxide 24 mmol/L (22-32); Chloride 105 mmol/L (98-107); Estimated Glomerular Filt Rate > 60 mL/min (>60); Globulin 2.6 g/dL (1.7-4.1); Glucose 97 mg/dL (70-100); HEMOLYSIS < 15 (0-50); Magnesium 1.3 mg/dL (1.6-2.3); Potassium 3.2 mmol/L (3.4-5.1); Sodium 132 mmol/L (137-145); Total Protein 5.5 g/dL (6.3-8.2)
[2023-10-07 06:00] VITALS: BP 99/49; PULSE 70; RESP 16; TEMP 36.6; O2SAT 97
[2023-10-07] MEDS: ACETAMINOPHEN 325 MG TABLET 650 MG PO (06:06)
[2023-10-07] MEDS: PANTOPRAZOLE DR 20 MG TABLET PO (06:06)
--- NOTE | 2023-10-07 07:53 | PM.PN.1 ---
Subjective Subjective Interval history: Interval history: This is a 53-year-old female admitted with probable alcoholic pancreatitis. She has continued abdominal pain, though it is slightly improved. Tolerating a minimal amount of clears today. S: Exam Vital Signs (past 8 hours): - 10/07/23 06:00 10/07/23 06:00 Temperature 97.9 F Pulse Rate 70 Respiratory Rate 16 Blood Pressure 99/49 L Pulse Oximetry 97 97 Oxygen Delivery Method Room Air Oxygen Flow Rate 0 0 Oxygen Delivery Method Room Air Oxygen Flow Rate 0 Narrative Exam Narrative: Objective Labs 10/07/23 04:35 10/07/23 04:35 Labs: Laboratory Results - last 24 hr 10/07/23 04:35 WBC 7.9 RBC 2.77 L Hgb 9.9 L Hct 28.4 L MCV 102.3 H MCH 35.6 H MCHC 34.8 RDW 14.8 Plt Count 145 L Neut % (Auto) 77.6 H Lymph % (Auto) 14.8 L [place] % (Auto) 6.8 Eos % (Auto) 0.0 L Baso % (Auto) 0.8 Neut # (Auto) 6200 Lymph # (Auto) 1200 [place] # (Auto) 500 Eos # (Auto) 0 Baso # (Auto) 100 Sodium 132 L Potassium 3.2 L Chloride 105 Carbon Dioxide 24 BUN 3 L Creatinine 0.51 L Estimated GFR > 60 BUN/Creatinine Ratio 5.9 L Glucose 97 Calcium 7.5 L Magnesium 1.3 L Total Bilirubin 0.8 AST 20 ALT 14 Alkaline Phosphatase 108 Total Protein 5.5 L Albumin 2.9 L Globulin 2.6 Albumin/Globulin Ratio 1.1 [facility] Medical History Anxiety (2006) Chickenpox (1977) Chronic back pain (1994) Fibroids (Unknown) Heavy menstrual period (1991) Painful menstrual periods (1991) Endometriosis (1991) Genital warts (1991) Chlamydia (1985) Abnormal Pap smear of cervix (1991) Frequent UTI (Unknown) IBS (irritable bowel syndrome) (2007) Depression (2006) Surgical History Hx of tubal ligation (1994) Hx of tonsillectomy (1978) Family History Father Age: 76 Heart disease Hypertension High cholesterol Mother Mental health problem Grandfather Heart disease Hypertension Grandmother No problems noted. Grandfather No problems noted. Grandmother Cancer Social History household members: family Smoking Status: Current every day smoker alcohol intake: current Assessment & Plan Assessment & Plan narrative: 1. Acute alcoholic pancreatitis, present on admission and active. - likely developed pancreatitis a few days prior to admission, she had been unable to drink much or keep much food down -triglyceride level was unremarkable -continue CLD, advance diet as tolerated or if worsening symptoms reduce to NPO - continue IV fluids today as she remains mildly hyponatremic. - CT imaging without biliary pathologies, no AST/ALT elevations or elevated bilirubin to suggest biliary pancreatitis. 2. Hyponatremia, present on admission and active. - likley hypovolemia, improved thus far from 124 to 130 today. - continue NS for IV fluids - repeat BMP ordered for tomorrow 3. Hypokalemia and hypomagnesemia, present on admission and active. - repleted with 40 meQ IV potassium today, continue to follow with repeat chemistries tomorrow. Mg improved to 1.8. 4. IBS-D, present on admission and active. - continue loperamide prn 5. Alcohol use disorder, present on admission and active. - CIWA protocol ordered given history of withdrawal - prn ativan for withdrawal. - seizure precautions. Code: Full, surrogate is patient's mother DVT: Lovenox daily Quality VTE Deep Vein Thrombosis/Pulmonary Embolism Present on Admission: No
[2023-10-07 08:00] VITALS: BP 100/52; PULSE 71; RESP 16; TEMP 36.8; O2SAT 96
[2023-10-07] MEDS: THIAMINE 100 MG TABLET PO (08:30)
[2023-10-07] MEDS: ENOXAPARIN 40 MG/0.4 ML SYRINGE SUBCUT (08:30)
[2023-10-07] MEDS: NICOTINE 21 MG PATCH TOP (08:30)
[2023-10-07] MEDS: MULTIVITAMIN 1 TABLET 1 TAB PO (08:30)
[2023-10-07] MEDS: FOLIC ACID 1 MG TABLET PO (08:30)
--- NOTE | 2023-10-07 09:15 | P.DS_ITS ---
History of Present Illness History of Present Illness Chief complaint: abd/chest pain, nausea Narrative: From H&P: This is a 53 year old female who presents with abdominal pain. She has been dealing with IBS-(presumed D) and had recent episode of abdominal pain, diarrhea, nausea and vomiting a few days ago. her diarrhea improved with a few doses of loperamide but she had another episode of emesis this morning and worsening abdominal pain. Her abdominal pain is more diffuse, epigastric burning but also cramping sensation throughout. It does not radiate to the back. Emesis is nb/nb. No melena or hematochesia and denies fever or chills. She usually drinks 7-9 white claws or similar drinks daily. She has been admitted for outpatient detox but never to the hospital but has had prior treatment for withdrawal. CT scan showed duodenitis and mild pancreatic inflammation. Lipase was 7308. Sodium was 124 and potassium was 2.4. She was admitted for further management. Discharge Providers Provider Date of admission: 10/05/23 12:49 Discharge Date: 10/07/23 Primary care physician: Stephenie Bear MD Consults: None Discharge provider: Rudi Mckeon MD Summary Hospital Course Discharge Diagnosis: 1. Acute alcoholic pancreatitis, present on admission and improved. - likely developed pancreatitis a few days prior to admission, she had been unable to drink much or keep much food down - CT imaging without biliary pathologies, no AST/ALT elevations or elevated bilirubin to suggest biliary pancreatitis. 2. Hyponatremia, present on admission and improved. - likley hypovolemia, improved with saline (solute deficiency). 3. Hypokalemia and hypomagnesemia, present on admission and improved. - repleted with 40 meQ IV potassium today, continue to follow with repeat chemistries tomorrow. Mg improved to 1.8. 4. IBS-D, present on admission and stable. - continue loperamide prn 5. Alcohol use, present on admission and stable. - no withdrawal Hospital Course: She was admitted with acute alcohol-induced pancreatitis and improved with typical care with bowel rest and analgesia as well as IV fluids. She also had evidence of hypovolemic hyponatremia and solid deficiency which improved with saline administration. She was hypokalemic and had low magnesium and these were both replaced and stabilized. On the day of discharge she was able to advance diet and felt comfortable and had resolution of pain. She was felt to be stable. She was given an additional dose of oral potassium on the day of discharge prior to leaving. Her lipase was 196 at the time of discharge. She does not tend to stopped drinking and has had periods of sobriety in the past. She has gone to AA meetings in the past we will likely pursue this and look for a sponsor. Status at Discharge Cognitive/behavioral status at discharge: oriented Functional status at discharge: independent ambulation Overall status at discharge: patient is back to baseline Time Spent with Patient Time spent: Greater than 30 minutes Exam Vital Signs (past 8 hours): - 10/07/23 06:00 10/07/23 06:00 10/07/23 08:00 Temperature 97.9 F 98.2 F Pulse Rate 70 71 Respiratory Rate 16 16 Blood Pressure 99/49 L 100/52 L Pulse Oximetry 97 97 96 Oxygen Delivery Method Room Air Oxygen Flow Rate 0 0 0 Oxygen Delivery Method Room Air Oxygen Flow Rate 0 Narrative Exam Narrative: NAD, alert and oriented. Fluent speech. Lungs are clear, normal rate and effort. Heart is regular, no murmur gallop or rub. Abdomen is soft, non distended. Extremities are free of edema. Objective Imaging CT scan - abdomen: Radiologist's impression: Fluid is present surrounding the duodenal C-loop extending to the pancreatic head with demonstrates mild edema. Mild peripancreatic fluid is present adjacent to the pancreatic body and/tail without edema within the pancreatic parenchyma within these regions. While findings could be related to primary pancreatitis with secondary inflammation of the duodenum, duodenitis with secondary pancreatitis cannot be excluded. Diverticulosis. Hepatomegaly with steatosis. Labs 10/07/23 04:35 10/07/23 04:35 Labs: Laboratory Results - last 24 hr 10/07/23 04:35 WBC 7.9 RBC 2.77 L Hgb 9.9 L Hct 28.4 L MCV 102.3 H MCH 35.6 H MCHC 34.8 RDW 14.8 Plt Count 145 L Neut % (Auto) 77.6 H Lymph % (Auto) 14.8 L [place] % (Auto) 6.8 Eos % (Auto) 0.0 L Baso % (Auto) 0.8 Neut # (Auto) 6200 Lymph # (Auto) 1200 [place] # (Auto) 500 Eos # (Auto) 0 Baso # (Auto) 100 Sodium 132 L Potassium 3.2 L Chloride 105 Carbon Dioxide 24 BUN 3 L Creatinine 0.51 L Estimated GFR > 60 BUN/Creatinine Ratio 5.9 L Glucose 97 Calcium 7.5 L Magnesium 1.3 L Total Bilirubin 0.8 AST 20 ALT 14 Alkaline Phosphatase 108 Total Protein 5.5 L Albumin 2.9 L Globulin 2.6 Albumin/Globulin Ratio 1.1 [facility] Medical History Anxiety (2006) Chickenpox (1977) Chronic back pain (1994) Fibroids (Unknown) Heavy menstrual period (1991) Painful menstrual periods (1991) Endometriosis (1991) Genital warts (1991) Chlamydia (1985) Abnormal Pap smear of cervix (1991) Frequent UTI (Unknown) IBS (irritable bowel syndrome) (2007) Depression (2006) Surgical History Hx of tubal ligation (1994) Hx of tonsillectomy (1978) Family History Father Age: 76 Heart disease Hypertension High cholesterol Mother Mental health problem Grandfather Heart disease Hypertension Grandmother No problems noted. Grandfather No problems noted. Grandmother Cancer Social History household members: family Smoking Status: Current every day smoker alcohol intake: current Discharge Assessment & Plan Assessment and Plan Assessment: 1. Acute alcoholic pancreatitis, present on admission and improved. - likely developed pancreatitis a few days prior to admission, she had been unable to drink much or keep much food down - CT imaging without biliary pathologies, no AST/ALT elevations or elevated bilirubin to suggest biliary pancreatitis. 2. Hyponatremia, present on admission and improved. - likley hypovolemia, improved with saline (solute deficiency). 3. Hypokalemia and hypomagnesemia, present on admission and improved. - repleted with 40 meQ IV potassium today, continue to follow with repeat chemistries tomorrow. Mg improved to 1.8. 4. IBS-D, present on admission and stable. - continue loperamide prn 5. Alcohol use, present on admission and stable. - no withdrawal Plan of Treatment: Discharge home, no other change in medications. Alcohol cessation and sobriety are encouraged and thoughts for different approaches were discussed in detail with the patient. Discharge Plan Discharge Plan Patient Disposition: Home Provider Discharge Comment: Stable for discharge home. Intends to start AA meetings. Discharge orders & Medications Prescriptions: Continued atorvastatin 40 mg tablet 40 mg PO DAILY loperamide 2 mg capsule 2 mg PO 4XD PRN (Reason: Diarrhea) omeprazole 20 mg capsule,delayed release(DR/EC) 20 mg PO BID losartan-hydrochlorothiazide 50-12.5 mg tablet 1 tab PO DAILY Medication counseling provided by Pharmacist: No Follow up/Referrals: Stephenie Bear MD [Primary Care Provider] - Discharge Health Status Multidrug resistant organism: No MDRO Diet/Activity/Treatments Diet: Diet as Tolerated Visit Report/Discharge Packet Instructions: DI for Pancreatitis, DI for Alcohol Use Disorder Stand Alone Forms: Patient Portal/API Discharge Data Primary Care Provider: Stephenie Bear Quality VTE Deep Vein Thrombosis/Pulmonary Embolism Present on Admission: No
[2023-10-07] MEDS: POTASSIUM CHLORIDE 20 MEQ TAB 40 MEQ PO (09:26)
--- NOTE | 2023-10-07 09:33 | CM.DPNOTE ---
DCP Note GLASS PULVERIZER EQUIPMENT OPERATOR reviewed EMR. Per chart review, pt medically cleared to dc home. GLASS PULVERIZER EQUIPMENT OPERATOR met with pt briefly in room. Continues to deny [facility] resources/MH resources/any other DCP needs. P: home with family and friend support today. Pt reports she will f/u with GI doc, AA, and will continue to pursue MH counseling. CM team will follow as needed. MIQUEL Watson
[2023-10-07 09:42] LABS: Lipase 196 U/L (23-300)
== END 2023-10-07 09:40 | disposition home or self-care (01) | DRG 439 ==
LOC: ED 12:16 → AC 12:50
PROVIDERS: Hospitalist; Admitting Provider Internal Medicine; Emergency Provider Emergency Medicine; PCP Family Medicine; Referring Provider Emergency Medicine; Visit Provider Internal Medicine
DX: K85.20 Alcohol induced acute pancreatitis without necrosis or infection (principal); E87.1 Hypo-osmolality and hyponatremia; E87.6 Hypokalemia; E83.42 Hypomagnesemia; K58.0 Irritable bowel syndrome with diarrhea; F10.90 Alcohol use, unspecified, uncomplicated; E86.1 Hypovolemia
CPT/HCPCS: 36415; 71045; 74177; 80053; 82550; 83690; 83735; 83880; 84478; 84484; 85025; 85610; 85730; 93005; 96365; 96366; 96368; 96375; 96376; 99284; J1170; J1650; J1885; J2405; J3475; Q9967

== ENCOUNTER → 2023-11-16 11:02 | Outpatient (CLI) | payer OTHER, SELFPAY ==
[2023-10-05 13:58] VITALS: BMI 22.8
== END ==
PROVIDERS: PCP Family Medicine; Visit Provider Nurse Practitioner Family
DX: R30.0 Dysuria (principal)
CPT/HCPCS: 87077; 87086; 87186

== ENCOUNTER → 2024-02-16 11:11 | Outpatient (CLI) | payer OTHER, SELFPAY ==
[2023-10-05 13:58] VITALS: BMI 22.8
== END ==
PROVIDERS: PCP Family Medicine; Visit Provider Physician Assistant
DX: R30.0 Dysuria (principal); N30.01 Acute cystitis with hematuria
CPT/HCPCS: 87077; 87086; 87186

== ENCOUNTER → 2025-01-07 12:06 | Outpatient (CLI) | payer MEDICAID, SELFPAY ==
[2023-10-05 13:58] VITALS: BMI 22.8
--- NOTE | 2025-01-07 12:11 | DI.RAD.S_ITS ---
PROCEDURE: XR LUMBAR SPINE 2-3V INDICATIONS: LOW BACK PAIN TECHNIQUE: 3 views of the lumbar spine were acquired. COMPARISON: Merged With [facility], , XR LUMBAR SPINE 2-3V, 06/10/2022, 17:10. FINDINGS: Bones: 5 [id number] vertebrae are present. There is slight leftward curvature with apex at L2-3. Multilevel degenerative disc and foraminal narrowing are present most severe at L4-5 and L5-S1. Minimal interval progression compared to 2022. Multilevel trace retrolisthesis is present. No vertebral body compression fractures. No suspicious bony lesions. Soft tissues: Overlying bowel gas pattern is normal. No suspicious soft tissue calcifications. IMPRESSION: Multilevel degenerative disc and foraminal narrowing most severe at L4-5, L5-S1. Dictated by: Maria E Tobias M.D. on 01/07/2025 at 17:13 Approved by: Maria E Tobias M.D. on 01/07/2025 at 17:14
== END ==
LOC: RAD 12:09
PROVIDERS: PCP Physician Assistant; Referring Provider Physician Assistant; Visit Provider Physician Assistant
DX: M51.360 Other intervertebral disc degeneration, lumbar region with discogenic back pain only (principal); M51.370 Other intervertebral disc degeneration, lumbosacral region with discogenic back pain only; M48.061 Spinal stenosis, lumbar region without neurogenic claudication; M48.07 Spinal stenosis, lumbosacral region
CPT/HCPCS: 72100

== ENCOUNTER 2025-01-25 15:10 | Inpatient (IN) | payer MEDICAID, SELFPAY ==
[2023-10-05 13:58] VITALS: BMI 22.8
[2025-01-25] VITALS (18 sets, daily range): BP systolic 111–170; BP diastolic 72–107; PULSE 68–123; RESP 18–24; TEMP 36.7–37; O2SAT 94–99; BMI 21.2
--- NOTE | 2025-01-25 15:43 | EKG_ITS ---
[id number] [address] Test Date: 2025-01-25 Pat Name: Ines Novoa Department: Room: Gender: Female Component Engineer: IDANIA : [id number] Requested By: Order Number: [id number] Reading MD: Ricki Reese MD Measurements Intervals [place] Rate: 116 P: 72 AL: QRS: 56 QRSD: 72 T: 265 QT: 216 QTc: 300 Interpretive Statements Atrial flutter ST & T wave abnormality, consider inferior ischemia Electronically Signed On 01-26-2025 7:37:44 PDT by Ricki Reese MD
[2025-01-25 16:01] LABS: Add Manual Diff / Slide Review NO; Hematocrit 41.0 % (36-46); Hemoglobin 14.2 g/dL (12.0-16.0); Lymphocytes Absolute Auto 1400 /uL (1100-4500); Mean Corpuscular HGB Conc 34.7 % (30-36); Mean Corpuscular Hemoglobin 33.9 PG (26-34); Mean Corpuscular Volume 97.8 fL (80-100); Platelet Count 345 X10^3/uL (150-400)
[2025-01-25] MEDS: ONDANSETRON 4 MG/2 ML INJ IV (16:09)
[2025-01-25] MEDS: SODIUM CHLORIDE 0.9% 1,000 ML 1000 ML IV (16:09)
--- NOTE | 2025-01-25 16:15 | PC.NURSE ---
patient reporting abdominal pain and nausea which started last night and into this morning pt reports last drink was yesterday night. chronic pancreatitis reported
[2025-01-25 16:16] LABS: Alanine Aminotransferase 32 IU/L (<35); Albumin 4.6 g/dL (3.5-5.0); Albumin Globulin Ratio 1.3 (1.0-2.8); Alkaline Phosphatase 212 U/L (38-126); Blood Urea Nitrogen 18 mg/dL (7-17); Calcium 10.1 mg/dL (8.4-10.2); Carbon Dioxide 18 mmol/L (22-32); Chloride 99 mmol/L (98-107); Estimated Glomerular Filt Rate > 60 mL/min (>60); Globulin 3.5 g/dL (1.7-4.1); Glucose 111 mg/dL (70-99); HEMOLYSIS < 15 (0-50); Potassium 4.1 mmol/L (3.4-5.1); Sodium 132 mmol/L (137-145); Total Protein 8.1 g/dL (6.3-8.2)
--- NOTE | 2025-01-25 16:21 | ED_ITS ---
HPI - Abdominal Pain General Chief Complaint: Abdominal Pain Stated Complaint: per pt pancreatitis attack Time Seen by Provider: 01/25/25 15:57 Source: patient Mode of arrival: Ambulatory History of Present Illness HPI narrative: Patient here for abdominal pain and vomiting. Patient has history of alcohol pancreatitis. Last drank alcohol last night around midnight. Pain and vomiting started last night around midnight. Denies any fall or injury. No seizure. Patient is awake alert orient x4. Related Data Home Medications ?Medication ?Instructions ?Recorded ?Confirmed atorvastatin 40 mg tablet 40 mg PO DAILY 10/05/2301/05 loperamide 2 mg capsule 2 mg PO 4XD PRN Diarrhea 04/2901/25/25 losartan 50 mg-hydrochlorothiazide 1 tab PO DAILY 04/2901/25/25 12.5 mg tablet omeprazole 20 mg capsule,delayed 20 mg PO BID 10/05/23 01/25/25 release bupropion HCl 300 mg 24 hr tablet, 300 mg PO DAILY 03/2901/25/25 extended release lidocaine 5 % topical patch 1 patch topical DAILY 11/0401/25/25 ondansetron 4 mg disintegrating mg PO 11/16/23 4 tablet tizanidine 2 mg tablet 2 mg PO BID PRN muscle pain 01/25/25 01/25/25 Previous Rx's ?Medication ?Instructions ?Recorded ondansetron 4 mg disintegrating 4 mg PO Q8H #10 tabs 1 04/17/23 tablet Allergies Allergy/AdvReac Type Severity Reaction Status Date / Time meperidine (From Demerol) Allergy Severe paralysis Verified 02/16/24 09:48 Penicillins (PENICILLINS) AdvReac Unknown Hives Verified 02/16/24 09:48 amoxicillin AdvReac Hives Verified 02/16/24 09:48 Review of Systems Review of Systems Narrative: GENERAL: Negative chills, fatigue, malaise, fever, sweats. HEENT: Negative sinus pain, ear pain, sore throat RESPIRATORY: Negative dyspnea, cough CARDIOVASCULAR: Negative chest pain, palpitations GASTROINTESTINAL: Positive vomiting, nausea, abdominal pain : Negative dysuria, frequency, hematuria MUSCULOSKELETAL: Negative muscle or bony pain SKIN: Negative rash, skin lesions NEUROLOGIC: Negative weakness, numbness ROS Unobtainable: All systems reviewed & are unremarkable except as noted in HPI and below Patient History Medical History (Updated 01/25/25 @ 19:47 by Fazal Bennett DO) Anxiety (2006) Chickenpox (1977) Chronic back pain (1994) Fibroids (Unknown) Heavy menstrual period (1991) Painful menstrual periods (1991) Endometriosis (1991) Genital warts (1991) Chlamydia (1985) Abnormal Pap smear of cervix (1991) Frequent UTI (Unknown) IBS (irritable bowel syndrome) (2007) Depression (2006) Surgical History Hx of tubal ligation (1994) Hx of tonsillectomy (1978) Family History Father Age: 76 Heart disease Hypertension High cholesterol Mother Mental health problem Grandfather Heart disease Hypertension Grandmother No problems noted. Grandfather No problems noted. Grandmother Cancer Social History household members: family Smoking Status: Current every day smoker alcohol intake: current tobacco type: cigarettes alcohol intake frequency: 3 or more drinks per day Alcohol type: beer Exam Narrative Exam Narrative: GENERAL: in no distress, not toxic not dyspneic HEAD: Normocephalic. EYES: Pupils equal round ENT: Mucous membranes moist. NECK: Trachea midline. CARDIOVASCULAR: Regular rate and rhythm RESPIRATORY: Clear to auscultation. Breath sounds equal bilaterally. No wheezes, rales, or rhonchi. GASTROINTESTINAL: Abdomen soft, epigastric tenderness present. Bowel sounds are present. No bruising on the abdomen or back. No ecchymosis.. Negative Dominguez Domingo, negative Mario EXTREMITIES: No gross deformities. BACK: No flank tenderness. NEURO: AOx4. Clear speech SKIN: Warm and dry PSYCH: Not anxious, is cooperative Initial Vital Signs Initial Vital Signs: Vital Signs Temperature 98.6 F 01/25/25 15:38 Pulse Rate 123 H 01/25/25 15:38 Respiratory Rate 20 01/25/25 15:38 Blood Pressure 111/75 01/25/25 15:38 Pulse Oximetry 99 01/25/25 15:38 Oxygen Delivery Method Room Air 01/25/25 15:38 Course Orders Ordered: Acetaminophen (Acetaminophen 325 Mg Tablet) 650 mg PO Q6H VERONICA Last Admin: 01/26/25 02:09 Dose: Not Given Documented By: Admin: 01/25/25 22:43 Dose: Not Given Documented By: AM Hydrocodone Bitart/Acetaminophen (Hydrocodone/Acet 5/325 Tablet) 1 tab PO Q4HR PRN PRN Reason: Pain, Moderate (4-6) Atorvastatin Calcium (Atorvastatin 20 Mg Tablet) 40 mg PO DAILY VERONICA Bupropion HCl (Bupropion Xl 150 Mg Tab) 300 mg PO DAILY VERONICA Calcium Carbonate (Calcium Carbonate 500 Mg Tab) 1,000 mg PO Q4HR PRN PRN Reason: Dyspepsia Cyclobenzaprine HCl (Cyclobenzaprine 10 Mg Tablet) 10 mg PO Q8HR PRN PRN Reason: Spasms Duloxetine HCl (Duloxetine 30 Mg Capsule.Dr) 60 mg PO DAILY VERONICA Folic Acid (Folic Acid 1 Mg Tablet) 1 mg PO DAILY VERONICA Hydromorphone HCl (Hydromorphone 1 Mg/Ml Syringe) 1 mg IV Q2H PRN PRN Reason: Pain, Severe (7-10) Last Admin: 01/26/25 04:39 Dose: 1 mg Documented By: AM Sodium Chloride (Normal Saline 0.9%) 1,000 mls @ 100 mls/hr IV CONT VERONICA Last Admin: 01/26/25 06:41 Dose: 100 mls/hr Documented By: Infusion: 01/26/25 06:27 Dose: Infused Documented By: Infusion: 01/25/25 22:04 Dose: 100 mls/hr Documented By: Infusion: 01/25/25 21:14 Dose: 0 mls/hr Documented By: Admin: 01/25/25 19:37 Dose: 100 mls/hr Documented By: SB Piperacillin Sod/Tazobactam (Sod 3.375 gm/ Sodium Chloride) 100 mls @ 200 mls/hr IV NOW VERONICA Stop: 01/26/25 08:00 Lorazepam (Lorazepam 2 Mg/Ml Inj) 1 mg IV Q6HR PRN PRN Reason: Anxiety Last Admin: 01/25/25 20:30 Dose: 0.5 mg Documented By: AB Lorazepam (Lorazepam 2 Mg/Ml Inj) 0 mg IV CIWAPRN PRN; Protocol PRN Reason: Alcohol Withdrawal Last Admin: 01/26/25 02:04 Dose: 1 mg Documented By: AM Lorazepam (Lorazepam 1 Mg Tablet) 0 mg PO CIWAPRN PRN; Protocol PRN Reason: Alcohol Withdrawal Metoclopramide HCl (Metoclopramide 10 Mg/2 Ml Inj) 5 mg IV Q6HR PRN PRN Reason: Nausea And Vomiting Last Admin: 01/25/25 20:20 Dose: 5 mg Documented By: AB Multivitamins (Multivitamin 1 Tablet) 1 tab PO DAILY VERONICA Multivitamins (Multivitamin 1 Tablet) 1 tab PO DAILY [facility] Naloxone HCl (Naloxone 0.4 Mg/Ml Vial) 0.4 mg IV PRN PRN PRN Reason: Opiate Reversal Naloxone HCl (Naloxone 0.4 Mg/Ml Vial) 0.2 mg IV Q2MIN PRN PRN Reason: Opiate Reversal Ondansetron HCl (Ondansetron 4 Mg/2 Ml Inj) 4 mg IV NOW PRN PRN Reason: Nausea And Vomiting Last Admin: 01/25/25 16:09 Dose: 4 mg Documented By: SBF Ondansetron HCl (Ondansetron 4 Mg Odt) 4 mg PO NOW PRN PRN Reason: Nausea And Vomiting Ondansetron HCl (Ondansetron 4 Mg/2 Ml Inj) 4 mg IV Q8HR PRN PRN Reason: Nausea And Vomiting Pantoprazole Sodium (Pantoprazole 40 Mg Vial) 40 mg IV 0600 [facility] Last Admin: 01/26/25 05:05 Dose: 40 mg Documented By: AM Prochlorperazine (Prochlorperazine 10 Mg/2 Ml Vial) 10 mg IV Q6HR PRN PRN Reason: Nausea Last Admin: 01/25/25 22:03 Dose: 10 mg Documented By: AM Promethazine HCl (Promethazine 12.5 Mg Supp) 12.5 mg AL Q6HR PRN PRN Reason: Nausea And Vomiting Sodium Chloride (Sodium Chloride 0.9% Flush) 10 ml IV BID [facility] Thiamine HCl (Thiamine 100 Mg Tablet) 100 mg PO DAILY [facility] Zolpidem Tartrate (Zolpidem 5 Mg Tablet) 5 mg PO BEDTIME PRN PRN Reason: Sleep Discontinued Medications Fentanyl (Fentanyl 100 Mcg/2 Ml Inj) 100 mcg IV NOW ONE Stop: 01/25/25 18:02 Last Admin: 01/25/25 18:38 Dose: 100 mcg Documented By: SB Hydromorphone HCl (Hydromorphone 1 Mg/Ml Syringe) 1 mg IV NOW ONE Stop: 01/25/25 15:59 Last Admin: 01/25/25 16:09 Dose: 1 mg Documented By: SBF Hydromorphone HCl (Hydromorphone 1 Mg/Ml Syringe) 1 mg IV NOW ONE Stop: 01/25/25 16:37 Last Admin: 01/25/25 16:43 Dose: 1 mg Documented By: SBF Hydromorphone HCl (Hydromorphone Hcl 0.5 Mg/0.5 Ml Syringe) 0.5 mg IV Q2H PRN PRN Reason: Pain, Severe (7-10) Last Admin: 01/25/25 22:04 Dose: 0.5 mg Documented By: AM Hydromorphone HCl (Hydromorphone Hcl 0.5 Mg/0.5 Ml Syringe) 1 mg IV Q2H PRN PRN Reason: Pain, Severe (7-10) Last Admin: 01/25/25 23:56 Dose: 1 mg Documented By: AM Sodium Chloride (Normal Saline 0.9%) 1,000 mls @ 1,000 mls/hr IV BOLUS ONE Stop: 01/25/25 16:57 Last Infusion: 01/25/25 17:23 Dose: Infused Documented By: Admin: 01/25/25 16:09 Dose: 1,000 mls/hr Documented By: SBF Ceftriaxone Sodium 2,000 mg/ (Sodium Chloride) 100 mls @ 200 mls/hr IV NOW ONE Stop: 01/25/25 18:09 Last Infusion: 01/25/25 19:31 Dose: Infused Documented By: Admin: 01/25/25 18:52 Dose: 200 mls/hr Documented By: SB Pantoprazole Sodium (Pantoprazole Dr 20 Mg Tablet) 20 mg PO 0600 [facility] Pantoprazole Sodium (Pantoprazole 40 Mg Vial) 40 mg IV DAILY VERONICA Vital Signs Vital signs: Vital Signs - 8 hr 01/25/25 15:38 01/25/25 16:25 01/25/25 16:26 Temperature 98.6 F Pulse Rate 123 H 113 H 106 H Respiratory Rate 20 Blood Pressure 111/75 Pulse Oximetry 99 Oxygen Delivery Method Room Air 01/25/25 16:26 01/25/25 16:30 01/25/25 16:31 Temperature Pulse Rate 104 H 95 H Respiratory Rate Blood Pressure 160/107 H Pulse Oximetry 95 96 Oxygen Delivery Method 01/25/25 16:31 01/25/25 17:00 01/25/25 17:00 Temperature Pulse Rate 114 H Respiratory Rate Blood Pressure 132/88 155/83 H Pulse Oximetry 94 Oxygen Delivery Method 01/25/25 17:13 01/25/25 17:13 Temperature Pulse Rate 114 H Respiratory Rate Blood Pressure 149/72 H Pulse Oximetry 97 Oxygen Delivery Method Room Air MDM - Abdominal Pain Lab Data 01/26/25 05:33 01/26/25 05:33 Labs: Lab Results 01/25/25 01/25/25 01/25/25 Range/Units 15:45 15:55 19:00 WBC 16.5 H (4.5-11.0) X10^3/uL RBC 4.19 (4.0-5.2) X10^6/uL Hgb 14.2 (12.0-16.0) g/dL Hct 41.0 (36-46) % MCV 97.8 (80-100) fL MCH 33.9 (26-34) PG MCHC 34.7 (30-36) % RDW 14.8 (11.6-14.8) % Plt Count 345 (150-400) X10^3/uL Neut % (Auto) 86.8 H (50-75) % Lymph % (Auto) 8.5 L (25-40) % [place] % (Auto) 4.3 (3-14) % Eos % (Auto) 0.0 L (2-4) % Baso % (Auto) 0.4 (0-2) % Neut # (Auto) 42090 H (7479-6826) /uL Lymph # (Auto) 1400 (6569-7001) /uL [place] # (Auto) 700 (0-900) /uL Eos # (Auto) 0 (0-450) /uL Baso # (Auto) 100 (0-100) /uL Sodium 132 L (137-145) mmol/L Potassium 4.1 (3.4-5.1) mmol/L Chloride 99 (98-107) mmol/L Carbon Dioxide 18 L (22-32) mmol/L BUN 18 H (7-17) mg/dL Creatinine 0.88 (0.52-1.04) mg/dL Estimated GFR > 60 (>60) mL/min BUN/Creatinine Ratio 20.5 (6-22) Glucose 111 H (70-99) mg/dL Calcium 10.1 (8.4-10.2) mg/dL Total Bilirubin 1.1 (0.2-1.3) mg/dL AST 54 H (14-36) IU/L ALT 32 (<35) IU/L Alkaline Phosphatase 212 H (38-126) U/L Total Protein 8.1 (6.3-8.2) g/dL Albumin 4.6 (3.5-5.0) g/dL Globulin 3.5 (1.7-4.1) g/dL Albumin/Globulin Ratio 1.3 (1.0-2.8) Lipase 4405 H (23-300) U/L Urine RBC 0-1/hpf (0-5/HPF) Urine WBC 0-1/hpf (0-5/HPF) Ur Squamous Epith Cells 5-10 /hpf H (0-5/HPF) Urine Bacteria Few (2-10) H (None) Ur Culture Indicated? Cult not indicated Vol Urine Centrifuged 10ml (spun) Ethyl Alcohol < 10 (<10) mg/dL Point of care testing: Urine Dip Bedside Urine Glucose Negative Bedside Urine Bilirubin - Negative Bedside Urine Ketone - Negative Urine Specific [place] 1.010 Bedside Urine Occult Blood + Bedside Urine pH 6.0 Bedside Urine Protein +/- 15 Bedside Urine Urobilinogen - Negative Bedside Urine Nitrite - Negative Bedside Urine Leukocytes - Negative Esterase MDM Narrative Medical decision making narrative: Patient here for abdominal pain and vomiting. Patient has history of alcohol pancreatitis. Last drank alcohol last night around midnight. Pain and vomiting started last night around midnight. Denies any fall or injury. No seizure. Patient is awake alert orient x4. MDM After history and exam, Dilaudid Zofran normal saline CBC CMP lipase CT abdomen pelvis Differential considered: Includes but not limited to alcohol pancreatitis cholelithiasis cholecystitis Medical records reviewed: October 05, 2023 ear or visit here. Lab Test results independently reviewed as above. Pertinent findings: WBC 16.5 hemoglobin 14.2 sodium 132 potassium 4.1 BUN 18 creatinine 0.88 AST 54 ALT 32 glucose 111 lipase 4405 alcohol negative Independently reviewed EKG artifact possible atrial flutter rate 116 Imaging studies independently reviewed: CT abdomen pelvis necrotic pancreas Consultations: 5:55 p.m.. Contacted general surgery dr bennett, who will come in to the emergency department to see patient and review imaging for disposition 6:49 p.m.. General surgery has seen patient and reviewed CT imaging. He does not believe this is necrotic pancreas and patient can be admitted here. will follow in consult 7:23 p.m.. I spoke with hospitalist, dr yancey, will admit Re-evaluations: 6:00 p.m.. Updated patient results and needing general surgery consult. Discussion: Appropriate for admission for pain control. Antibiotics have been started. Diagnosis: Alcohol pancreatitis Discharge Plan Departure Patient Disposition: Admitted as Observation Clinical Impression: Acute alcoholic pancreatitis Qualifiers: Acute pancreatitis complication: no infection or necrosis Qualified Code(s): K 85.20 - Alcohol induced acute pancreatitis without necrosis or infection Admit Date/Time: 01/25/25 19:26 Admit Provider: Zach Yancey
--- NOTE | 2025-01-25 16:23 | DI.CT.S_ITS ---
PROCEDURE: CT ABDOMEN PELVIS W CON INDICATIONS: Abdominal pain TECHNIQUE: After the administration of intravenous contrast, axial sections acquired from the lung bases to the pubic symphysis. Coronal and sagittal reformats were performed. For radiation dose reduction, the following was used: automated exposure control, adjustment of mA and/or kV according to patient size. COMPARISON: [facility], CT, CT ABDOMEN PELVIS W CON, 10/05/2023, 10:08. FINDINGS: Image quality: Diagnostic Lower chest: Unremarkable lung bases. Normal heart size. Mildly patulous distal esophagus nonspecific. Liver: Possible hepatic steatosis. Gallbladder and biliary system: Gallbladder appears distended. Nondilated CBD. Pancreas: Moderate peripancreatic edema. A focal area of necrotic parenchyma is seen in the posterior body. No drainable fluid collection at this time. No ductal dilation. Spleen: Nonenlarged Adrenals: Left adrenal nodule again seen measuring up to 1.7 cm. This was present dating back to 2023 imaging Kidneys: No hydronephrosis. No solid renal mass Vessels and lymph nodes: Moderate aortoiliac atherosclerotic calcifications. There are no enlarged lymph nodes by size criteria. Prominent periportal lymph nodes are seen, nonspecific and possibly reactive. Bowel and peritoneum: Edema around the pancreas extends to the region of the pancreaticoduodenal groove. There is also edema extending throughout the lesser sac. No small bowel obstruction. No drainable ascites. Colonic diverticula. Body wall: Unremarkable Pelvis: Under distended urinary bladder. Right uterine calcification again seen. And axial surgical changes Bones: No aggressive appearing osseous abnormality. Degenerative changes are present. IMPRESSION: Acute necrotic pancreatitis. There is moderate peripancreatic edema and a focal area of parenchymal hypoenhancement in the posterior body. Distended gallbladder. No radiopaque gallstones. Ultrasound could further evaluate if needed. Edema seen surrounding the pancreas extends to the lesser sac and duodenal region. No drainable fluid collection at this time. Other incidental and nonacute findings above Dictated by: Daniel Larios M.D. on 01/25/2025 at 17:25 Approved by: Daniel Larios M.D. on 01/25/2025 at 17:31
[2025-01-25 16:24] LABS: Ethanol (ETOH) < 10 mg/dL (<10)
[2025-01-25 16:36] LABS: Lipase 4405 U/L (23-300)
[2025-01-25] MEDS: fentaNYL 100 MCG/2 ML INJ IV (18:38)
[2025-01-25] MEDS: cefTRIAXone 2,000 MG in SODIUM CHLORIDE 0.9% 100 ML 200 MG IV (18:52)
[2025-01-25 19:24] LABS: Culture Indicated Urine Cult Not Indicated
--- NOTE | 2025-01-25 19:26 | PM.HP.IH.1 ---
History of Present Illness History of Present Illness Date Patient Seen: 01/25/25 Time Patient Seen: 06:30 Date of Onset of Symptoms: 01/24/25 Chief complaint: per pt pancreatitis attack Narrative: Patient is a 54-year-old white female presents to the emergency room with severe abdominal pain which is epigastric left upper quadrant with radiation back to her back which started approximately 09/24/2024 at midnight. The patient has nausea vomiting denies any hematemesis states it is bilious in nature denies any melena. Patient has a history of alcohol abuse with previous history of alcoholic pancreatitis. The patient last drank alcohol last p.m.. Patient underwent a CT scan which shows as per Radiology necrotic midbody pancreatitis dilated gallbladder without stones atherosclerotic vascular disease diverticulosis tubal ligation atherosclerotic vascular disease. Patient is meeting laboratory shows WBC of 16.5 hemoglobin is 14.2 hematocrit is 41.0 platelets are 345,000 sodium is 132 potassium 4.1 chloride 99 bicarb is 18 BUN of 18 creatinine 0.86 random blood sugar is 111 lipase is 4405 alcohol level is less than 10 total bilirubin is 1.1 AST is 54 ALT is 32 alkaline phosphatase 212 patient's urine shows positive nitrites and +3 leukocyte esterase cytology has not been done. I was asked to see the patient for surgical evaluation. Allergies: Demerol penicillin and amoxicillin Medications: Atorvastatin, bupropion, Cefdinir, Keflex, dicyclomine, duloxetine, Lomotil, losartan/hydrochlorothiazide, omeprazole, Zofran, phenazopyridine Past medical history: Corrective lenses, upper partial plate, 4 para 3 1, anxiety, depression, hyperlipidemia, hypertension, IBS, frequent UTIs, diverticulosis, history of alcoholic pancreatitis, uterine fibroids, degenerative joint disease of the spine, history of incontinence of gas and stool with rectal prolapse reoccurrence x3. Patient denies any other heart lungs digestive musculoskeletal neurological seizure disorder psychiatric problems risks are Infectious diseases HIV or AIDS. Past surgical history: Tonsils and adenoids, tubal ligation, IUD, x1, rectal prolapse surgery x3 with mesh use x2 with failure of all 3 procedures, colonoscopy in 2009- Social history: Unemployed, history of tobacco abuse 1-2 packs per day times 39 years, alcohol drinks 3-4 beers per day, history of meth use in the past Vitals: Temperature is 98.6? pulse is 114 respirations 20 BP is 149/72 pulse ox is 97% on room air. Patient is 5 ft 8 in tall 140 lb Head is normocephalic eyes PERRLA EOMI is intact oropharyngeal cavity partial plate is in place moderate gingivitis is noted dry oral mucosa is noted heart regular rate and rhythm with slight tachycardia lungs are diminished in the bases moderate inspiratory and expiratory effort moderate chest wall motion noted no rales rhonchi or wheezes noted. Abdomen is slightly distended with hypoactive bowel sounds epigastric tenderness and left upper quadrant tenderness but no rebound or guarding. Negative Figueroa's no palpable masses. Musculoskeletal moderate muscle tone and strength equal bilaterally no gross deficits elicited. Impression: Acute pancreatitis with radiology read possible necrosis midbody now signs of phlegmon or pseudocyst CT scan showing enlarged gallbladder atherosclerotic vascular disease diverticulosis tubal ligation moderate pancreatitis nonenlarged spleen. Normal common bile duct Anxiety, depression History of alcoholic pancreatitis Degenerative joint disease of the spine with chronic back pain History of tobacco abuse 1-2 packs per day times 39 years Alcohol use 3-4 drinks per day History of meth use in the past Rectal prolapse transanal surgery x3 with failure Plan: Discussed with patient and family the findings no need for emergent surgical intervention we will admit patient to the hospital service for medical management daily observation fluids recheck laboratory we will check PT PTT serum ammonia also recheck laboratory in the morning with a ultrasound of the liver and gallbladder rule out gallstone etiology. We will place patient on pain management antiemetics we will place on antibiotics has patient does have a urinary tract infection check blood culture and C&S of the urine. All questions were answered patient's satisfaction if patient has any worsening symptoms or problems developed pseudocyst or abscess would refer to a tertiary center all questions were answered to patient and family satisfaction. [facility] Medical History (Updated 01/25/25 @ 18:50 by Akshat Estrada MD) Anxiety (2006) Chickenpox (1977) Chronic back pain (1994) Fibroids (Unknown) Heavy menstrual period (1991) Painful menstrual periods (1991) Endometriosis (1991) Genital warts (1991) Chlamydia (1985) Abnormal Pap smear of cervix (1991) Frequent UTI (Unknown) IBS (irritable bowel syndrome) (2007) Depression (2006) Surgical History Hx of tubal ligation (1994) Hx of tonsillectomy (1978) Family History Father Age: 76 Heart disease Hypertension High cholesterol Mother Mental health problem Grandfather Heart disease Hypertension Grandmother No problems noted. Grandfather No problems noted. Grandmother Cancer Social History household members: family alcohol intake: current Meds Home Medications and Allergies Home Medications ?Medication ?Instructions ?Recorded ?Confirmed ?Type atorvastatin 40 mg tablet 40 mg PO DAILY 10/05/23 02/16/24 History loperamide 2 mg capsule 2 mg PO 4XD PRN Diarrhea 10/05/23 02/16/24 History losartan 50 mg-hydrochlorothiazide 1 tab PO DAILY 10/05/23 02/16/24 History 12.5 mg tablet omeprazole 20 mg capsule,delayed 20 mg PO BID 10/05/23 02/16/24 History release bupropion HCl 300 mg 24 hr tablet, 300 mg PO DAILY 11/16/23 02/16/24 History extended release cefdinir 300 mg capsule 300 mg PO BID #10 caps 11/16/23 02/16/24 Rx dicyclomine 20 mg tablet 20 mg PO 3XD 11/16/23 02/16/24 History duloxetine 20 mg capsule,delayed 20 mg PO DAILY 11/16/23 02/16/24 History release duloxetine 60 mg capsule,delayed 60 mg PO DAILY 11/16/23 02/16/24 History release lidocaine 5 % topical patch 1 patch topical DAILY 11/16/23 02/16/24 History ondansetron 4 mg disintegrating mg PO 11/16/23 02/16/24 History tablet ondansetron 4 mg disintegrating 4 mg PO Q8H #10 tabs 02/16/24 02/16/24 Rx tablet phenazopyridine 200 mg tablet 200 mg PO TID PRN pain 6 doses #6 02/16/24 02/16/24 Rx (Pyridium) tabs cephalexin 500 mg capsule 500 mg PO QID #20 caps 02/18/24 02/18/24 Rx Allergies Allergy/AdvReac Type Severity Reaction Status Date / Time meperidine (From Demerol) Allergy Severe paralysis Verified 02/16/24 09:48 Penicillins (PENICILLINS) AdvReac Unknown Hives Verified 02/16/24 09:48 amoxicillin AdvReac Hives Verified 02/16/24 09:48 Exam Vital Signs (past 8 hours): - 01/25/25 15:38 01/25/25 16:25 01/25/25 16:26 Temperature 98.6 F Pulse Rate 123 H 113 H 106 H Respiratory Rate 20 Blood Pressure 111/75 Pulse Oximetry 99 Oxygen Delivery Method Room Air 01/25/25 16:26 01/25/25 16:30 01/25/25 16:31 Temperature Pulse Rate 104 H 95 H Respiratory Rate Blood Pressure 160/107 H Pulse Oximetry 95 96 Oxygen Delivery Method 01/25/25 16:31 01/25/25 17:00 01/25/25 17:00 Temperature Pulse Rate 114 H Respiratory Rate Blood Pressure 132/88 155/83 H Pulse Oximetry 94 Oxygen Delivery Method 01/25/25 17:13 01/25/25 17:13 01/25/25 17:30 Temperature Pulse Rate 114 H 109 H Respiratory Rate 24 Blood Pressure 149/72 H Pulse Oximetry 97 99 Oxygen Delivery Method Room Air 01/25/25 17:30 01/25/25 18:00 01/25/25 18:00 Temperature Pulse Rate 85 Respiratory Rate Blood Pressure 150/84 H 158/92 H Pulse Oximetry 99 Oxygen Delivery Method 01/25/25 18:30 01/25/25 18:30 Temperature Pulse Rate 81 Respiratory Rate Blood Pressure 170/81 H Pulse Oximetry 99 Oxygen Delivery Method Room Air Oxygen Delivery Method Room Air Objective Labs 01/25/25 15:55 01/25/25 15:55 Labs: Laboratory Results - last 24 hr 01/25/25 01/25/25 01/25/25 15:45 15:55 19:00 WBC 16.5 H RBC 4.19 Hgb 14.2 Hct 41.0 MCV 97.8 MCH 33.9 MCHC 34.7 RDW 14.8 Plt Count 345 Neut % (Auto) 86.8 H Lymph % (Auto) 8.5 L [place] % (Auto) 4.3 Eos % (Auto) 0.0 L Baso % (Auto) 0.4 Neut # (Auto) 74474 H Lymph # (Auto) 1400 [place] # (Auto) 700 Eos # (Auto) 0 Baso # (Auto) 100 Sodium 132 L Potassium 4.1 Chloride 99 Carbon Dioxide 18 L BUN 18 H Creatinine 0.88 Estimated GFR > 60 BUN/Creatinine Ratio 20.5 Glucose 111 H Calcium 10.1 Total Bilirubin 1.1 AST 54 H ALT 32 Alkaline Phosphatase 212 H Total Protein 8.1 Albumin 4.6 Globulin 3.5 Albumin/Globulin Ratio 1.3 Lipase 4405 H Urine RBC 0-1/hpf Urine WBC 0-1/hpf Ur Squamous Epith Cells 5-10 /hpf H Urine Bacteria Few (2-10) H Ur Culture Indicated? Cult not indicated Vol Urine Centrifuged 10ml (spun) Ethyl Alcohol < 10 Assessment & Plan Time-Based Coding :: [TOTAL MINUTES] spent with patient and on the chart (including review of chart, obtaining history, exam, reviewing outside data, placing orders, documenting exam and treatment plan, and counseling patient) on [DATE]. [employer] Document charge(s): Yes
[2025-01-25] MEDS: SODIUM CHLORIDE 0.9% 1,000 ML 100 ML IV (19:37)
[2025-01-25] MEDS: METOCLOPRAMIDE 10 MG/2 ML INJ 5 MG IV (20:20)
--- NOTE | 2025-01-25 20:29 | PC.NURSE ---
1943 Unable to medicate PO tylenol at this time due to nausea and dry-heaving.
[2025-01-25] MEDS: PROCHLORPERAZINE 10 MG/2 ML VIAL IV (22:03)
--- NOTE | 2025-01-25 22:54 | PM.HP.1 ---
History of Present Illness History of Present Illness Date Patient Seen: 01/25/25 Time Patient Seen: 22:55 Chief complaint: per pt pancreatitis attack Narrative: The pt is a 54 yo who presents to the ER [place] due to concerns abot abdominal pain, constant , radiating to the back, the pain started about 24 hours ago, +N/V this morning, dry heaving. This will be her second time to have this pain. Typically she drinks 4-5 tall boys, 24 oz/can, mixed drinks, last drink was just prior to the onset of the pain. Never had amelia, no change in bowel habits, she has lost 25 lb over the past 4 months, she has chronic diarrhea, she does have a hx of HTN, he had a hx of EGD 15 years ago. [facility] Medical History (Updated 01/25/25 @ 19:47 by Fazal Brown DO) Anxiety (2006) Chickenpox (1977) Chronic back pain (1994) Fibroids (Unknown) Heavy menstrual period (1991) Painful menstrual periods (1991) Endometriosis (1991) Genital warts (1991) Chlamydia (1985) Abnormal Pap smear of cervix (1991) Frequent UTI (Unknown) IBS (irritable bowel syndrome) (2007) Depression (2006) Surgical History Hx of tubal ligation (1994) Hx of tonsillectomy (1978) Family History Father Age: 76 Heart disease Hypertension High cholesterol Mother Mental health problem Grandfather Heart disease Hypertension Grandmother No problems noted. Grandfather No problems noted. Grandmother Cancer Social History household members: family alcohol intake: current Meds Home Medications and Allergies Home Medications ?Medication ?Instructions ?Recorded ?Confirmed ?Type atorvastatin 40 mg tablet 40 mg PO DAILY 10/05/23 02/16/24 History loperamide 2 mg capsule 2 mg PO 4XD PRN Diarrhea 10/05/23 02/16/24 History losartan 50 mg-hydrochlorothiazide 1 tab PO DAILY 10/05/23 02/16/24 History 12.5 mg tablet omeprazole 20 mg capsule,delayed 20 mg PO BID 10/05/23 02/16/24 History release bupropion HCl 300 mg 24 hr tablet, 300 mg PO DAILY 11/16/23 02/16/24 History extended release lidocaine 5 % topical patch 1 patch topical DAILY 11/16/23 02/16/24 History ondansetron 4 mg disintegrating mg PO 11/16/23 02/16/24 History tablet ondansetron 4 mg disintegrating 4 mg PO Q8H #10 tabs 02/16/24 02/16/24 Rx tablet tizanidine 2 mg tablet 2 mg PO BID PRN muscle pain 01/25/25 01/25/25 History Allergies Allergy/AdvReac Type Severity Reaction Status Date / Time meperidine (From Demerol) Allergy Severe paralysis Verified 02/16/24 09:48 Penicillins (PENICILLINS) AdvReac Unknown Hives Verified 02/16/24 09:48 amoxicillin AdvReac Hives Verified 02/16/24 09:48 Exam Vital Signs (past 8 hours): - 01/25/25 15:38 01/25/25 16:25 01/25/25 16:26 Temperature 98.6 F Pulse Rate 123 H 113 H 106 H Respiratory Rate 20 Blood Pressure 111/75 Pulse Oximetry 99 Oxygen Delivery Method Room Air Oxygen Flow Rate 01/25/25 16:26 01/25/25 16:30 01/25/25 16:31 Temperature Pulse Rate 104 H 95 H Respiratory Rate Blood Pressure 160/107 H Pulse Oximetry 95 96 Oxygen Delivery Method Oxygen Flow Rate 01/25/25 16:31 01/25/25 17:00 01/25/25 17:00 Temperature Pulse Rate 114 H Respiratory Rate Blood Pressure 132/88 155/83 H Pulse Oximetry 94 Oxygen Delivery Method Oxygen Flow Rate 01/25/25 17:13 01/25/25 17:13 01/25/25 17:30 Temperature Pulse Rate 114 H 109 H Respiratory Rate 24 Blood Pressure 149/72 H Pulse Oximetry 97 99 Oxygen Delivery Method Room Air Oxygen Flow Rate 01/25/25 17:30 01/25/25 18:00 01/25/25 18:00 Temperature Pulse Rate 85 Respiratory Rate Blood Pressure 150/84 H 158/92 H Pulse Oximetry 99 Oxygen Delivery Method Oxygen Flow Rate 01/25/25 18:30 01/25/25 18:30 01/25/25 19:00 Temperature Pulse Rate 81 102 H Respiratory Rate Blood Pressure 170/81 H Pulse Oximetry 99 98 Oxygen Delivery Method Room Air Oxygen Flow Rate 01/25/25 19:00 01/25/25 19:30 01/25/25 19:31 Temperature Pulse Rate 88 81 Respiratory Rate 21 Blood Pressure 143/88 H Pulse Oximetry 98 98 Oxygen Delivery Method Oxygen Flow Rate 01/25/25 19:31 01/25/25 20:00 01/25/25 20:00 Temperature Pulse Rate 76 Respiratory Rate Blood Pressure 141/75 H 156/80 H Pulse Oximetry 98 Oxygen Delivery Method Oxygen Flow Rate 01/25/25 20:30 01/25/25 20:30 01/25/25 21:00 Temperature Pulse Rate 68 76 Respiratory Rate 23 Blood Pressure 157/82 H Pulse Oximetry 96 94 Oxygen Delivery Method Room Air Oxygen Flow Rate 01/25/25 21:00 01/25/25 21:25 01/25/25 22:03 Temperature 98.1 F Pulse Rate 85 82 Respiratory Rate 18 Blood Pressure 147/98 H 150/89 H 150/89 H Pulse Oximetry 98 Oxygen Delivery Method Oxygen Flow Rate 0 Oxygen Delivery Method Room Air Oxygen Flow Rate 0 Const General: cooperative, healthy appearing and comfortable Resp Auscultation: clear to auscultation bilaterally Cardio Rate: regular rate Rhythm: regular rhythm GI Auscultation: normal bowel sounds Objective Labs 01/25/25 15:55 01/25/25 15:55 Labs: Laboratory Results - last 24 hr 01/25/25 01/25/25 01/25/25 15:45 15:55 19:00 WBC 16.5 H RBC 4.19 Hgb 14.2 Hct 41.0 MCV 97.8 MCH 33.9 MCHC 34.7 RDW 14.8 Plt Count 345 Neut % (Auto) 86.8 H Lymph % (Auto) 8.5 L [place] % (Auto) 4.3 Eos % (Auto) 0.0 L Baso % (Auto) 0.4 Neut # (Auto) 03557 H Lymph # (Auto) 1400 [place] # (Auto) 700 Eos # (Auto) 0 Baso # (Auto) 100 Sodium 132 L Potassium 4.1 Chloride 99 Carbon Dioxide 18 L BUN 18 H Creatinine 0.88 Estimated GFR > 60 BUN/Creatinine Ratio 20.5 Glucose 111 H Calcium 10.1 Total Bilirubin 1.1 AST 54 H ALT 32 Alkaline Phosphatase 212 H Total Protein 8.1 Albumin 4.6 Globulin 3.5 Albumin/Globulin Ratio 1.3 Lipase 4405 H Urine RBC 0-1/hpf Urine WBC 0-1/hpf Ur Squamous Epith Cells 5-10 /hpf H Urine Bacteria Few (2-10) H Ur Culture Indicated? Cult not indicated Vol Urine Centrifuged 10ml (spun) Ethyl Alcohol < 10 Assessment & Plan Assessment & Plan narrative: I have discussed the pt's presenting symptoms, labs and imaging with the ER provider and agree with the decision for admission. I have personally reviewed the labs showing a WBC of 16, Lipase of 4400, with normal electrolytes. I have reviewed [facility] CT abd, showing the inflammed pancrease. 1. Alcoholic Pancreatits- will start [facility] pt on clear liquid diet, IVF, repeat lipase in am, IV antiemetics, and IV narcotic for pain control. repeat labs in am. 2. Alcoholism- She does not exhibit any signs of withdrawl at this time but will order withdraw protocol, with CIWA checks, ativan prn for signs of withdrawl, start thiamine and folate, 3. HTN- stable at this time continue to monitor. Time-Based Coding :: [TOTAL MINUTES] spent with patient and on the chart (including review of chart, obtaining history, exam, reviewing outside data, placing orders, documenting exam and treatment plan, and counseling patient) on [DATE].
[2025-01-26] VITALS (7 sets, daily range): BP systolic 101–125; BP diastolic 78–92; PULSE 72–118; RESP 15–20; TEMP 36.7–37.2; O2SAT 92–97
[2025-01-26] MEDS: PANTOPRAZOLE 40 MG VIAL IV (05:05)
[2025-01-26 05:55] LABS: Hematocrit 35.2 % (36-46); Hemoglobin 12.1 g/dL (12.0-16.0); Mean Corpuscular HGB Conc 34.3 % (30-36); Mean Corpuscular Hemoglobin 34.0 PG (26-34); Mean Corpuscular Volume 99.0 fL (80-100); Platelet Count 230 X10^3/uL (150-400)
[2025-01-26 06:04] LABS: INR 1.2 (0.9-1.3); Prothrombin Time 13.3 SECONDS (9.4-12.5)
[2025-01-26 06:07] LABS: PTT Partial Thromboplastin Tim 27 SECONDS (25.1-36.5)
[2025-01-26 06:09] LABS: Alanine Aminotransferase 21 IU/L (<35); Albumin 3.6 g/dL (3.5-5.0); Albumin Globulin Ratio 1.2 (1.0-2.8); Alkaline Phosphatase 152 U/L (38-126); Blood Urea Nitrogen 15 mg/dL (7-17); Calcium 8.7 mg/dL (8.4-10.2); Carbon Dioxide 21 mmol/L (22-32); Chloride 104 mmol/L (98-107); Estimated Glomerular Filt Rate > 60 mL/min (>60); Globulin 3.0 g/dL (1.7-4.1); Glucose 99 mg/dL (70-99); HEMOLYSIS < 15 (0-50); Potassium 3.9 mmol/L (3.4-5.1); Sodium 135 mmol/L (137-145); Total Protein 6.6 g/dL (6.3-8.2)
[2025-01-26 06:13] LABS: Ammonia (NH3) < 9 umol/L (9-30)
[2025-01-26 06:16] LABS: Lipase 2381 U/L (23-300)
[2025-01-26] MEDS: SODIUM CHLORIDE 0.9% 1,000 ML 100 ML IV ×2 (06:41→16:33)
--- NOTE | 2025-01-26 06:58 | DI.US.S_ITS ---
PROCEDURE: US ABDOMEN LIMITED INDICATIONS: gallbladder liver pancreas TECHNIQUE: Real-time scanning was performed of the abdominal and retroperitoneal organs, with image documentation. COMPARISON: [facility], CT, CT ABDOMEN PELVIS W CON, 01/25/2025, 17:10. FINDINGS: Liver: Liver is normal in size and homogeneous in echotexture. Gallbladder: Mildly distended gallbladder. No gallstones. No wall thickening. No pericholecystic edema. Negative sonographic Figueroa's sign. Biliary ducts: Intrahepatic bile ducts are non-dilated. Extrahepatic bile duct caliber measures 9 mm. Normal is 6-7 mm or less in diameter, or 10 mm or less post-cholecystectomy. Pancreas: Peripancreatic edema is present. No ductal dilatation. A 1.7 x 1.2 x 1.7 cm hypoechoic region is seen at the posterior pancreatic body/tail Miscellaneous: No free abdominal fluid. IMPRESSION: 1. Fin peripancreatic edema related to acute pancreatitis. A hypoechoic region in the pancreatic body/tail may represent focal pancreatic necrosis versus small peripancreatic collection or underlying cyst. 2. Common bile duct is dilated to 9 mm. No choledocholithiasis or cholelithiasis identified. Biliary dilatation may be reactive to the pancreatic inflammation. MRCP or ERCP could be performed for further evaluation if indicated clinically. Approved by: Angelito Jensen M.D. on 01/26/2025 at 8:24
--- NOTE | 2025-01-26 07:24 | P.PN_ITS ---
Subjective Subjective Interval history: S: Her patient was little bit better. No nausea. Surgery did feel that she could advance diet. Ultrasound was negative for stones, peripancreatic edema was noted. She also has a dilated common bile duct. No alcohol for approximately 18 hours. O: NAD, alert and oriented. Fluent speech. Lungs are clear, normal rate and effort. Heart is regular, no murmur gallop or rub. Abdomen is soft, non distended. Extremities are free of edema. A/P: 1. Alcoholic Pancreatits, active and improving. . 2. Alcohol use disorder, active. 3. HTN, stable. PLAN: -advance diet -add Librium 10 mg t.i.d., start now. Exam Vital Signs (past 8 hours): - 01/26/25 02:18 01/26/25 04:00 Temperature 98.5 F 98.1 F Pulse Rate 72 118 H Respiratory Rate 17 20 Blood Pressure 125/92 H 122/91 H Pulse Oximetry 95 96 Oxygen Flow Rate 0 0 Oxygen Delivery Method Room Air Oxygen Flow Rate 0 Objective Labs 01/26/25 05:33 01/26/25 05:33 Labs: Laboratory Results - last 24 hr 01/25/25 01/25/25 01/25/25 15:45 15:55 19:00 WBC 16.5 H RBC 4.19 Hgb 14.2 Hct 41.0 MCV 97.8 MCH 33.9 MCHC 34.7 RDW 14.8 Plt Count 345 Neut % (Auto) 86.8 H Lymph % (Auto) 8.5 L [place] % (Auto) 4.3 Eos % (Auto) 0.0 L Baso % (Auto) 0.4 Neut # (Auto) 54211 H Lymph # (Auto) 1400 [place] # (Auto) 700 Eos # (Auto) 0 Baso # (Auto) 100 PT INR APTT Sodium 132 L Potassium 4.1 Chloride 99 Carbon Dioxide 18 L BUN 18 H Creatinine 0.88 Estimated GFR > 60 BUN/Creatinine Ratio 20.5 Glucose 111 H Calcium 10.1 Total Bilirubin 1.1 AST 54 H ALT 32 Alkaline Phosphatase 212 H Ammonia Total Protein 8.1 Albumin 4.6 Globulin 3.5 Albumin/Globulin Ratio 1.3 Lipase 4405 H Urine RBC 0-1/hpf Urine WBC 0-1/hpf Ur Squamous Epith Cells 5-10 /hpf H Urine Bacteria Few (2-10) H Ur Culture Indicated? Cult not indicated Vol Urine Centrifuged 10ml (spun) Ethyl Alcohol < 10 01/26/25 05:33 WBC 13.0 H RBC 3.55 L Hgb 12.1 Hct 35.2 L MCV 99.0 MCH 34.0 MCHC 34.3 RDW 14.8 Plt Count 230 Neut % (Auto) Lymph % (Auto) [place] % (Auto) Eos % (Auto) Baso % (Auto) Neut # (Auto) Lymph # (Auto) [place] # (Auto) Eos # (Auto) Baso # (Auto) PT 13.3 H INR 1.2 APTT 27 Sodium 135 L Potassium 3.9 Chloride 104 Carbon Dioxide 21 L BUN 15 Creatinine 0.78 Estimated GFR > 60 BUN/Creatinine Ratio 19.2 Glucose 99 Calcium 8.7 Total Bilirubin 0.8 AST 51 H ALT 21 Alkaline Phosphatase 152 H Ammonia < 9 L Total Protein 6.6 Albumin 3.6 Globulin 3.0 Albumin/Globulin Ratio 1.2 Lipase 2381 H Urine RBC Urine WBC Ur Squamous Epith Cells Urine Bacteria Ur Culture Indicated? Vol Urine Centrifuged Ethyl Alcohol REPLACED BY [facility] Medical History (Updated 01/25/25 @ 19:47 by Fazal Brown DO) Anxiety (2006) Chickenpox (1977) Chronic back pain (1994) Fibroids (Unknown) Heavy menstrual period (1991) Painful menstrual periods (1991) Endometriosis (1991) Genital warts (1991) Chlamydia (1985) Abnormal Pap smear of cervix (1991) Frequent UTI (Unknown) IBS (irritable bowel syndrome) (2007) Depression (2006) Surgical History Hx of tubal ligation (1994) Hx of tonsillectomy (1978) Family History Father Age: 76 Heart disease Hypertension High cholesterol Mother Mental health problem Grandfather Heart disease Hypertension Grandmother No problems noted. Grandfather No problems noted. Grandmother Cancer Social History household members: family Smoking Status: Current every day smoker alcohol intake: current Assessment & Plan Assessment and plan (1) Acute alcoholic pancreatitis: Qualifiers: Acute pancreatitis complication: no infection or necrosis Qualified Code(s): K85.20 - Alcohol induced acute pancreatitis without necrosis or infection Status: Acute Time-Based Coding :: [TOTAL MINUTES] spent with patient and on the chart (including review of chart, obtaining history, exam, reviewing outside data, placing orders, documenting exam and treatment plan, and counseling patient) on [DATE].
[2025-01-26] MEDS: THIAMINE 100 MG TABLET PO (08:41)
[2025-01-26] MEDS: PROCHLORPERAZINE 10 MG/2 ML VIAL IV (08:45)
--- NOTE | 2025-01-26 08:46 | PM.PN.IH.1 ---
Subjective Subjective Date Patient Seen: 01/26/25 Time Patient Seen: 08:30 Interval history: Patient is a 54-year-old white female admitted in the hospital with alcoholic pancreatitis. The patient states she was doing better until she had the ultrasound done cause some discomfort. Ultrasound this morning shows gallbladder mildly distended with no stones no gallbladder wall thickening no pericholecystic fluid negative Figueroa sign she was noted to have a peripancreatic edema with normal duct common bile duct was 9 mm with no common bile duct stones the patient appeared to be possibly forming a fluid collection in the midbody of the pancreas. Morning laboratory shows a WBC of 13.0 hemoglobin is 12.1 hematocrit is 35.2 platelets are 230,000 PT is 13.3 INR is 1.2 PTT is 27 sodium is 135 potassium 3.9 chloride 104 bicarb is 21 BUN 15 creatinine 0.78 random blood sugar is 99 calcium is 8.7 total bilirubin is 0.8 AST is 51 ALT is 21 alkaline phosphatase 152 lipase is down to 2381. Vitals: Temperature is 98.1? pulse is 118 respirations 20 BP is 122/91 SaO2 is 96% on room air Heart regular rate and rhythm without murmurs. Lungs are clear to auscultation poor inspiratory and expiratory effort poor chest wall motion noted. Abdomen is soft with hypoactive bowel sounds epigastric tenderness but no rebound or guarding no right upper quadrant pain noted. Impression: Resolving pancreatitis History of alcohol use Ultrasound of the gallbladder is negative for gallstones or gallstone pancreatitis Plan: No need for surgical intervention at this time we will advance diet slowly recheck laboratory in the morning we will check lipid profile also all questions were answered to patient's satisfaction. Exam Vital Signs (past 8 hours): - 01/26/25 02:18 01/26/25 04:00 01/26/25 08:44 Temperature 98.5 F 98.1 F 98.9 F Pulse Rate 72 118 H 116 H Respiratory Rate 17 20 15 Blood Pressure 125/92 H 122/91 H 117/87 Pulse Oximetry 95 96 93 Oxygen Flow Rate 0 0 0 01/26/25 08:45 Temperature Pulse Rate 116 H Respiratory Rate Blood Pressure 117/87 Pulse Oximetry Oxygen Flow Rate Oxygen Delivery Method Room Air Oxygen Flow Rate 0 Objective Labs 01/26/25 05:33 01/26/25 05:33 Labs: Laboratory Results - last 24 hr 01/25/25 01/25/2525 15:45 15:55 19:00 WBC 16.5 H RBC 4.19 Hgb 14.2 Hct 41.0 MCV 97.8 MCH 33.9 MCHC 34.7 RDW 14.8 Plt Count 345 Neut % (Auto) 86.8 H Lymph % (Auto) 8.5 L [place] % (Auto) 4.3 Eos % (Auto) 0.0 L Baso % (Auto) 0.4 Neut # (Auto) 20188 H Lymph # (Auto) 1400 [place] # (Auto) 700 Eos # (Auto) 0 Baso # (Auto) 100 PT INR APTT Sodium 132 L Potassium 4.1 Chloride 99 Carbon Dioxide 18 L BUN 18 H Creatinine 0.88 Estimated GFR > 60 BUN/Creatinine Ratio 20.5 Glucose 111 H Calcium 10.1 Total Bilirubin 1.1 AST 54 H ALT 32 Alkaline Phosphatase 212 H Ammonia Total Protein 8.1 Albumin 4.6 Globulin 3.5 Albumin/Globulin Ratio 1.3 Lipase 4405 H Urine RBC 0-1/hpf Urine WBC 0-1/hpf Ur Squamous Epith Cells 5-10 /hpf H Urine Bacteria Few (2-10) H Ur Culture Indicated? Cult not indicated Vol Urine Centrifuged 10ml (spun) Ethyl Alcohol < 10 01/26/25 05:33 WBC 13.0 H RBC 3.55 L Hgb 12.1 Hct 35.2 L MCV 99.0 MCH 34.0 MCHC 34.3 RDW 14.8 Plt Count 230 Neut % (Auto) Lymph % (Auto) [place] % (Auto) Eos % (Auto) Baso % (Auto) Neut # (Auto) Lymph # (Auto) [place] # (Auto) Eos # (Auto) Baso # (Auto) PT 13.3 H INR 1.2 APTT 27 Sodium 135 L Potassium 3.9 Chloride 104 Carbon Dioxide 21 L BUN 15 Creatinine 0.78 Estimated GFR > 60 BUN/Creatinine Ratio 19.2 Glucose 99 Calcium 8.7 Total Bilirubin 0.8 AST 51 H ALT 21 Alkaline Phosphatase 152 H Ammonia < 9 L Total Protein 6.6 Albumin 3.6 Globulin 3.0 Albumin/Globulin Ratio 1.2 Lipase 2381 H Urine RBC Urine WBC Ur Squamous Epith Cells Urine Bacteria Ur Culture Indicated? Vol Urine Centrifuged Ethyl Alcohol [facility] Medical History (Updated 01/25/25 @ 19:47 by Fazal Brown DO) Anxiety (2006) Chickenpox (1977) Chronic back pain (1994) Fibroids (Unknown) Heavy menstrual period (1991) Painful menstrual periods (1991) Endometriosis (1991) Genital warts (1991) Chlamydia (1985) Abnormal Pap smear of cervix (1991) Frequent UTI (Unknown) IBS (irritable bowel syndrome) (2007) Depression (2006) Surgical History Hx of tubal ligation (1994) Hx of tonsillectomy (1978) Family History Father Age: 76 Heart disease Hypertension High cholesterol Mother Mental health problem Grandfather Heart disease Hypertension Grandmother No problems noted. Grandfather No problems noted. Grandmother Cancer Social History household members: family Smoking Status: Current every day smoker alcohol intake: current Assessment & Plan Time-Based Coding :: [TOTAL MINUTES] spent with patient and on the chart (including review of chart, obtaining history, exam, reviewing outside data, placing orders, documenting exam and treatment plan, and counseling patient) on [DATE]. PROFEE Clinical Trials Systems Administrator Document charge(s): Yes
[2025-01-26] MEDS: FOLIC ACID 1 MG TABLET PO (09:41)
[2025-01-26] MEDS: MULTIVITAMIN 1 TABLET 1 TAB PO (09:42)
[2025-01-26] MEDS: ATORVASTATIN 20 MG TABLET 40 MG PO (09:42)
[2025-01-26] MEDS: CALCIUM CARBONATE 500 MG TAB 1000 MG PO ×2 (12:51→23:25)
[2025-01-26] MEDS: ACETAMINOPHEN 325 MG TABLET 650 MG PO ×2 (12:52→18:53)
--- NOTE | 2025-01-26 14:37 | DIET.CONS ---
Dietary Consultation Note Admission Date: 01/25/2025 19:26 Assessment: 54 y F admitted for pancreatitis. Dietitian consulted for withdrawal symptoms. Met with pt in room. Reports lost 20-25# in 4 months r/t IBS and diarrhea. Was recently prescribed medication to help control diarrhea and reports no longer losing weight and eating well. Reports good appetite, pb toast in morning, 4 small meals throughout days, does a lot of homemade bone broth. Only went 1-2 days without eating. NFPE with no significant findings. Ht: 172.72 cm Wt: 63.503 kg BMI: 21.2 UBW: 160-165# (-12.5% weight loss in 4 months, severe) Last BM: 01/25/25 (01/25/25 23:22) MNA: 7 Matt Score: 19 Diet: 01/26/25 Lunch Soft,Low Fiber (Low residue) Diet Diet Modifications: Low-fat May Advance Diet as Tolerated: No Food Texture: Level 7 - Regular Liquid Consistency: Level 0 - Thin Labs: RBC 3.55 X10^6/uL (4.0-5.2) L 01/26/25 05:33 Hgb 12.1 g/dL (12.0-16.0) 01/26/25 05:33 Hct 35.2 % (36-46) L 01/26/25 05:33 Creatinine 0.78 mg/dL (0.52-1.04) 01/26/25 05:33 Nutrition Diagnosis: Unintentional weight loss r/t alterations in GI tract aeb -20-25# in 4 months (-12.5% loss in 4 months, severe) Excessive alcohol intakes r/t alcohol misuse aeb per EMR, 4-5 tall boys per day, 24oz Interventions: Diet advanced, pt reporting good appetite and that diarrhea is no longer concern Encouraged adequate intakes, having breakfast daily, avoiding further weight loss EER: 1600 kcals (25 kcals/kg per BMI) 65 g protein (16% kcals per RDAs) Monitoring/Evaluations: PO intakes Electronically Signed by: Antonette Ortiz 01/26/25 14:37 Clinical Dietitian [address] [id number]
--- NOTE | 2025-01-26 15:12 | CM.DANOTE ---
Patient is a 54 yo female who was admitted INPT Status on 01/25/25 for Abd Pain. Pt has MEDICAID for insurance and her PCP is Dr. Akshat Mckeon at the [facility]. EMR was reviewed. Per MD, pt with hx of ETOH pancreatitis and remote meth use and admitted after n/v/abd pain for acute pancreatitis with possible necrosis and r/o gallstones. Per Surgeon, imaging did not show gallstones and not currently recommending surgical intervention but conservative tx with fluids, librium for ETOH withdrawal as pt drank the night of her admission, IV abx and slowly advance diet. Per AD Counselors, pt has active straight Medicaid for insurance. SW met bedside with pt and explained role and she confirms she lives in an apt in [place] and her oldest adult son is currently living with her also. Pt is independent at baseline and does not use DME for ambulation and drives. Pt states her son is working so her friend will provide transport home at d/c. Pt does not anticipate any discharge needs when stable. Confirms she is still established with Dr. Mckeon at [facility]. Pt reports long hx of alcohol treatment, periods of sobriety, and periods of relapse. Pt reports history of many inpt and outpt alcohol use treatment. Hx of AA. reports no other illicit drug use, just the remote meth. Reports hx of [facility], denies need for resources currently as she states she knows how to get assist if needed with ETOH. Plan: SW to follow for advancing of diet and pain control for plan of home via friend POV and outpt f/u and any further identified discharge planning needs. MIQUEL Damon Discharge Planning/Care Management CM Discharge Assessment Start: 01/25/25 21:04 Freq: Status: Active Protocol: Document 01/26/25 15:10 BF (Rec: 01/26/25 15:12 BF [id number]) Discharge Planning Assessment Assigned Discharge MIQUEL Piña Hoistman Provider [facility] Insurance Medicaid DPOA/Assigned none Designee Name Advance Directives? No Advance Directives No on File History Provided By Patient,Medical Record Has Patient been No admitted in last 30 days? Prior Living Apartment/Condo Arrangements Household Members family Comment Lives in apt and her oldest son lives with her Type of Drives own vehicle transporation used prior to admit Independent with ADL Yes 's Is patient alert and Yes oriented? Caregiver for No Another Barriers to No Discharge Discharge Plan Home Transportation States friend plans to transport at d/c Arrangement Referrals Initiated None needed Additional Comment Pt declines ETOH resources, pt has hx of tx and aware of resources Whiteboard Updated Yes in Patient Room with name and ext. # of Torch Straightener Review Status In Process Please Provide Date 01/26/25 Initial DC Assessment Was Performed Next Review Type Continued Stay Review
[2025-01-26 15:44] LABS: Lipase 2353 U/L (23-300)
[2025-01-26] MEDS: SODIUM CHLORIDE 0.9% FLUSH 10 ML IV (20:35)
[2025-01-26] MEDS: CYCLOBENZAPRINE 10 MG TABLET PO (23:25)
[2025-01-26] MEDS: ZOLPIDEM 5 MG TABLET PO (23:25)
[2025-01-27] VITALS (11 sets, daily range): BP systolic 93–114; BP diastolic 67–88; PULSE 113–133; RESP 14–20; TEMP 36.8–37.2; O2SAT 88–95
[2025-01-27] MEDS: SODIUM CHLORIDE 0.9% 1,000 ML 100 ML IV ×3 (03:46→22:46)
[2025-01-27] MEDS: PANTOPRAZOLE 40 MG VIAL IV (05:52)
--- NOTE | 2025-01-27 07:51 | PM.PN.1 ---
Subjective Subjective Interval history: Summary: The pt is a 54 yo who presents to the ER tonight due to concerns abot abdominal pain, constant , radiating to the back, the pain started about 24 hours ago, +N/V this morning, dry heaving. This will be her second time to have this pain. Typically she drinks 4-5 tall boys, 24 oz/can, mixed drinks, last drink was just prior to the onset of the pain. Never had amelia, no change in bowel habits, she has lost 25 lb over the past 4 months, she has chronic diarrhea, she does have a hx of HTN, he had a hx of EGD [address] Yancey H&P. S: She feels much better today, denies dyspnea. She was on oxygen. She was noted to be tachycardic but she denies anxiety, tremors, or abdominal pain. She was very slowly advancing diet. No BM, positive flatus, no nausea or vomiting. O: NAD, alert and oriented. Fluent speech. Lungs are clear, normal rate and effort. Heart is regular, no murmur gallop or rub. Abdomen is soft, non distended. Extremities are free of edema. IMAGING: Abdomen US: 1. Fin peripancreatic edema related to acute pancreatitis. A hypoechoic region in the pancreatic body/tail may represent focal pancreatic necrosis versus small peripancreatic collection or underlying cyst. 2. Common bile duct is dilated to 9 mm. No choledocholithiasis or cholelithiasis identified. Biliary dilatation may be reactive to the pancreatic inflammation. MRCP or ERCP could be performed for further evaluation if indicated clinically. CTAP: Acute necrotic pancreatitis. There is moderate peripancreatic edema and a focal area of parenchymal hypoenhancement in the posterior body. Distended gallbladder. No radiopaque gallstones. Ultrasound could further evaluate if needed. Edema seen surrounding the pancreas extends to the lesser sac and duodenal region. No drainable fluid collection at this time. Other incidental and nonacute findings above TODAY CXR: Right mid and lower lobe airspace opacities concerning for developing pneumonia. Recommend follow-up chest radiograph in resolution. A/P: 1. Alcoholic Pancreatits, active and improving. . 2. Alcohol use disorder, active. 3. HTN, stable. 4. Possible pneumonia, new. 5. Acute hypoxic respiratory failure, new. PLAN: -advance diet -Continue Librium 10 mg t.i.d., start now. -Add Abx (Ceftriaxone and azith) -increase activity, out of bed to chair. CAROL: 1-2 days. Exam Vital Signs (past 8 hours): - 01/27/25 00:00 01/27/25 06:35 Temperature 98.5 F 98.5 F Pulse Rate 118 H 118 H Respiratory Rate 16 20 Blood Pressure 103/78 111/88 Pulse Oximetry 88 L 91 Oxygen Flow Rate 0 2 Oxygen Delivery Method Room Air Oxygen Flow Rate 2 Objective Labs 01/27/25 08:41 01/27/25 08:41 Labs: Laboratory Results - last 24 hr 01/26/25 05:33 Lipase 2353 H [facility] Medical History (Updated 01/25/25 @ 19:47 by Fazal Brown DO) Anxiety (2006) Chickenpox (1977) Chronic back pain (1994) Fibroids (Unknown) Heavy menstrual period (1991) Painful menstrual periods (1991) Endometriosis (1991) Genital warts (1991) Chlamydia (1985) Abnormal Pap smear of cervix (1991) Frequent UTI (Unknown) IBS (irritable bowel syndrome) (2007) Depression (2006) Surgical History Hx of tubal ligation (1994) Hx of tonsillectomy (1978) Family History Father Age: 76 Heart disease Hypertension High cholesterol Mother Mental health problem Grandfather Heart disease Hypertension Grandmother No problems noted. Grandfather No problems noted. Grandmother Cancer Social History household members: family Smoking Status: Current every day smoker alcohol intake: current Assessment & Plan Time-Based Coding :: [TOTAL MINUTES] spent with patient and on the chart (including review of chart, obtaining history, exam, reviewing outside data, placing orders, documenting exam and treatment plan, and counseling patient) on [DATE].
[2025-01-27 08:53] LABS: Hematocrit 31.0 % (36-46); Hemoglobin 10.5 g/dL (12.0-16.0); Mean Corpuscular HGB Conc 33.9 % (30-36); Mean Corpuscular Hemoglobin 34.2 PG (26-34); Mean Corpuscular Volume 100.7 fL (80-100); Platelet Count 173 X10^3/uL (150-400)
[2025-01-27] MEDS: ATORVASTATIN 20 MG TABLET 40 MG PO (08:57)
[2025-01-27] MEDS: FOLIC ACID 1 MG TABLET PO (08:58)
[2025-01-27] MEDS: THIAMINE 100 MG TABLET PO (08:59)
[2025-01-27] MEDS: MULTIVITAMIN 1 TABLET 1 TAB PO (09:01)
[2025-01-27 09:03] LABS: Alanine Aminotransferase 17 IU/L (<35); Albumin 3.3 g/dL (3.5-5.0); Albumin Globulin Ratio 1.1 (1.0-2.8); Alkaline Phosphatase 127 U/L (38-126); Blood Urea Nitrogen 9 mg/dL (7-17); Calcium 8.1 mg/dL (8.4-10.2); Carbon Dioxide 20 mmol/L (22-32); Chloride 106 mmol/L (98-107); Cholesterol 106 mg/dL (140-199); Estimated Glomerular Filt Rate > 60 mL/min (>60); Globulin 3.0 g/dL (1.7-4.1); Glucose 93 mg/dL (70-99); HDL Cholesterol 61 mg/dL (40-60); HEMOLYSIS < 15 (0-50); Lipase 432 U/L (23-300); Potassium 3.7 mmol/L (3.4-5.1); Sodium 134 mmol/L (137-145); Total Protein 6.3 g/dL (6.3-8.2); Triglycerides 83 mg/dL (35-150)
--- NOTE | 2025-01-27 12:04 | DI.RAD.S_ITS ---
PROCEDURE: XR CHEST 1V INDICATIONS: Dyspnea TECHNIQUE: One view of the chest was acquired. COMPARISON: [facility], CT, CT ABDOMEN PELVIS W CON, 01/25/2025, 17:10 4-6 weeks to document. [facility], CR, XR CHEST 1V, 10/05/2023, 8:35. [facility], CR, XR CHEST 1V, 06/30/2023, 21:18. FINDINGS: Patient is mildly rotated to the right. Surgical changes and devices: None. Lungs and pleura: Right mid and lower lobe airspace opacities. Trace right pleural effusion. No pneumothorax. Mediastinum: Mediastinal contours appear normal. Heart size is normal. Bones and chest wall: No suspicious bony lesions. Overlying soft tissues appear unremarkable. IMPRESSION: Right mid and lower lobe airspace opacities concerning for developing pneumonia. Recommend follow-up chest radiograph in resolution. Dictated by: Haider Gibson M.D. on 01/27/2025 at 12:55 Approved by: Haider Gibson M.D. on 01/27/2025 at 12:56
[2025-01-27] MEDS: SODIUM CHLORIDE 0.9% FLUSH 10 ML IV (12:11)
[2025-01-27] MEDS: cefTRIAXone 2,000 MG in SODIUM CHLORIDE 0.9% 100 ML 200 MG IV (15:16)
[2025-01-27] MEDS: AZITHROMYCIN 500 MG in DEXTROSE 5% IN WATER 250 ML 250 MG IV (16:11)
[2025-01-27] MEDS: PROCHLORPERAZINE 10 MG/2 ML VIAL IV (17:18)
[2025-01-28] VITALS (25 sets, daily range): BP systolic 96–118; BP diastolic 71–85; PULSE 108–126; RESP 18–59; TEMP 36.4–37.1; O2SAT 89–98
[2025-01-28] MEDS: ALBUTEROL 2.5 MG/3 ML NEB (ADULT) INH ×3 (00:52→07:20)
[2025-01-28] MEDS: ACETAMINOPHEN 325 MG TABLET 650 MG PO ×3 (01:12→20:51)
--- NOTE | 2025-01-28 03:41 | DI.RAD.S_ITS ---
PROCEDURE: XR CHEST 1V INDICATIONS: increase o2 demand TECHNIQUE: One view of the chest was acquired. COMPARISON: [facility], CR, XR CHEST 1V, 01/27/2025, 11:57. [facility], CR, XR CHEST 1V, 10/05/2023, 8:35. FINDINGS: Surgical changes and devices: None. Lungs and pleura: Prominent interstitial markings in the lower lung cheng bilaterally. No pleural effusions or pneumothorax. Mediastinum: Mediastinal contours appear normal. Heart size is normal. Bones and chest wall: No suspicious bony lesions. Overlying soft tissues appear unremarkable. IMPRESSION: Prominent interstitial markings in the lower lung cheng bilaterally. Findings are concerning for pulmonary edema versus infection. Dictated by: Chente Perez M.D. on 01/28/2025 at 6:06 Approved by: Chente Perez M.D. on 01/28/2025 at 6:07
[2025-01-28 04:01] LABS: Base Excess VBG -3.2 mmol/L (0-4); HCO3 VBG 21 mmol/L (24-28); Oxygen Saturation VBG 56 % (70-75); PCO2 VBG 32.3 mmHg (45-50); PO2 VBG 28 mmHg (35-45); Total CO2 VBG 20 mmol/L (24-29); pH VBG 7.42 (7.33-7.43)
--- NOTE | 2025-01-28 05:43 | RT ---
Patient demand for O2 increased t/o director of analytics. increased from 4L NC to 6-8L oximask. Spo2 stayed in 88-90% range and would drop with any exertion. Post VBG, O2 increased to 10L to HFNC. Started on 25L & 50% Fio2. Tolerating well, Spo2 increased to 96%. PARK Saba aware and present t/o
[2025-01-28 06:57] LABS: Add Manual Diff / Slide Review NO; Hematocrit 28.4 % (36-46); Hemoglobin 9.7 g/dL (12.0-16.0); Lymphocytes Absolute Auto 1800 /uL (1100-4500); Mean Corpuscular HGB Conc 34.2 % (30-36); Mean Corpuscular Hemoglobin 34.9 PG (26-34); Mean Corpuscular Volume 101.8 fL (80-100); Platelet Count 148 X10^3/uL (150-400)
[2025-01-28 07:03] LABS: Blood Urea Nitrogen 7 mg/dL (7-17); Calcium 7.8 mg/dL (8.4-10.2); Carbon Dioxide 19 mmol/L (22-32); Chloride 105 mmol/L (98-107); Estimated Glomerular Filt Rate > 60 mL/min (>60); Glucose 78 mg/dL (70-99); HEMOLYSIS < 15 (0-50); Potassium 3.3 mmol/L (3.4-5.1); Sodium 134 mmol/L (137-145)
--- NOTE | 2025-01-28 07:11 | P.PN_ITS ---
Subjective Subjective Date Patient Seen: 01/28/25 Interval history: The [facility] is a 54 [facility], constant, radiating to the back, the pain started about 24 hours ago, +N/V this morning, dry heaving. This will be her second time to have this pain. Typically she drinks 4-5 tall boys, 24 oz/can, mixed drinks, last drink was just prior to the onset of the pain. Never had amelia, no change in bowel habits, she has lost 25 lb over the past 4 months, she has chronic diarrhea, she does have a hx of HTN, he had a hx of EGD [address] Yancey H&P. 01/27: She feels much better today, denies dyspnea. She was on oxygen. She was noted to be tachycardic but she denies anxiety, tremors, or abdominal pain. She was very slowly advancing diet. No BM, positive flatus, no nausea or vomiting. 01/28: Overnight she went into a respiratory crisis and this morning is on 40% high-flow nasal cannula, up from 3 L nasal cannula. Chest x-ray reveals pulmonary edema. Chest CT angiogram shows no pulmonary embolus and confirms the pulmonary edema. Her IV fluid has been stopped and she will receive a dose of Lasix. She is transferred to the intensive care unit. The potassium is 3.3 so she will receive 20 mEq IV. The creatinine is 0.7. The white blood count is 10.6 with a hemoglobin of 9.7. The lipase has come down to 432. O: NAD, alert and oriented. Halting speech, in respiratory distress currently. Lungs are clear, normal rate and effort. Heart is regular, no murmur gallop or rub. Abdomen is soft, non distended. Extremities are free of edema. IMAGING: Abdomen US: 1. Fin peripancreatic edema related to acute pancreatitis. A hypoechoic region in the pancreatic body/tail may represent focal pancreatic necrosis versus small peripancreatic collection or underlying cyst. 2. Common bile duct is dilated to 9 mm. No choledocholithiasis or cholelithiasis identified. Biliary dilatation may be reactive to the pancreatic inflammation. MRCP or ERCP could be performed for further evaluation if indicated clinically. CTAP: Acute necrotic pancreatitis. There is moderate peripancreatic edema and a focal area of parenchymal hypoenhancement in the posterior body. Distended gallbladder. No radiopaque gallstones. Ultrasound could further evaluate if needed. Edema seen surrounding the pancreas extends to the lesser sac and duodenal region. No drainable fluid collection at this time. Other incidental and nonacute findings above A/P: 1. Alcoholic Pancreatits, active and improving. 2. Alcohol use disorder, active. 3. HTN, stable. 4. Pulmonary Edema/Fluid Overload 4. Possible pneumonia, new. 5. Acute hypoxic respiratory failure, new. PLAN: -advance diet -stop IV fluid and give Lasix x1 -Continue Librium 10 mg t.i.d. -Ceftriaxone and azith -increase activity, out of bed to chair. -transferred to intensive care unit -check BNP and troponin CAROL: 2-3 days. Exam Vital Signs (past 8 hours): - 01/28/25 00:00 01/28/25 01:01 01/28/25 03:23 Temperature 98.6 F Pulse Rate 111 H 117 H 111 H Respiratory Rate 18 20 20 Blood Pressure 96/72 Pulse Oximetry 93 98 92 Oxygen Delivery Method Nasal Cannula Aerosol Mask Oxygen Flow Rate 3 4 8 Fraction of Inspired Oxygen 36 50 01/28/25 04:00 01/28/25 05:40 Temperature 98.1 F Pulse Rate 111 H 111 H Respiratory Rate 20 20 Blood Pressure 118/83 Pulse Oximetry 92 94 Oxygen Delivery Method High Flow Nasal Cannula Oxygen Flow Rate 10 25 Fraction of Inspired Oxygen 50 Fraction of Inspired Oxygen 50 SaO2/FiO2 Ratio 192 Oxygen Delivery Method High Flow Nasal Cannula Oxygen Flow Rate 25 Objective Labs 01/28/25 06:33 01/28/25 06:33 Labs: Laboratory Results - last 24 hr 01/27/25 01/28/25 08:41 03:57 WBC 12.3 H RBC 3.08 L Hgb 10.5 L Hct 31.0 L MCV 100.7 H MCH 34.2 H MCHC 33.9 RDW 15.1 H Plt Count 173 VBG pH 7.42 VBG pCO2 32.3 L VBG pO2 28 L VBG HCO3 21 L VBG Total CO2 20 L VBG O2 Saturation 56 L VBG Base Excess -3.2 L Sodium 134 L Potassium 3.7 Chloride 106 Carbon Dioxide 20 L BUN 9 Creatinine 0.69 Estimated GFR > 60 BUN/Creatinine Ratio 13.0 Glucose 93 Calcium 8.1 L Total Bilirubin 0.7 AST 44 H ALT 17 Alkaline Phosphatase 127 H Total Protein 6.3 Albumin 3.3 L Globulin 3.0 Albumin/Globulin Ratio 1.1 Triglycerides 83 Cholesterol 106 L LDL Cholesterol, Calc 28 HDL Cholesterol 61 H Lipase 432 H D [facility] Medical History (Updated 01/25/25 @ 19:47 by Fazal Brown DO) Anxiety (2006) Chickenpox (1977) Chronic back pain (1994) Fibroids (Unknown) Heavy menstrual period (1991) Painful menstrual periods (1991) Endometriosis (1991) Genital warts (1991) Chlamydia (1985) Abnormal Pap smear of cervix (1991) Frequent UTI (Unknown) IBS (irritable bowel syndrome) (2007) Depression (2006) Surgical History Hx of tubal ligation (1994) Hx of tonsillectomy (1978) Family History Father Age: 76 Heart disease Hypertension High cholesterol Mother Mental health problem Grandfather Heart disease Hypertension Grandmother No problems noted. Grandfather No problems noted. Grandmother Cancer Social History household members: family Smoking Status: Current every day smoker alcohol intake: current Assessment & Plan Time-Based Coding :: [TOTAL MINUTES] spent with patient and on the chart (including review of chart, obtaining history, exam, reviewing outside data, placing orders, documenting exam and treatment plan, and counseling patient) on [DATE].
[2025-01-28 09:16] LABS: Acinetobacter calcoa-baumannii Not Detected (Not Detect); Bacteroides fragilis Not Detected (Not Detect); Candida auris Not Detected (Not Detect); Candida glabrata Not Detected (Not Detect); Cryptococcus neoformans/gatti Not Detected (Not Detect); Enterobacterales Not Detected (Not Detect); Enterococcus faecalis Not Detected (Not Detect); Enterococcus faecium Not Detected (Not Detect); Klebsiella aerogenes Not Detected (Not Detect); Proteus species Not Detected (Not Detect); Serratia marcescens Not Detected (Not Detect); Staphylococcus epidermidis Not Detected (Not Detect); Staphylococcus lugdunensis Not Detected (Not Detect); Staphylococcus species Detected (Not Detect); Stenotrophomonas maltophilia Not Detected (Not Detect); Streptococcus agalactiae (Gr B Not Detected (Not Detect); Streptococcus pneumonia Not Detected (Not Detect); Streptococcus pyogenes (Gr A) Not Detected (Not Detect); Streptococcus species Not Detected (Not Detect)
[2025-01-28] MEDS: ATORVASTATIN 20 MG TABLET 40 MG PO (09:26)
[2025-01-28] MEDS: THIAMINE 100 MG TABLET PO (09:26)
[2025-01-28] MEDS: PANTOPRAZOLE DR 40 MG TABLET PO (09:27)
[2025-01-28] MEDS: MULTIVITAMIN 1 TABLET 1 TAB PO (09:27)
[2025-01-28] MEDS: FOLIC ACID 1 MG TABLET PO (09:27)
[2025-01-28] MEDS: POTASSIUM CHLORIDE IN WATER 10 MEQ/100 ML PIGGYBACK 100 MEQ IV (09:30)
--- NOTE | 2025-01-28 09:46 | DI.CT.S_ITS ---
PROCEDURE: CT ANGIO CHEST PE PROTOCOL INDICATIONS: R/o PE TECHNIQUE: After the administration of intravenous contrast, 2 mm thick sections acquired from the pulmonary apices to the posterior costophrenic angles. 3-dimensional maximum intensity projection (MIP) coronal and sagittal reformats were then acquired through the thorax. For radiation dose reduction, the following was used: automated exposure control, adjustment of mA and/or kV according to patient size. COMPARISON: None. FINDINGS: Image quality: Diagnostic. Pulmonary arteries: Pulmonary arteries are normal in size, and demonstrate no intraluminal filling defects to suggest central pulmonary embolism. Lower Neck: No enlarged lymph nodes. Thyroid: No thyroid nodules which require sonographic follow up, per consensus guidelines. Axillae: No enlarged lymph nodes. Chest Wall: Unremarkable. Bones: Degenerative changes of the spine. Decreased osseous mineralization. Lungs and Pleura: Small to moderate right and small left pleural effusions with adjacent atelectasis versus consolidation. Diffuse interlobular septal thickening, more pronounced within the lower lung cheng. Patchy ground-glass opacities, most pronounced within the lung apices. Heart: Heart size is normal. Left ventricle appears enlarged compared to the right. No pericardial effusion. Thoracic Vessels: No aortic aneurysm. Mediastinum and Lily: No enlarged lymph nodes. Esophagus: No wall thickening. No hiatal hernia. Upper Abdomen: Peripancreatic edema is redemonstrated. IMPRESSION: No pulmonary embolus. Small to moderate right and small left pleural effusions with adjacent atelectasis versus consolidation. Diffuse interlobular septal thickening, more pronounced within the lower lung cheng, consistent with pulmonary edema. Patchy ground-glass opacities, most pronounced within the lung apices, may represent superimposed infection. Left ventricle appears enlarged compared to the right. Partially visualized peripancreatic edema is redemonstrated, better evaluated on recent prior CT abdomen pelvis. Dictated by: Chente Perez M.D. on 01/28/2025 at 10:55 Approved by: Chente Perez M.D. on 01/28/2025 at 11:01
[2025-01-28] MEDS: POTASSIUM CHLORIDE 20 MEQ TAB PO (11:11)
[2025-01-28] MEDS: NICOTINE 21 MG PATCH TOP (11:11)
[2025-01-28] MEDS: FUROSEMIDE 40 MG/4 ML VIAL IV ×2 (12:24→16:55)
[2025-01-28] MEDS: cefTRIAXone 2,000 MG in SODIUM CHLORIDE 0.9% 100 ML 200 MG IV (15:52)
[2025-01-28 16:13] LABS: NT-proBNP (BNP-Adult 18+) 21300 pg/mL (<125)
[2025-01-28 16:15] LABS: Troponin I 0.622 ng/mL (0.01-0.034)
--- NOTE | 2025-01-28 16:23 | DI.ECHO.S_ITS ---
[place] [facility] : : [address] : : [place] : : [id number] : : Phone: [phone] Echocardiogram Report + + :Name: NIK ROB Study Date: 01/29/2025 Height: 68 in : :[facility] ReadingLocation: Weight: 309 lb: : Gender: Female BSA: 2.5 m2 : :: 1970 Age: 54 yrs BP: 96/69 mmHg: :Reason For Study: Myocaridal Ischemia : :Ordering Physician: MAGNUS, : :JONES Muller Performed By: Iván You : :Referring: JONES AGUDELO : + + Interpretation Summary 1) Normal left ventricular size and thickness with moderately reduced systolic function (EF 30-35%). 2) The basal to mid anterolateral wall, basal inferoseptum, basal to mid inferolateral wall, basal inferior wall, and basal to mid anterior wall are severely hypokinetic to akinetic. 3) Normal right ventricular size and function. 4) No significant valvular abnormalities. 5) No prior Echo available for comparison. Procedure: A two-dimensional transthoracic echocardiogram with color flow and Doppler was performed. The study quality was technically adequate. There is no prior echocardiogram noted for this patient. The patient was in normal sinus rhythm during the exam. Left Ventricle: The left ventricle is normal in size and wall thickness. Left ventricular systolic function is moderately reduced. The ejection fraction is estimated to be 30-35%. The basal to mid anterolateral wall, basal inferoseptum, basal to mid inferolateral wall, basal inferior wall, and basal to mid anterior wall are severely hypokinetic to akinetic. Diastolic function is indeterminate. Right Ventricle: The right ventricle is normal in size and function. Atria: The left atrial size is normal. Right atrial size is normal. There is no Doppler evidence for an interatrial shunt. Mitral Valve: The mitral valve leaflets appear to open well. There is no mitral valve stenosis. There is trace mitral regurgitation. Aortic Valve: The aortic valve is trileaflet. The aortic valve opens well. There is no aortic valve stenosis. No aortic regurgitation is present. Tricuspid Valve: The tricuspid valve leaflets are thin and pliable. There is mild tricuspid regurgitation. The right ventricular systolic pressure is estimated to be at least 19 mmHg based on an estimated right atrial pressure of 3 mm Hg. Pulmonic Valve: The pulmonic valve is not well seen, but is grossly normal. There is trace pulmonic regurgitation. Great Vessels: The aortic root is normal size. The ascending aorta is normal in size. The aortic arch could not be visualized. The pulmonary artery is normal size. The IVC is of normal diameter and collapses greater than 50% with a sniff. This suggests a low right atrial pressure of 3 mm Hg. Pericardium/ Pleura There is no pericardial effusion. MMode/2D Measurements & Calculations LVIDd: 6.0 cm LVOT diam: 2.2 cm LVIDs: 5.1 cm Ao root diam: 3.2 cm FS: 15.1 % asc Aorta Diam: 3.1 cm EPSS: 1.7 cm IVSd: 0.82 cm LVPWd: 0.84 cm LV betancourt. diameter/BSA (cm/m^2): 2.4 LV sys. diameter/BSA (cm/m^2): 2.1 LA A2 area: 15.2 cm2 IVC diam: 1.9 cm LA A4 area: 15.1 cm2 LA length (vol): 4.9 cm LA vol: 39.7 ml LA vol index: 16.2 ml/m2 RVD1 (basal): 3.1 cm RVD2 (mid): 3.2 cm TAPSE: 1.9 cm Doppler Measurements & Calculations Ao V2 max: 142.8 cm/sec LVOT Max Mauricio: 79.0 cm/sec Ao V2 mean: 105.4 cm/sec LV V1 max P.5 mmHg Ao max P.2 mmHg LV V1 VTI: 13.8 cm Ao mean P.8 mmHg RENÉ(I,D): 2.3 cm2 Ao V2 VTI: 22.3 cm RENÉ(V,D): 2.1 cm2 sev ratio: 0.62 RENÉ indexed to BSA (cm^2/m^2): 0.94 MV E max mauricio: 64.5 cm/sec TR max mauricio: 201.6 cm/sec MV A max mauricio: 59.1 cm/sec TR max P.4 mmHg MV E/A: 1.1 PA V2 max: 56.9 cm/sec Med Peak E' Mauricio: 5.5 cm/sec PA V2 mean: 40.0 cm/sec E/E' med: 11.7 PA mean P.72 mmHg Lat Peak E' Mauricio: 8.0 cm/sec PA pr(Accel): 57.2 mmHg E/E' lat: 8.0 E/e' average: 9.9 MV dec time: 0.13 sec SV(LVOT): 51.7 ml Qp/Qs (V,Ao): 1.0/8.2 Qp/Qs (V,LVOT): 1.0/2.2 Reading Physician:12:47 PM
--- NOTE | 2025-01-28 16:31 | EKG_ITS ---
[facility] [address] [place] [address] Test Date: 2025-01-28 Pat Name: Ines Novoa Department: [facility] Room: 231 Gender: Female Photo Tech: CHEMA : 1970 Requested By: Order Number: [id number] Reading MD: Luca Mina Measurements Intervals [place] Rate: 114 P: 54 AR: 150 QRS: 57 QRSD: 88 T: 112 QT: 348 QTc: 479 Interpretive Statements Sinus tachycardia Nonspecific ST and T wave abnormality Electronically Signed On 01-28-2025 16:39:07 PDT by Luca Mina
[2025-01-28] MEDS: AZITHROMYCIN 500 MG in DEXTROSE 5% IN WATER 250 ML 250 MG IV (16:55)
[2025-01-29] VITALS (45 sets, daily range): BP systolic 80–108; BP diastolic 54–77; PULSE 64–104; RESP 17–55; TEMP 36.2–37.1; O2SAT 86–100
[2025-01-29 01:14] LABS: Troponin I 0.371 ng/mL (0.01-0.034)
[2025-01-29] MEDS: DICYCLOMINE 10 MG CAPSULE 20 MG PO ×4 (01:40→21:08)
[2025-01-29] MEDS: tiZANidine 4 MG TABLET 2 MG PO ×3 (01:41→21:08)
[2025-01-29 05:08] LABS: Add Manual Diff / Slide Review NO; Hematocrit 27.2 % (36-46); Hemoglobin 9.5 g/dL (12.0-16.0); Lymphocytes Absolute Auto 300 /uL (1100-4500); Mean Corpuscular HGB Conc 34.9 % (30-36); Mean Corpuscular Hemoglobin 35.3 PG (26-34); Mean Corpuscular Volume 101.0 fL (80-100); Platelet Count 129 X10^3/uL (150-400)
[2025-01-29 05:22] LABS: Blood Urea Nitrogen 10 mg/dL (7-17); Calcium 7.8 mg/dL (8.4-10.2); Carbon Dioxide 18 mmol/L (22-32); Chloride 101 mmol/L (98-107); Estimated Glomerular Filt Rate > 60 mL/min (>60); Glucose 156 mg/dL (70-99); HEMOLYSIS < 15 (0-50); Potassium 3.3 mmol/L (3.4-5.1); Sodium 131 mmol/L (137-145)
--- NOTE | 2025-01-29 08:23 | P.PN_ITS ---
Subjective Subjective Date Patient Seen: 01/29/25 Interval history: The pt is a 54 yo [facility] concerns abot abdominal pain, constant, radiating to the back, the pain started about 24 hours ago, +N/V this morning, dry heaving. This will be her second time to have this pain. Typically she drinks 4-5 tall boys, 24 oz/can, mixed drinks, last drink was just prior to the onset of the pain. Never had amelia, no change in bowel habits, she has lost 25 lb over the past 4 months, she has chronic diarrhea, she does have a hx of HTN, he had a hx of EGD [address] Yancey H&P. 01/27: She feels much better today, denies dyspnea. She was on oxygen. She was noted to be tachycardic but she denies anxiety, tremors, or abdominal pain. She was very slowly advancing diet. No BM, positive flatus, no nausea or vomiting. 01/28: Overnight she went into a respiratory crisis and this morning is on 40% high-flow nasal cannula, up from 3 L nasal cannula. Chest x-ray reveals pulmonary edema. Chest CT angiogram shows no pulmonary embolus and confirms the pulmonary edema. Her IV fluid has been stopped and she will receive a dose of Lasix. She is transferred to the intensive care unit. The potassium is 3.3 so she will receive 20 mEq IV. The creatinine is 0.7. The white blood count is 10.6 with a hemoglobin of 9.7. The lipase has come down to 432. 01/29: The troponin level yesterday afternoon was quite high at 0.6-2, dropping to 0.371 this morning. She was started on dexamethasone for possible ARDS and this morning feels compellingly better. She has not had any shortness of breath or chest pain since yesterday morning. Her echocardiogram shows an EF of 30-35% with many wall areas of hypokinesis and akinesis. She was seen by Cardiology today and discussed with Dr. Flores. She will be started on aspirin and as her blood pressure/heart rate tolerate it will be also started on metoprolol, Entresto and spironolactone. She will ultimately need a heart catheterization so will also be checked for viral hepatitis and HIV. O: NAD, alert and oriented. Sitting up, walking around, looking much much better. Lungs are clear, normal rate and effort. Heart is regular, no murmur gallop or rub. Abdomen is soft, non distended. Not tender. Extremities are free of edema. IMAGING: Abdomen US: 1. Fin peripancreatic edema related to acute pancreatitis. A hypoechoic region in the pancreatic body/tail may represent focal pancreatic necrosis versus small peripancreatic collection or underlying cyst. 2. Common bile duct is dilated to 9 mm. No choledocholithiasis or cholelithiasis identified. Biliary dilatation may be reactive to the pancreatic inflammation. MRCP or ERCP could be performed for further evaluation if indicated clinically. CTAP: Acute necrotic pancreatitis. There is moderate peripancreatic edema and a focal area of parenchymal hypoenhancement in the posterior body. Distended gallbladder. No radiopaque gallstones. Ultrasound could further evaluate if needed. Edema seen surrounding the pancreas extends to the lesser sac and duodenal region. No drainable fluid collection at this time. Other incidental and nonacute findings above A/P: 1. Alcoholic Pancreatits, active and improving. 2. Alcohol use disorder, active. 3. HTN, stable. 4. Pulmonary Edema/Fluid Overload 4. Possible pneumonia, new. 5. Acute hypoxic respiratory failure, new. 6. CHF with Elevated Troponin/NSTEMI PLAN: -stopped IVF and received Lasix X 2 yesterday. -Continue Librium 10 mg t.i.d. -Ceftriaxone and azith stopped on 01/29 -Monitor BP and HR on the new CHF medicines -begin aspirin and low-dose metoprolol succinate. Add Entresto and spironolactone as blood pressure tolerates. -check HIV, hepatitis viral studies. -echocardiogram done and Cardiology consulted today. Disposition: 1 more day returning home. Exam Vital Signs (past 8 hours): - 01/29/25 04:00 01/29/25 07:00 01/29/25 07:21 Temperature 97.5 F L Pulse Rate 82 Respiratory Rate 20 Blood Pressure 92/68 Pulse Oximetry 97 100 100 Oxygen Delivery Method Nasal Cannula High Flow Nasal Cannula Oxygen Flow Rate 7 7 7 01/29/25 08:11 Temperature 97.2 F L Pulse Rate 83 Respiratory Rate 24 Blood Pressure 96/69 Pulse Oximetry 96 Oxygen Delivery Method Oxygen Flow Rate 7 Fraction of Inspired Oxygen 35 SaO2/FiO2 Ratio 268 Oxygen Delivery Method High Flow Nasal Cannula Oxygen Flow Rate 7 Objective Labs 01/29/25 04:30 01/29/25 04:30 Labs: Laboratory Results - last 24 hr 01/27/25 01/28/25 01/29/25 15:26 15:41 00:30 WBC RBC Hgb Hct MCV MCH MCHC RDW Plt Count Neut % (Auto) Lymph % (Auto) Mccone % (Auto) Eos % (Auto) Baso % (Auto) Neut # (Auto) Lymph # (Auto) Mccone # (Auto) Eos # (Auto) Baso # (Auto) Sodium Potassium Chloride Carbon Dioxide BUN Creatinine Estimated GFR BUN/Creatinine Ratio Glucose Calcium Troponin I 0.622 H* 0.371 H* NT-Pro-B Natriuret Pep 84904 H A.calcoaceticus-baumannii cmplx PCR Not detected Bacteroides fragilis Not detected Sindhu albicans (PCR) Not detected Sindhu auris (PCR) Not detected C. glabrata (PCR) Not detected C. krusei (PCR) Not detected C. parapsilosis (PCR) Not detected C. tropicalis (PCR) Not detected C. neoform/gattii (PCR) Not detected Enterobacterales (PCR) Not detected E. cloacae complex PCR Not detected Enterococc faecalis PCR Not detected Enterococc faecium PCR Not detected E. coli (PCR) Not detected H. influenzae (PCR) Not detected Klebsiella aerogenes (PCR) Not detected Klebsiella oxytoca PCR Not detected Klebsiella pneumoniae Not detected List. monocytogenes PCR Not detected N. meningitidis (PCR) Not detected Proteus species (PCR) Not detected Salmonella spp. (PCR) Not detected Serratia marcescens PCR Not detected Staphylococcus sp PCR Detected Staph aureus (PCR) Not detected mecA/C & MREJ Resist Gene Not applicable mecA/C-Methicil Resis Gene Not applicable mcr-1 Colistin Res Gene PCR Not applicable Staph epidermidis (PCR) Not detected Staph lugdunensis PCR Not detected S. maltophilia (PCR) Not detected Streptococcus sp PCR Not detected Group A Strep (PCR) Not detected Strep agalactiae (PCR) Not detected Strep pneumoniae (PCR) Not detected P. aeruginosa (PCR) Not detected Tiffany/B-Vanco Res Genes Not applicable blaIMP Car res Gene PCR Not applicable KPC-Carbap Res Gene PCR Not applicable blaNDM Car Res Gene PCR Not applicable OXA-48 Carbapenem Resis Gene (PCR) Not applicable blaVIM Car Res Gene PCR Not applicable CTX-M Gene Resistance (PCR) Not applicable 01/29/25 04:30 WBC 4.4 L D RBC 2.69 L Hgb 9.5 L Hct 27.2 L MCV 101.0 H MCH 35.3 H MCHC 34.9 RDW 15.0 H Plt Count 129 L Neut % (Auto) 89.8 H Lymph % (Auto) 7.9 L Mccone % (Auto) 2.1 L Eos % (Auto) 0.0 L Baso % (Auto) 0.2 Neut # (Auto) 4000 Lymph # (Auto) 300 L Mccone # (Auto) 100 Eos # (Auto) 0 Baso # (Auto) 0 Sodium 131 L Potassium 3.3 L Chloride 101 Carbon Dioxide 18 L BUN 10 Creatinine 0.73 Estimated GFR > 60 BUN/Creatinine Ratio 13.7 Glucose 156 H Calcium 7.8 L Troponin I NT-Pro-B Natriuret Pep A.calcoaceticus-baumannii cmplx PCR Bacteroides fragilis Sindhu albicans (PCR) Sindhu auris (PCR) C. glabrata (PCR) C. krusei (PCR) C. parapsilosis (PCR) C. tropicalis (PCR) C. neoform/gattii (PCR) Enterobacterales (PCR) E. cloacae complex PCR Enterococc faecalis PCR Enterococc faecium PCR E. coli (PCR) H. influenzae (PCR) Klebsiella aerogenes (PCR) Klebsiella oxytoca PCR Klebsiella pneumoniae List. monocytogenes PCR N. meningitidis (PCR) Proteus species (PCR) Salmonella spp. (PCR) Serratia marcescens PCR Staphylococcus sp PCR Staph aureus (PCR) mecA/C & MREJ Resist Gene mecA/C-Methicil Resis Gene mcr-1 Colistin Res Gene PCR Staph epidermidis (PCR) Staph lugdunensis PCR S. maltophilia (PCR) Streptococcus sp PCR Group A Strep (PCR) Strep agalactiae (PCR) Strep pneumoniae (PCR) P. aeruginosa (PCR) Tiffany/B-Vanco Res Genes blaIMP Car res Gene PCR KPC-Carbap Res Gene PCR blaNDM Car Res Gene PCR OXA-48 Carbapenem Resis Gene (PCR) blaVIM Car Res Gene PCR CTX-M Gene Resistance (PCR) [facility] Medical History (Updated 01/29/25 @ 15:12 by Heath Flores MD) Anxiety (2006) Chickenpox (1977) Chronic back pain (1994) Fibroids (Unknown) Heavy menstrual period (1991) Painful menstrual periods (1991) Endometriosis (1991) Genital warts (1991) Chlamydia (1985) Abnormal Pap smear of cervix (1991) Frequent UTI (Unknown) IBS (irritable bowel syndrome) (2007) Depression (2006) Surgical History Hx of tubal ligation (1994) Hx of tonsillectomy (1978) Family History Father Age: 77 Heart disease Hypertension High cholesterol Mother Mental health problem Grandfather Heart disease Hypertension Grandmother No problems noted. Grandfather No problems noted. 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 Assessment & Plan Time-Based Coding :: [TOTAL MINUTES] spent with patient and on the chart (including review of chart, obtaining history, exam, reviewing outside data, placing orders, documenting exam and treatment plan, and counseling patient) on [DATE].
[2025-01-29] MEDS: ACETAMINOPHEN 325 MG TABLET 650 MG PO ×2 (08:32→13:20)
[2025-01-29] MEDS: FOLIC ACID 1 MG TABLET PO (08:35)
[2025-01-29] MEDS: THIAMINE 100 MG TABLET PO (08:35)
[2025-01-29] MEDS: MULTIVITAMIN 1 TABLET 1 TAB PO (08:35)
[2025-01-29] MEDS: ATORVASTATIN 20 MG TABLET 40 MG PO (08:35)
[2025-01-29] MEDS: NICOTINE 21 MG PATCH TOP (08:36)
[2025-01-29] MEDS: PANTOPRAZOLE DR 40 MG TABLET PO (08:36)
[2025-01-29] MEDS: SODIUM CHLORIDE 0.9% FLUSH 10 ML IV ×2 (08:39→21:09)
[2025-01-29 09:14] LABS: Troponin I 0.239 ng/mL (0.01-0.034)
[2025-01-29] MEDS: cefTRIAXone 2,000 MG in SODIUM CHLORIDE 0.9% 100 ML 200 MG IV (14:11)
--- NOTE | 2025-01-29 14:11 | PM.CN ---
History of Present Illness Consult details Date Patient Seen: 01/29/25 Time Patient Seen: 14:27 Chief complaint: per pt pancreatitis attack Reason for consult: Acute systolic heart failure Narrative: 54-year-old female with past medical history of heavy alcohol abuse, smoking admitted to the hospital with nausea vomiting abdominal pain. She has a past medical history significant for hypertension gastroesophageal reflux disease rectal prolapse, depression chronic back pain secondary to work-related injury admitted to the hospital. She developed acute respiratory distress requiring high-flow oxygen. There was a suspected diagnosis of ARDS secondary to acute pancreatitis. Patient was started on diuretics and high-dose steroids. She had elevated troponin of 0.6 to 2 now trending down. EKG showed normal sinus rhythm with nonspecific ST-T changes. I was asked to see this patient for new onset acute systolic heart failure with wall motion abnormalities and suspected pulmonary edema versus acute respiratory distress syndrome (ARDS). Meds Home Medications and Allergies Home Medications ?Medication ?Instructions ?Recorded ?Confirmed ?Type atorvastatin 40 mg tablet 40 mg PO DAILY 10/05/23 01/25/25 History loperamide 2 mg capsule 2 mg PO 4XD PRN Diarrhea 10/05/23 01/25/25 History losartan 50 mg-hydrochlorothiazide 1 tab PO DAILY 10/05/23 01/25/25 History 12.5 mg tablet omeprazole 20 mg capsule,delayed 20 mg PO BID 10/05/23 01/25/25 History release bupropion HCl 300 mg 24 hr tablet, 300 mg PO DAILY 11/16/23 01/25/25 History extended release lidocaine 5 % topical patch 1 patch topical DAILY 11/16/23 01/25/25 History ondansetron 4 mg disintegrating 4 mg PO PRN PRN nausea and vomiting 11/16/23 01/26/25 History tablet ondansetron 4 mg disintegrating 4 mg PO Q8H #10 tabs 02/16/24 01/25/25 Rx tablet tizanidine 2 mg tablet 2 mg PO BID PRN muscle pain 01/25/25 01/25/25 History Allergies Allergy/AdvReac Type Severity Reaction Status Date / Time meperidine (From Demerol) Allergy Severe paralysis Verified 02/16/24 09:48 Penicillins (PENICILLINS) Allergy Unknown Hives Verified 01/26/25 14:58 amoxicillin Allergy Hives Verified 01/26/25 14:58 Review of Systems Review of Systems ROS: Yes All systems reviewed with the patient and are negative except as otherwise documented ENT Ears, Nose, Mouth, and Throat: Yes system reviewed and no additional complaints, except as documented Cardiovascular Cardiovascular: Reports dyspnea on exertion Respiratory Respiratory: Reports cough and Reports dyspnea on exertion Gastrointestinal Gastrointestinal: Reports fecal incontinence, Reports loose stools and Reports vomiting Exam Vital Signs (past 8 hours): - 01/29/25 07:00 01/29/25 07:21 01/29/25 08:11 Temperature 97.2 F L Pulse Rate 83 Respiratory Rate 24 Blood Pressure 96/69 Pulse Oximetry 100 100 96 Oxygen Delivery Method Nasal Cannula High Flow Nasal Cannula Oxygen Flow Rate 7 7 7 01/29/25 11:22 01/29/25 12:01 Temperature 97.7 F Pulse Rate 70 Respiratory Rate 17 Blood Pressure 88/54 L Pulse Oximetry 97 98 Oxygen Delivery Method Room Air Oxygen Flow Rate 0 Fraction of Inspired Oxygen 35 SaO2/FiO2 Ratio 268 Oxygen Delivery Method Room Air Oxygen Flow Rate 0 Const General: cooperative and ill appearing Nutritional Appearance: average body habitus HENKS Head: normal to inspection Eyes General: appearance normal, both eyes and all related structures Neck Neck: normal visual inspection Chest Chest: normal inspection of the chest Resp Effort & Inspection: normal respiratory effort and able to speak in complete sentences Auscultation: clear to auscultation bilaterally Cardio Palpation: normal PMI Rate: regular rate Rhythm: regular rhythm Heart Sounds: S1 normal and S2 normal GI Inspection: normal to inspection Back/Spine/Pelvis Back: normal to inspection Skin General: no rashes or lesions noted Neuro General: patient alert and patient oriented x3 Psych Appearance: disheveled Objective ECG Impression: NSR with non specific STT changes. Labs 01/29/25 04:30 01/29/25 04:30 Labs: Laboratory Results - last 24 hr 01/28/25 01/29/25 01/29/25 15:41 00:30 04:30 WBC 4.4 L D RBC 2.69 L Hgb 9.5 L Hct 27.2 L MCV 101.0 H MCH 35.3 H MCHC 34.9 RDW 15.0 H Plt Count 129 L Neut % (Auto) 89.8 H Lymph % (Auto) 7.9 L [place] % (Auto) 2.1 L Eos % (Auto) 0.0 L Baso % (Auto) 0.2 Neut # (Auto) 4000 Lymph # (Auto) 300 L [place] # (Auto) 100 Eos # (Auto) 0 Baso # (Auto) 0 Sodium 131 L Potassium 3.3 L Chloride 101 Carbon Dioxide 18 L BUN 10 Creatinine 0.73 Estimated GFR > 60 BUN/Creatinine Ratio 13.7 Glucose 156 H Calcium 7.8 L Troponin I 0.622 H* 0.371 H* NT-Pro-B Natriuret Pep 48160 H 01/29/25 08:36 WBC RBC Hgb Hct MCV MCH MCHC RDW Plt Count Neut % (Auto) Lymph % (Auto) [place] % (Auto) Eos % (Auto) Baso % (Auto) Neut # (Auto) Lymph # (Auto) [place] # (Auto) Eos # (Auto) Baso # (Auto) Sodium Potassium Chloride Carbon Dioxide BUN Creatinine Estimated GFR BUN/Creatinine Ratio Glucose Calcium Troponin I 0.239 H* NT-Pro-B Natriuret Pep PFSH Medical History (Updated 01/29/25 @ 15:12 by Heath Flores MD) Anxiety (2006) Chickenpox (1977) Chronic back pain (1994) Fibroids (Unknown) Heavy menstrual period (1991) Painful menstrual periods (1991) Endometriosis (1991) Genital warts (1991) Chlamydia (1985) Abnormal Pap smear of cervix (1991) Frequent UTI (Unknown) IBS (irritable bowel syndrome) (2007) Depression (2006) Surgical History Hx of tubal ligation (1994) Hx of tonsillectomy (1978) Family History Father Age: 77 Heart disease Hypertension High cholesterol Mother Mental health problem Grandfather Heart disease Hypertension Grandmother No problems noted. Grandfather No problems noted. 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 Assessment & Plan Assessment and plan (1) Acute systolic (congestive) heart failure: Status: Acute (2) NSTEMI (non-ST elevated myocardial infarction): Status: Acute (3) Pulmonary edema cardiac cause: Status: Acute (4) Acute alcoholic pancreatitis: Qualifiers: Acute pancreatitis complication: unspecified Qualified Code(s): K85.20 - Alcohol induced acute pancreatitis without necrosis or infection Status: Acute Plan Please obtain following labs: Hepatitis-B and C, HIV testing due to high-risk lifestyle Serial lipase levels Watch for alcohol withdrawals Aspirin 81 mg daily Metoprolol succinate 25 mg daily Entresto 24-26 mg 1 tablet twice daily Spironolactone 12.5 mg daily Patient currently has low blood pressure therefore advised stepwise approach to starting guideline directed medical therapy for her acute systolic heart failure. Assessment & Plan narrative: 54-year-old female with past medical history of heavy alcohol abuse, smoking admitted to the hospital with nausea vomiting abdominal pain. She has a past medical history significant for hypertension gastroesophageal reflux disease rectal prolapse, depression chronic back pain secondary to work-related injury admitted to the hospital. She developed acute respiratory distress requiring high-flow oxygen. There was a suspected diagnosis of ARDS secondary to acute pancreatitis. Patient was started on diuretics and high-dose steroids. She had elevated troponin of 0.622 to 0.239 now trending down. Pro BNP: 88887. EKG showed normal sinus rhythm with nonspecific ST-T changes. 1. Acute pancreatitis: This is most likely due to chronic alcohol use. No documented evidence of acute biliary disease. Defer to hospitalist for further diagnostic evaluation. 2. Acute respiratory distress syndrome: This could be multifactorial as it could be an early manifestation of acute pancreatitis or flash pulmonary edema due to acute systolic heart failure. She was started on high-dose steroids and diuretics. Patient received high-flow oxygen along with steroids and diuretics. Patient currently not requiring oxygen. Chest x-ray seems to be stable with no worsening of pulmonary edema. 3. Acute systolic heart failure. Patient has reduced ejection fraction with evidence of multisegment wall motion abnormalities consistent with multivessel coronary artery disease. 4. Non ST-elevation myocardial infarction. Patient had elevated troponins which have since trended down. EKG showed normal sinus rhythm with nonspecific ST-T changes. No prior EKG available for comparison. 5. Coronary artery disease: Patient is going to need coronary angiography for acute systolic heart failure with multi segmental wall motion abnormalities. 6. Chronic alcohol abuse. Concern for alcohol withdrawal syndrome being addressed by hospitalist service 7. Chronic smoking: Patient is currently on NRT, Wellbutrin. 8. Psychosocial issues including chronic back pain, physical limitation, depression. Patient reported that she has a very nice primary care provider at her local [facility]. Time-Based Coding :: [TOTAL MINUTES 70minutes]spent with patient and on the chart (including review of chart, obtaining history, exam, reviewing outside data, placing orders, documenting exam and treatment plan, and counseling patient) on [DATE].
[2025-01-29] MEDS: ENOXAPARIN 40 MG/0.4 ML SYRINGE SUBCUT (16:29)
[2025-01-29] MEDS: METOPROLOL ER 25 MG TABLET 12.5 MG PO (16:29)
[2025-01-29] MEDS: POTASSIUM CHLORIDE 20 MEQ TAB PO (16:30)
--- NOTE | 2025-01-29 16:45 | CM.DPNOTE ---
DCP note OPERATIONS ANALYST reviewed EMR per provider in morning rounds, pt improving. Cardiology consult pending. SOB improved. Echo pending. anticipate dc tomorrow. per previous CM notes, pt has appropriate OP ETOH resources for cessation/reduction of use. P: dc home tomorrow with OP f/u and son support. no CM needs at this time will continue to follow in case any should arise MIQUEL Watson
--- NOTE | 2025-01-29 17:27 | PC.NURSE ---
Pt transitioned off oxygen to RA. Echo completed at bedside and with cardiology consult. Pt a little delirious this afternoon after getting the IV steroids. Pt OOB walking in room independently, showered this evening. Multiple BM's, which is usual for pt with her IBS. Little appetite. Son at bedside for dinner. Potential DC tomorrow.
[2025-01-30] VITALS (7 sets, daily range): BP systolic 88–109; BP diastolic 61–74; PULSE 69–98; RESP 18–20; TEMP 37.1; O2SAT 96–97
[2025-01-30 05:17] LABS: Add Manual Diff / Slide Review NO; Hematocrit 27.9 % (36-46); Hemoglobin 9.5 g/dL (12.0-16.0); Lymphocytes Absolute Auto 600 /uL (1100-4500); Mean Corpuscular HGB Conc 34.1 % (30-36); Mean Corpuscular Hemoglobin 34.5 PG (26-34); Mean Corpuscular Volume 101.3 fL (80-100); Platelet Count 150 X10^3/uL (150-400)
[2025-01-30 05:25] LABS: Blood Urea Nitrogen 18 mg/dL (7-17); Calcium 8.2 mg/dL (8.4-10.2); Carbon Dioxide 19 mmol/L (22-32); Chloride 102 mmol/L (98-107); Estimated Glomerular Filt Rate > 60 mL/min (>60); Glucose 138 mg/dL (70-99); HEMOLYSIS < 15 (0-50); Potassium 3.4 mmol/L (3.4-5.1); Sodium 133 mmol/L (137-145)
--- NOTE | 2025-01-30 08:00 | PM.DS.1 ---
History of Present Illness History of Present Illness Date Patient Seen: 01/30/25 Chief complaint: per pt pancreatitis attack Narrative: The pt is a 54 yo who presents to the ER tonight due to concerns abot abdominal pain, constant , radiating to the back, the pain started about 24 hours ago, +N/V this morning, dry heaving. This will be her second time to have this pain. Typically she drinks 4-5 tall boys, 24 oz/can, mixed drinks, last drink was just prior to the onset of the pain. Never had amelia, no change in bowel habits, she has lost 25 lb over the past 4 months, she has chronic diarrhea, she does have a hx of HTN, he had a hx of EGD 15 years ago. Discharge Providers Provider Date of admission: 01/25/25 19:26 Discharge Date: 01/30/25 Primary care physician: Akshat Mckeon PA-C Consults: 01/25/25 22:47 Consult to Dietitian, Adult Routine Comment: Reason For Exam: withdrawl symptoms 01/25/25 23:32 Consult to PORTRAIT PAINTER - Group Billing Coordinator Routine Comment: Group Billing Coordinator Consult needed for:: Unemployed 01/26/25 11:10 Consult to Pharmacy Routine Comment: high fall risk 01/28/25 16:45 Consult to Cardiology Routine Comment: Consulting Provider: Heath Flores Reason for consultation: Acute TN and Pulmonary Edema Has provider been notified: Yes Discharge provider: Paul Mina MD Summary Hospital Course Hospital Course: The pt is a 54 yo who presents to the ER tonight due to concerns abot abdominal pain, constant, radiating to the back, the pain started about 24 hours ago, +N/V this morning, dry heaving. This will be her second time to have this pain. Typically she drinks 4-5 tall boys, 24 oz/can, mixed drinks, last drink was just prior to the onset of the pain. Never had amelia, no change in bowel habits, she has lost 25 lb over the past 4 months, she has chronic diarrhea, she does have a hx of HTN, he had a hx of EGD [address] Yancey H&P. 01/27: She feels much better today, denies dyspnea. She was on oxygen. She was noted to be tachycardic but she denies anxiety, tremors, or abdominal pain. She was very slowly advancing diet. No BM, positive flatus, no nausea or vomiting. 01/28: Overnight she went into a respiratory crisis and this morning is on 40% high-flow nasal cannula, up from 3 L nasal cannula. Chest x-ray reveals pulmonary edema. Chest CT angiogram shows no pulmonary embolus and confirms the pulmonary edema. Her IV fluid has been stopped and she will receive a dose of Lasix. She is transferred to the intensive care unit. The potassium is 3.3 so she will receive 20 mEq IV. The creatinine is 0.7. The white blood count is 10.6 with a hemoglobin of 9.7. The lipase has come down to 432. 01/29: The troponin level yesterday afternoon was quite high at 0.6-2, dropping to 0.371 this morning. She was started on dexamethasone for possible ARDS and this morning feels compellingly better. She has not had any shortness of breath or chest pain since yesterday morning. Her echocardiogram shows an EF of 30-35% with many wall areas of hypokinesis and akinesis. She was seen by Cardiology today and discussed with Dr. Flores. She will be started on aspirin and as her blood pressure/heart rate tolerate it will be also started on metoprolol, Entresto and spironolactone. She will ultimately need a heart catheterization so will also be checked for viral hepatitis and HIV. 01/30: On the day of discharge she was up and about. She was tolerating the metoprolol so a small dose of spironolactone was added but her blood pressure promptly dropped into the 80s so that was held. Unfortunately the recommended heart failure medicines are not going to be able to be fully started at this time. We are giving her only 12.5 mg of metoprolol. Her hydrochlorothiazide and Losartan will be held. The Entresto and Spironolactone have not been started due to the hypotension. Hemoglobin 9.5. White blood count 12.1. BMP normal. O: NAD, alert and oriented. Sitting up, walking around, looking much much better. Lungs are clear, normal rate and effort. Heart is regular, no murmur gallop or rub. Abdomen is soft, non distended. Not tender. Extremities are free of edema. IMAGING: Abdomen US: 1. Fin peripancreatic edema related to acute pancreatitis. A hypoechoic region in the pancreatic body/tail may represent focal pancreatic necrosis versus small peripancreatic collection or underlying cyst. 2. Common bile duct is dilated to 9 mm. No choledocholithiasis or cholelithiasis identified. Biliary dilatation may be reactive to the pancreatic inflammation. MRCP or ERCP could be performed for further evaluation if indicated clinically. CTAP: Acute necrotic pancreatitis. There is moderate peripancreatic edema and a focal area of parenchymal hypoenhancement in the posterior body. Distended gallbladder. No radiopaque gallstones. Ultrasound could further evaluate if needed. Edema seen surrounding the pancreas extends to the lesser sac and duodenal region. No drainable fluid collection at this time. Other incidental and nonacute findings above Alcoholic Pancreatitis Alcohol use disorder HTN, stable. Acute hypoxic respiratory failure CHF with Elevated Troponin/NSTEMI PLAN: Discharge home per Cardiology and begin metoprolol. Stopped home losartan and hydrochlorothiazide. Did not tolerate trial of low-dose spironolactone. Did not have Entresto available to trial. Defer to PCP and Cardiology. During this hospitalization her alcoholic withdrawal and pancreatitis improved with Librium. She then experienced a non ST elevation TN with pulmonary edema (treated with Lasix x2) and was diagnosed with severe cardiomyopathy. She was seen by Cardiology with recommendations for aspirin, Entresto, metoprolol and spironolactone. See progression of that trial above. Labs done for pre heart catheterization assessment including HIV and viral hepatitis studies are still pending. Her echocardiogram shows an EF of 30-35% with many wall areas of hypokinesis and akinesis. Status at Discharge Cognitive/behavioral status at discharge: oriented Functional status at discharge: independent ambulation Overall status at discharge: patient is back to baseline Time Spent with Patient Time spent: Greater than 30 minutes Exam Vital Signs (past 8 hours): - 01/30/25 03:00 01/30/25 04:41 01/30/25 04:41 Temperature 98.8 F Pulse Rate 98 H 79 Respiratory Rate 18 20 Blood Pressure 102/69 Pulse Oximetry 97 Oxygen Flow Rate 0 Fraction of Inspired Oxygen 35 SaO2/FiO2 Ratio 268 Oxygen Delivery Method Room Air Oxygen Flow Rate 0 Objective Labs 01/30/25 04:19 01/30/25 04:19 Labs: Laboratory Results - last 24 hr 01/27/25 01/29/25 01/30/25 15:26 08:36 04:19 WBC 12.1 H D RBC 2.76 L Hgb 9.5 L Hct 27.9 L MCV 101.3 H MCH 34.5 H MCHC 34.1 RDW 15.3 H Plt Count 150 Neut % (Auto) 88.3 H Lymph % (Auto) 5.0 L [place] % (Auto) 6.4 Eos % (Auto) 0.0 L Baso % (Auto) 0.3 Neut # (Auto) 21630 H Lymph # (Auto) 600 L [place] # (Auto) 800 Eos # (Auto) 0 Baso # (Auto) 0 Sodium 133 L Potassium 3.4 Chloride 102 Carbon Dioxide 19 L BUN 18 H Creatinine 1.08 H Estimated GFR > 60 BUN/Creatinine Ratio 16.7 Glucose 138 H Calcium 8.2 L Troponin I 0.239 H* A.calcoaceticus-baumannii cmplx PCR Not detected Bacteroides fragilis Not detected Sindhu albicans (PCR) Not detected Sindhu auris (PCR) Not detected C. glabrata (PCR) Not detected C. krusei (PCR) Not detected C. parapsilosis (PCR) Not detected C. tropicalis (PCR) Not detected C. neoform/gattii (PCR) Not detected Enterobacterales (PCR) Not detected E. cloacae complex PCR Not detected Enterococc faecalis PCR Not detected Enterococc faecium PCR Not detected E. coli (PCR) Not detected H. influenzae (PCR) Not detected Klebsiella aerogenes (PCR) Not detected Klebsiella oxytoca PCR Not detected Klebsiella pneumoniae Not detected List. monocytogenes PCR Not detected N. meningitidis (PCR) Not detected Proteus species (PCR) Not detected Salmonella spp. (PCR) Not detected Serratia marcescens PCR Not detected Staphylococcus sp PCR Detected Staph aureus (PCR) Not detected mecA/C & MREJ Resist Gene Not applicable mecA/C-Methicil Resis Gene Not applicable mcr-1 Colistin Res Gene PCR Not applicable Staph epidermidis (PCR) Not detected Staph lugdunensis PCR Not detected S. maltophilia (PCR) Not detected Streptococcus sp PCR Not detected Group A Strep (PCR) Not detected Strep agalactiae (PCR) Not detected Strep pneumoniae (PCR) Not detected P. aeruginosa (PCR) Not detected Tiffany/B-Vanco Res Genes Not applicable blaIMP Car res Gene PCR Not applicable KPC-Carbap Res Gene PCR Not applicable blaNDM Car Res Gene PCR Not applicable OXA-48 Carbapenem Resis Gene (PCR) Not applicable blaVIM Car Res Gene PCR Not applicable CTX-M Gene Resistance (PCR) Not applicable [facility] Medical History (Updated 01/29/25 @ 15:12 by Heath Flores MD) Anxiety (2006) Chickenpox (1977) Chronic back pain (1994) Fibroids (Unknown) Heavy menstrual period (1991) Painful menstrual periods (1991) Endometriosis (1991) Genital warts (1991) Chlamydia (1985) Abnormal Pap smear of cervix (1991) Frequent UTI (Unknown) IBS (irritable bowel syndrome) (2007) Depression (2006) Surgical History Hx of tubal ligation (1994) Hx of tonsillectomy (1978) Family History Father Age: 77 Heart disease Hypertension High cholesterol Mother Mental health problem Grandfather Heart disease Hypertension Grandmother No problems noted. Grandfather No problems noted. 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 Pt sustained back injury and on work related disability. Discharge Plan Discharge Plan Patient Disposition: Home Provider Discharge Comment: See JOSUE Mckeon in [address] Flores in 1 week. Discharge orders & Medications Prescriptions: New atorvastatin 20 mg Tablet 40 mg PO DAILY Qty: 30 0RF aspirin 81 mg Tablet,Delayed Release (Dr/Ec) 81 mg PO DAILY Qty: 30 0RF nicotine 21 mg/24 hr Patch 24 Hour 21 mg topical DAILY Qty: 30 0RF folic acid 1 mg Tablet 1 mg PO DAILY Qty: 30 0RF metoprolol succinate 25 mg Tablet Extended Release 24 Hr 12.5 mg PO DAILY Qty: 30 0RF duloxetine 30 mg Capsule,Delayed Release(Dr/Ec) 60 mg PO DAILY Qty: 30 0RF thiamine mononitrate (vit B1) 100 mg Tablet 100 mg PO DAILY Qty: 30 0RF multivitamin with folic acid [Tab-A-Ghanshyam] 400 mcg Tablet 1 tab PO DAILY Qty: 30 0RF Continued bupropion HCl 300 mg tablet extended release 24 hr 300 mg PO DAILY lidocaine 5 % adhesive patch,medicated 1 patch topical DAILY ondansetron 4 mg tablet,disintegrating 4 mg PO PRN PRN (Reason: nausea and vomiting) ondansetron 4 mg tablet,disintegrating 4 mg PO Q8H Qty: 10 0RF loperamide 2 mg capsule 2 mg PO 4XD PRN (Reason: Diarrhea) omeprazole 20 mg capsule,delayed release(DR/EC) 20 mg PO BID tizanidine 2 mg tablet 2 mg PO BID PRN (Reason: muscle pain) Discontinued atorvastatin 40 mg tablet 40 mg PO DAILY losartan-hydrochlorothiazide 50-12.5 mg tablet 1 tab PO DAILY Follow up/Referrals: Akshat Mckeon PA-C [Primary Care Provider, Medical] Discharge Health Status Health Concerns: Do not drink Alcohol Diet/Activity/Treatments Diet: Diet as Tolerated Visit Report/Discharge Packet Instructions: DI for Pancreatitis, DI for Heart Failure, Atorvastatin, Metoprolol Stand Alone Forms: Congestive Heart Failure, Patient Portal/API, Stroke Signs & Symptoms Discharge Data Primary Care Provider: Akshat Mckeon
[2025-01-30 08:16] LABS: Hepatitis B Surface Antigen NEGATIVE s/c (NEGATIVE)
[2025-01-30] MEDS: POTASSIUM CHLORIDE 20 MEQ TAB PO (08:38)
[2025-01-30] MEDS: ATORVASTATIN 20 MG TABLET 40 MG PO (08:38)
[2025-01-30] MEDS: tiZANidine 4 MG TABLET 2 MG PO (08:39)
[2025-01-30] MEDS: ACETAMINOPHEN 325 MG TABLET 650 MG PO (08:39)
[2025-01-30] MEDS: MULTIVITAMIN 1 TABLET 1 TAB PO (08:39)
[2025-01-30] MEDS: METOPROLOL ER 25 MG TABLET 12.5 MG PO (08:40)
[2025-01-30] MEDS: DICYCLOMINE 10 MG CAPSULE 20 MG PO (08:40)
[2025-01-30] MEDS: ASPIRIN EC 81 MG TABLET PO (08:40)
[2025-01-30] MEDS: NICOTINE 21 MG PATCH TOP (08:41)
[2025-01-30] MEDS: THIAMINE 100 MG TABLET PO (08:41)
[2025-01-30] MEDS: FOLIC ACID 1 MG TABLET PO (08:41)
--- NOTE | 2025-01-30 11:58 | CM.DPNOTE ---
DCP note RO[facility] reviewed EMR per provider, cleared to dc today per RN, pt has available resources and ride home. no new CM needs at this time. P: dc home today with family support. no CM needs. will continue to follow in case any should arise MIQUEL Watson
--- NOTE | 2025-01-30 13:18 | PC.NURSE ---
Discharge: Pt agreeable to discharge. Pt provided information and education regarding HF, new medications, weight measurements, followup, and NICHELLE. Pt able to verbalize understanding and teach-back. IV removed. Pt discharged with all personal belongings. Pt wheeled via w/c to private vehicle by [facility] at approximately 1256.
[2025-01-31 00:11] LABS: Hepatitis A Antibody IgM Negative (Negative); Hepatitis B Core Antibody IgM Negative (Negative); Hepatitis C Antibody Non Reactive (Non Reactive)
[2025-02-01 20:41] LABS: HIV 1 RNA Non Reactive (Non Reactive); HIV 2 RNA Non Reactive (Non Reactive)
== END 2025-01-30 12:56 | disposition home or self-care (01) | DRG 438 ==
LOC: ED 18:50 → AC 19:26 → ICU 01-28 10:30
PROVIDERS: Family Medicine; Hospitalist; Internal Medicine; Surgery; Admitting Provider Internal Medicine; Emergency Provider Emergency Medicine; PCP Physician Assistant; Referring Provider Emergency Medicine; Visit Provider Internal Medicine
DX: K85.20 Alcohol induced acute pancreatitis without necrosis or infection (principal); I21.4 Non-ST elevation (NSTEMI) myocardial infarction; I50.21 Acute systolic (congestive) heart failure; J18.9 Pneumonia, unspecified organism; J96.01 Acute respiratory failure with hypoxia; I42.9 Cardiomyopathy, unspecified; F10.939 Alcohol use, unspecified with withdrawal, unspecified; F17.200 Nicotine dependence, unspecified, uncomplicated; I25.10 Atherosclerotic heart disease of native coronary artery without angina pectoris; F32.A Depression, unspecified; G89.29 Other chronic pain; M54.9 Dorsalgia, unspecified; K21.9 Gastro-esophageal reflux disease without esophagitis; I11.0 Hypertensive heart disease with heart failure; Y90.0 Blood alcohol level of less than 20 mg/100 ml
CPT/HCPCS: 36415; 71045; 71275; 74177; 76705; 80048; 80053; 80061; 80074; 80320; 81003; 81015; 82140; 82805; 83690; 83880; 84484; 85025; 85027; 85610; 85730; 87040; 87077; 87154; 87340; 87522; 87535; 87538; 93005; 93010; 93306; 94640; 96361; 96365; 96375; 96376; 99284; J0696; J0780; J1100; J1171; J1650; J1938; J2060; J2405; J2470; J2765; J3010; J7030; J7050; J7060; J7613; Q9967

== ENCOUNTER → 2025-03-01 14:14 | Outpatient (CLI) | payer MEDICAID, SELFPAY ==
[2025-01-25 23:22] VITALS: BMI 21.2
[2025-03-01 15:47] LABS: Hematocrit 39.4 % (36-46); Hemoglobin 13.2 g/dL (12.0-16.0); Mean Corpuscular HGB Conc 33.5 % (30-36); Mean Corpuscular Hemoglobin 32.6 PG (26-34); Mean Corpuscular Volume 97.3 fL (80-100); Platelet Count 266 X10^3/uL (150-400)
[2025-03-01 17:28] LABS: Blood Urea Nitrogen 13 mg/dL (7-17); Calcium 10.3 mg/dL (8.4-10.2); Carbon Dioxide 23 mmol/L (22-32); Chloride 102 mmol/L (98-107); Estimated Glomerular Filt Rate > 60 mL/min (>60); Glucose 80 mg/dL (70-99); HEMOLYSIS < 15 (0-50); Potassium 4.9 mmol/L (3.4-5.1); Sodium 137 mmol/L (137-145)
== END ==
PROVIDERS: PCP Physician Assistant; Referring Provider Physician Assistant; Visit Provider Internal Medicine Cardiovascular Disease
DX: I21.4 Non-ST elevation (NSTEMI) myocardial infarction (principal); I50.20 Unspecified systolic (congestive) heart failure
CPT/HCPCS: 36415; 80048; 85027

== ENCOUNTER → 2025-03-07 08:52 | Outpatient (CLI) | payer MEDICAID, SELFPAY ==
[2023-10-05 13:58] VITALS: BMI 22.8
[2025-01-25 23:22] VITALS: BMI 21.2
--- NOTE | 2025-03-07 08:53 | DI.MRI.S_ITS ---
PROCEDURE: MR LUMBAR SPINE WO CON INDICATIONS: Pain TECHNIQUE: Noncontrast sagittal T1 spin echo and T2 fast echo, sagittal STIR, and T2 fast spin echo through the lumbar spine. In cases with scoliosis, additional coronal T2 fast spin echo may be performed. COMPARISON: None. FINDINGS: Image quality: Excellent. Alignment and Curvature: There is S shaped scoliosis of lower thoracic and lumbar spine. 3-4 mm retrolisthesis at T12-L1 and L1-2 levels are seen. Bone Marrow: There is no marrow edema. No acute vertebral body compression fractures. Spinal Cord: Conus medullaris terminates at the L1 level. Visualized cord demonstrates normal signal and size. Paraspinous Soft Tissues: No paravertebral masses. T12-L1: Loss of disc height, degenerative endplate changes and disc desiccation is seen . There is diffuse disc bulge and bilateral facet arthrosis with superimposed central to left-sided disc herniation and extrusion causing mild central canal stenosis, severe central canal stenosis and [id number] right-sided neural foraminal narrowing. Bulging disc is seen contacting left T12 nerve root. L1-L2: Loss of disc height, and disc desiccation is seen. Diffuse disc bulge and central to right-sided disc herniation with bilateral facet arthrosis causing moderate central canal stenosis, severe right-sided neural foraminal narrowing and moderate to severe left-sided neural foraminal narrowing. Bulging disc likely contacting bilateral L1 nerve roots. L2-L3: Loss of disc height and disc desiccation. Broad-based disc bulge and bilateral facet arthrosis with hypertrophy of ligamentum flavum causing moderate central canal stenosis, moderate to severe right-sided neural foraminal narrowing and moderate left-sided neural foraminal narrowing. Bulging disc is seen contacting bilateral L2 nerve roots. L3-L4: There is disc desiccation and loss of disc height. Broad-based disc bulge and bilateral facet arthrosis with hypertrophy of ligamentum flavum causing severe central canal stenosis and severe bilateral neural foraminal narrowing. Bulging disc likely contacting bilateral L3 nerve roots. L4-L5: There is loss of disc height and disc desiccation. Broad-based disc bulge and bilateral facet arthrosis with hypertrophy of ligamentum flavum causing moderate central canal stenosis and severe bilateral neural foraminal narrowing. Bulging disc likely contacting bilateral L4 nerve roots. L5-S1: There is disc desiccation and loss of disc height. Diffuse disc bulge and left lateral disc herniation with bilateral facet arthrosis causing moderate to severe left-sided neural foraminal narrowing and mild right-sided neural foraminal narrowing. Bulging disc likely contacting left L5 nerve root. IMPRESSION: 1. Mild S shaped scoliosis of lower thoracic and lumbar spine. Grade 1 retrolisthesis at T12-L1 and L1-2 levels as above. No acute compression fracture. 2. Moderate disc disease throughout lumbar spine causing various degrees of central canal stenosis and bilateral neural foraminal narrowing as described above. 3. No gross paraspinous soft tissue abnormalities. Dictated by: Winston Haq M.D. on 03/07/2025 at 10:40 Approved by: Winston Haq M.D. on 03/07/2025 at 10:53
== END ==
LOC: MRI 08:53
PROVIDERS: PCP Physician Assistant; Referring Provider Physician Assistant; Visit Provider Physician Assistant
DX: M51.16 Intervertebral disc disorders with radiculopathy, lumbar region (principal); M51.17 Intervertebral disc disorders with radiculopathy, lumbosacral region; M47.26 Other spondylosis with radiculopathy, lumbar region; M47.27 Other spondylosis with radiculopathy, lumbosacral region; M48.061 Spinal stenosis, lumbar region without neurogenic claudication; M48.07 Spinal stenosis, lumbosacral region; M43.15 Spondylolisthesis, thoracolumbar region; M43.16 Spondylolisthesis, lumbar region; M41.9 Scoliosis, unspecified
CPT/HCPCS: 72148